=== PATIENT | female | born 1960 | race Caucasian/White ===

== ENCOUNTER 2019-07-08 16:02 | Emergency (ER) | payer MEDICARE, OTHER, SELFPAY ==
[2019-07-08 16:24] VITALS: BP 107/87; PULSE 101; RESP 18; TEMP 37.1; O2SAT 98; BMI 34.7
--- NOTE | 2019-07-08 18:40 | XR_ITS ---
WS: [id number] CHEST 2 VIEWS HISTORY: Cough COMPARISON: 12/09/2018 Lungs: Hyperexpanded lungs with changes of emphysema. No pneumonia and normal vasculature. Cardiac size: Normal. Mediastinum/Aorta: Mild atherosclerosis aorta. No mediastinal widening. Bones: Normal. XR/XR chest 2V* [id number] IMPRESSION: 1. Mild chronic emphysema. 2. No pneumonia.
--- NOTE | 2019-07-08 20:07 | W.ED.GENADLT ---
HPI - General Adult General: Chief complaint: General Medical Stated complaint: coughing/cold symptoms Time Seen by Provider: 07/08/19 20:03 History of Present Illness: HPI narrative: Patient is a 59-year-old female comes in a 59 y/o female with productive cough for the last 5 days.Patient states she coughs up yellow and white phlegm. Patient says she's had a fever. She denies any ear pain or sore throat but does have some nasal drainage. Denies abdominal pain, Nausea, vomiting, chest pain, hematuria, dysuria, constipation, diarrhea, blood in the stool. Review of Systems General: Reports: 10 or more systems reviewed and unremarkable except in HPI and below PFSH ED PFSH: Statuses (acute, chronic, etc) shown below reflect problem list status as previously entered and may not be historically accurate Social History Smoking and tobacco status: current every day smoker Physical Exam Const: COMMON NORMALS: oriented x3 HENMT: COMMON NORMALS: normocephalic, TM's normal bilaterally and external nose normal HEAD & SCALP: normocephalic NOSE: external nose normal TYMPANIC MEMBRANE: TM's normal bilaterally MOUTH: oral and palatal mucosa normal THROAT: posterior oropharynx normal and uvula midline Eye: COMMON NORMALS: PERRL and conjunctivae normal GENERAL EYE: normal appearance of both eyes CONJUNCTIVA: Yes conjunctivae normal PUPIL: Yes PERRL Neck/C-Spine: COMMON NORMALS: supple GENERAL: Yes normal visual inspection Resp: COMMON NORMALS: normal respiratory effort, no retractions, no use of accessory muscles and clear to auscultation bilaterally AUSCULTATION: clear to auscultation bilaterally, wheezes (mild) expiratory wheezes and upper bilaterally and diminished lung sounds (bases bilaterally) Cardio: COMMON NORMALS: regular rate, regular rhythm, S1 normal heart sound, S2 normal heart sound, no gallops, no clicks, no murmurs and peripheral pulses 2+ throughout RATE: regular rate RHYTHM: regular rhythm HEART SOUNDS: S1 normal and S2 normal PERIPHERAL PULSES: pulses 2+ throughout GI: COMMON NORMALS: normal to inspection, nondistended, normoactive bowel sounds, soft to palpation, non-tender and no masses PALPATION: Yes soft : COMMON NORMALS: Yes no CVA tenderness BLADDER/KIDNEY EXAM: Yes no CVA tenderness Back/Pelvis: COMMON NORMALS: no CVA tenderness Extremity: COMMON NORMALS: normal to inspection Neuro: COMMON NORMALS: oriented x3 Course ED course: Chest x-ray was performed and pending final radiology report. I reviewed the image looks like patient might have some bronchitis and possible pneumonia starting. I will put patient on an antibiotic and steroid. Vital Signs: Vital signs: Vital Signs Temperature 98.8 F 07/08/19 16:24 Pulse Rate 76 07/08/19 21:43 Respiratory Rate 18 07/08/19 21:43 Blood Pressure 120/73 07/08/19 21:43 Pulse Oximetry 97 07/08/19 21:43 [facility] - General Adult Lab Data: Labs: Lab Results 07/08/19 07/08/19 07/08/19 Range/Units 20:00 20:00 20:20 WBC 14.7 H (4.0-10.0) 10^3/ uL RBC 5.00 (4.1-5.3) 10^6/u L Hgb 13.7 (11.5-15.3) g/dL Hct 42.9 (37.0-47.0) % MCV 85.8 (81-99) fL MCH 27.4 L (28.0-34.0) pg MCHC 31.9 (30.0-36.0) g/dL RDW 12.2 (12.1-15.1) % Plt Count 468 H (130-400) 10^3/c mm MPV 9.5 (7.4-10.4) fL Neut % (Auto) 54.1 % Lymph % (Auto) 37.5 % [place] % (Auto) 5.6 % Eos % (Auto) 1.8 % Baso % (Auto) 0.5 % Neut # (Auto) 8.0 H (1.8-7.7) 10^3/u L Lymph # (Auto) 5.5 H (0.8-4.8) 10^3/u L [place] # (Auto) 0.8 (0.2-0.9) 10^3/u L Eos # (Auto) 0.3 (0.0-0.8) 10^3/u L Baso # (Auto) 0.1 (0.0-0.1) 10^3/u L Nucleated RBC % (a uto) 0 % Nucleated RBCs # 0.0 /100WBC Sodium 142 (136-145) mmol/L Potassium 4.2 (3.5-5.1) mmol/L Chloride 103 (98-107) mmol/L Carbon Dioxide 23 (22-29) mmol/L Anion Gap 20.2 H (5-19) BUN 6 (6-20) mg/dL Creatinine 0.7 (0.5-0.9) mg/dL GFR Calculation 86.2 L (90-130) mL/min Glucose 82 (74-109) mg/dL Calcium 10.7 H (8.6-10.0) mg/Dl Total Bilirubin 0.2 (0.15-1.2) mg/dL AST 16 (0-32) U/L ALT 10 (0-33) U/L Alkaline Phosphata se 156 H (35-105) IU/L Total Protein 7.5 (6.6-8.7) g/dL Albumin 4.6 (3.5-5.2) g/dL Globulin 2.9 (1.3-4.6) g/dL Influenza Type A A g Negative (Negative) POC Influenza B Ag Negative (Negative) Discharge Plan Discharge Patient Disposition: Home, Self-Care Clinical Impression: Bronchitis, chronic obstructive w acute bronchitis Condition: Stable Prescriptions: New prednisone 20 mg tablet 20 mg PO TID Qty: 15 RF: 0 azithromycin 250 mg tablet See Rx Instructions .ROUTE .COMPLEX Qty: 6 RF: 0 No Action Lantus Solostar U-100 Insulin 100 unit/mL (3 mL) Insulin Pen 30 unit SUBCUT QAM RF: 0 Seroquel 25 mg Tablet 25 mg PO DAILY RF: 0 Prozac 40 mg Capsule 80 mg PO DAILY RF: 0 cyclobenzaprine 10 mg Tablet 10 mg PO TID PRN (Reason: Muscle Spasm) RF: 0 Advair Diskus 250-50 mcg/dose Blister With Device 1 inh INHALATION BID RF: 0 albuterol sulfate 2.5 mg /3 mL (0.083 %) Solution For Nebulization 2.5 mg INHALATION Q4H RF: 0 atorvastatin 10 mg Tablet 10 mg PO DAILY RF: 0 prazosin 1 mg Capsule 1 mg PO QPM RF: 0 isosorbide mononitrate 30 mg Tablet Extended Release 24 Hr 30 mg PO BID RF: 0 Stool Softener-Laxative 8.6-50 mg Tablet 1 tab-cap PO DAILY PRN (Reason: Constipation) RF: 0 aspirin 81 mg Tablet,Delayed Release (Dr/Ec) 81 mg PO DAILY RF: 0 gemfibrozil 600 mg Tablet 600 mg PO BID RF: 0 hydrocodone-acetaminophen 7.5-325 mg Tablet 1 tab PO Q6H PRN (Reason: Pain) RF: 0 Protonix 40 mg Tablet,Delayed Release (Dr/Ec) 40 mg PO BID RF: 0 Nitrostat 0.4 mg Tablet, Sublingual 0.4 mg SUBLINGUAL Q5M PRN (Reason: chest pain) RF: 0 Singulair 10 mg Tablet 10 mg PO DAILY RF: 0 Lasix 20 mg Tablet 20 mg PO DAILY PRN (Reason: Edema) RF: 0 ProAir HFA 90 mcg/actuation Hfa Aerosol Inhaler 2 puff INHALATION 6XD RF: 0 Claritin 10 mg Tablet 10 mg PO DAILY RF: 0 Humalog KwikPen Insulin 100 unit/mL Insulin Pen See Protocol unit SUBCUT RF: 0 Lantus Solostar U-100 Insulin 100 unit/mL (3 mL) Insulin Pen 20 unit SUBCUT QPM RF: 0 potassium gluconate 595 mg (99 mg) Tablet 595 mg PO DAILY RF: 0 magnesium oxide 400 mg magnesium Tablet 400 mg PO DAILY RF: 0 Women's 50 Plus Multivitamin 1 tab 1 tab PO DAILY RF: 0 Discharge Orders: Discharge Order (Routine); Ordered 07/08/19 Ordered By: Reji Ryan Referrals: Nikole Miller DO [Primary Care Provider] - Discharge Diet: Regular Discharge Activity: Resume usual activity Activity Restrictions/Additional Instructions: Follow-up with her primary care doctor in 5-7 days for reevaluation. Take full course of antibiotics and steroids as prescribed. Continue taking at home medications and using inhalers/ breathing treatments as previously prescribed. Discharge Date/Time: 07/08/19 21:46 Coding Level of Care Code ED Assistant Teacher Primary for Nancy Hayward
[2019-07-08 20:10] LABS: Basophils # 0.1 10^3/uL (0.0-0.1); Basophils % 0.5 %; Eosinophils # 0.3 10^3/uL (0.0-0.8); Eosinophils % 1.8 %; Hematocrit 42.9 % (37.0-47.0); Hemoglobin 13.7 g/dL (11.5-15.3); Lymphocytes # 5.5 10^3/uL (0.8-4.8); Lymphocytes % 37.5 %; Mean Corpuscular HGB Conc 31.9 g/dL (30.0-36.0); Mean Corpuscular Hemoglobin 27.4 pg (28.0-34.0); Mean Corpuscular Volume 85.8 fL (81-99); Mean Platelet Volume 9.5 fL (7.4-10.4); Monocytes # 0.8 10^3/uL (0.2-0.9); Monocytes % 5.6 %; Neutrophils % 54.1 %; Nucleated Red Blood Cells % 0 %; Platelet Count 468 10^3/cmm (130-400); Red Cell Distribution Width 12.2 % (12.1-15.1); White Blood Count 14.7 10^3/uL (4.0-10.0)
[2019-07-08] MEDS: ipratropium-albuterol 3 mL Neb INHALATION (20:38)
[2019-07-08 20:39] VITALS: PULSE 75; RESP 18; O2SAT 99
[2019-07-08 20:40] VITALS: PULSE 74; RESP 16; O2SAT 98
[2019-07-08] MEDS: predniSONE 20 mg Tablet 60 MG PO (21:37)
[2019-07-08 21:43] VITALS: BP 120/73; PULSE 76; RESP 18; O2SAT 97
[2019-07-08 21:56] LABS: Influenza A by IFA Negative (Negative)
[2019-07-08 21:57] LABS: Influenza B by IFA Negative (Negative)
[2019-07-09 03:44] LABS: Alanine Aminotransferase 10 U/L (0-33); Albumin Level 4.6 g/dL (3.5-5.2); Alkaline Phosphatase 156 IU/L (35-105); Anion Gap 20.2 (5-19); Aspartate Amino Transferase 16 U/L (0-32); Blood Urea Nitrogen 6 mg/dL (6-20); Calcium 10.7 mg/Dl (8.6-10.0); Carbon Dioxide 23 mmol/L (22-29); Chloride 103 mmol/L (98-107); Globulin 2.9 g/dL (1.3-4.6); Glomerular Filtration Rate 86.2 mL/min (90-130); Glucose 82 mg/dL (74-109); Potassium 4.2 mmol/L (3.5-5.1); Sodium 142 mmol/L (136-145); Total Bilirubin 0.2 mg/dL (0.15-1.2); Total Protein 7.5 g/dL (6.6-8.7)
== END 2019-07-08 21:46 | disposition home or self-care (01) ==
PROVIDERS: Emergency Provider Physician Assistant; Family Provider Family Medicine; PCP Family Medicine
DX: J44.0 Chronic obstructive pulmonary disease with (acute) lower respiratory infection (principal); J20.9 Acute bronchitis, unspecified; Z79.82 Long term (current) use of aspirin; F17.210 Nicotine dependence, cigarettes, uncomplicated; Z79.4 Long term (current) use of insulin
CPT/HCPCS: 36415; 71046; 80053; 85025; 87804; 99281; 99283; J7512

== ENCOUNTER → 2020-01-13 08:53 | Outpatient (BNVA) | payer MEDICARE, OTHER, SELFPAY | PROVIDERS: Family Provider Family Medicine; PCP Family Medicine; Visit Provider Family Medicine | DX: E78.2 Mixed hyperlipidemia (principal) | CPT/HCPCS: 80061 ==

== ENCOUNTER 2020-02-25 13:10 | Emergency (ER) | payer MEDICARE, OTHER, SELFPAY ==
[2020-02-25 13:13] VITALS: BP 144/88; PULSE 96; RESP 18; TEMP 36.8; O2SAT 97; BMI 35.6
--- NOTE | 2020-02-25 13:32 | CT_ITS ---
WS: [id number] CT FACIAL BONES TECHNIQUE: Contrast-enhanced facial bones with coronal and sagittal reformatted images. CLINICAL INFORMATION: L sided facial swelling COMPARISON: None. DLP: 774.[address] scans at [facility] use at least one of these dose optimization techniques: automat ed exposure control; mA and/or kV adjustment per patient size (includes targeted exams where dose is matched to clinical indication); or iterative reconstruction. FINDINGS: Enlargement of the left parotid gland with surrounding mild inflammatory stranding and edema consiste nt with parotiditis. Thickening of the adjacent left platysma. Heterogeneously enhancing intraparotid lesion measuring 2.1 x 1.6 x 1.9 CM. Additional smaller heterogeneously enhancing lesion in the righ t parotid gland measuring 0.7 x 1.0 x 1.1 CM. Slight asymmetry involving the right palatine tonsil and tongue base with mild mass effect on the tomi pharynx. Recommend direct visualization. Normal posterior nasopharynx. Prior postoperative changes left mastoidectomy right mastoid air cells are well aerated. Mild mucosal thickening paranasal sinuses. Small amount of fluid in the right maxillary sinus and sphenoid sinuse s. CT/CT facial bones w con [id number] IMPRESSION: 1. Inflammatory stranding and edema with enlargement of the left parotid gland consistent with parotiditis 2. Heterogeneous enhancing intraparotid lesion measuring up to 2.1 cm suspicio us for parotid neoplasm. Recommend ENT consultation. 3. Smaller heterogeneously enhancing right parotid lesion measuring 1.1 cm in maximum dimension. This lesion also suspicious for small parotid neoplasm. 4. Slight asymmetry of the right tongue base and palatine tonsil. Recommend di rect visualization. 5. Submandibular glands are normal. 6. Mild sinusitis with fluid in the right maxillary sinus and sphenoid sinuses . 7. Prior left mastoidectomy. Attempted notification RADHA Ferris at 02/25/2020 2:41 PM.
--- NOTE | 2020-02-25 13:34 | W.ED.GENADLT ---
Documented by User: RADHA Ferris 02/26/20 06:57 HPI - General Adult General: Chief complaint: General Medical Stated complaint: facial swelling Time Seen by Provider: 02/25/20 13:19 Source: patient Mode of arrival: ambulatory Limitations: no limitations History of Present Illness: HPI narrative: Patient is a 59-year-old female presents to ED today with complaints of left-sided facial swelling that began a few hours ago after eating. Patient states the left side of her face is extremely painful. She states pain seems to be worse when she is tried to eat or drink or movement of her jaw. Patient has never had any previous similar episodes. She does have a history of a cholesteatoma and subsequently mastoidectomy to the left ear but that does not seem to be bothering her today. Onset (ago): hour(s) Location: face Pain Consistency: constant Exacerbating factors: eating Associated symptoms: Deny chest pain, dyspnea, headache(s), malaise, nausea, rash or vomiting Treatments prior to arrival: other (hydrocodone) Review of Systems Const: Denies: fever(s), chills, body aches, fatigue or malaise Eyes: Denies: change in vision, blurry vision, blind spots, photophobia, eye discharge, floaters or seeing flashes ENMT: Reports: sinus pain (L sided facial pain/swelling); Denies: throat pain, enlarged tonsils, odynophagia, mouth pain, swelling of lips/tongue, oral sores, dental pain, ear or mastoid pain, ear discharge, change in hearing, tinnitus, nasal discharge or nasal congestion Card: Denies: chest pain Resp: Denies: dyspnea GI: Denies: nausea or vomiting Musc: Denies: neck pain Skin/Breast: Denies: rash Neuro: Denies: headache(s) PFS ED PFSH: Medical History (Updated 02/25/20 @ 16:26 by RADHA Ferris) Chest pain COPD (chronic obstructive pulmonary disease) GERD (gastroesophageal reflux disease) Hyperlipidemia PTSD (post-traumatic stress disorder) Type 2 diabetes mellitus, with long-term current use of insulin Surgical History (Updated 01/13/20 @ 08:33 by Gerri Billy DO) H/O section History of mastoidectomy S/P appendectomy S/P cholecystectomy S/P hysterectomy S/P rotator cuff repair Family History Other Diabetes Heart disease Hypercholesterolemia Hypertension Osteoporosis Social History Smoking and tobacco status: current every day smoker cigarettes Packs smoked per day: 1 Alcohol intake: never Physical Exam Const: COMMON NORMALS: no acute distress, patient oriented x3, no limitations and alert HENMT: COMMON NORMALS: normocephalic, atraumatic, hearing grossly normal bilaterally, external ears normal, EAC's normal, Normal external nose present, Normal nasal mucous membranes and turbinates present, moist oral mucous membranes, oropharynx normal and gingiva normal HEAD & SCALP: normal to inspection, normocephalic and atraumatic FACE & SINUS: sinuses nontender and other (L facial swelling over parotid gland) NOSE: Normal external nose present, Normal nares present and Normal nasal mucous membranes and turbinates present EXTERNAL EAR: Yes external ears normal EXTERNAL AUDITORY CANAL: EAC's normal TYMPANIC MEMBRANE: TM abnormal (hx of cholesteatoma) TM laterality: left MOUTH: Normal oral and palatal mucosa present, lip normal, tongue normal and Abnormal salivary glands and ducts (ducts appear normal; swelling to L parotid gland ) TEETH & GINGIVA: Yes edentulous THROAT: posterior oropharynx normal, tonsils normal and uvula midline Eye: COMMON NORMALS: Equal, round and reactive pupils present, EOMs intact bilaterally, conjunctivae normal and no scleral icterus GENERAL EYE: appearance normal, both eyes and all related structures CONJUNCTIVA: Yes conjunctivae normal PUPIL: Yes Equal, round and reactive pupils present Neck/C-Spine: COMMON NORMALS: full ROM and no lymphadenopathy Resp: COMMON NORMALS: normal respiratory effort and clear to auscultation bilaterally AUSCULTATION: clear to auscultation bilaterally Cardio: COMMON NORMALS: regular rate and regular rhythm RATE: regular rate RHYTHM: regular rhythm Neuro: COMMON NORMALS: patient oriented x3 and CN's II-XII intact bilaterally SENSORIUM/ORIENTATION: Yes alert Skin: COMMON NORMALS: no rashes or lesions noted GENERAL SKIN EXAM: no rashes or lesions noted Course Consultations: Consultation #1: Melani Valencia ENT (spoke to nurse at his office who went over CT findings with physician); does not recommend abx/steroids; will see patient on ; confirmed he was not concerned with mild mass effect at this time Vital Signs: Vital signs: Vital Signs Temperature 98.3 F 02/25/20 13:13 Pulse Rate 91 02/25/20 16:43 Respiratory Rate 18 02/25/20 16:43 Blood Pressure 121/60 02/25/20 16:43 Pulse Oximetry 95 02/25/20 16:43 MDM - General Adult MDM Narrative: Medical decision making narrative: Patient appears in no acute distress. She is speaking normally. She is controlling her own secretions. She is been able to drink since swelling started. At this point ENT did not recommend steroids or antibiotics. They will see patient on . Strict return to ED precautions given. Lab Data: Labs: Lab Results 02/25/20 02/25/20 Range/Units 13:45 13:45 WBC 9.2 (4.0-10.0) 10^3/ uL RBC 4.80 (4.1-5.3) 10^6/u L Hgb 13.3 (11.5-15.3) g/dL Hct 41.3 (37.0-47.0) % MCV 86.0 (81-99) fL MCH 27.7 L (28.0-34.0) pg MCHC 32.2 (30.0-36.0) g/dL RDW 12.3 (12.1-15.1) % Plt Count 446 H (130-400) 10^3/c mm MPV 9.4 (7.4-10.4) fL Neut % (Auto) 53.4 % Lymph % (Auto) 35.1 % [place] % (Auto) 7.2 % Eos % (Auto) 3.0 % Baso % (Auto) 0.9 % Neut # (Auto) 4.92 (1.8-7.7) 10^3/u L Lymph # (Auto) 3.2 (0.8-4.8) 10^3/u L [place] # (Auto) 0.7 (0.2-0.9) 10^3/u L Eos # (Auto) 0.3 (0.0-0.8) 10^3/u L Baso # (Auto) 0.1 (0.0-0.1) 10^3/u L Nucleated RBC % (a uto) 0 % Nucleated RBCs # 0.0 /100WBC Sodium 139 (136-145) mmol/L Potassium 4.1 (3.5-5.1) mmol/L Chloride 102 (98-107) mmol/L Carbon Dioxide 25 (22-29) mmol/L Anion Gap 16.1 (5-19) BUN 11 (6-20) mg/dL Creatinine 0.8 (0.5-0.9) mg/dL GFR Calculation 73.9 L (90-130) mL/min Glucose 293 H (65-115) mg/dL Calculated Osmolal ity 295 (285-295) mOsm/k g Calcium 9.6 (8.5-10.5) mg/dL Total Bilirubin 0.2 (0.15-1.2) mg/dL AST 11 (0-32) U/L ALT 8 (0-33) U/L Alkaline Phosphata se 159 H (35-105) IU/L Total Protein 7.3 (6.6-8.7) g/dL Albumin 4.4 (3.5-5.2) g/dL Globulin 2.9 (1.3-4.6) g/dL Imaging Data^: CT facial: Radiologist's impression: [place] [address] CT Scan Report Signed Patient: Marcy Marina Unit #: [id number] : 1960 Age/Sex: 59 / F ADM Date: 02/25/20 Loc: ER Room/Bed: Attending Dr: Ordering Provider/Ordering MD: Pauly Butler Date of Service: 02/25/20 Procedure(s): CT facial bones w [facility] [address] Accession Number(s): [id number] Report Number: [id number] WS: [id number] CT FACIAL BONES TECHNIQUE: Contrast-enhanced facial bones with coronal and sagittal reformatted images. CLINICAL INFORMATION: L sided facial swelling COMPARISON: None. DLP: 774.[address] scans at [facility] use at least one of these dose optimization techniques: automated exposure control; mA and/or kV adjustment per patient size (includes targeted exams where dose is matched to clinical indication); or iterative reconstruction. FINDINGS: Enlargement of the left parotid gland with surrounding mild inflammatory stranding and edema consistent with parotiditis. Thickening of the adjacent left platysma. Heterogeneously enhancing intraparotid lesion measuring 2.1 x 1.6 x 1.9 CM. Additional smaller heterogeneously enhancing lesion in the right parotid gland measuring 0.7 x 1.0 x 1.1 CM. Slight asymmetry involving the right palatine tonsil and tongue base with mild mass effect on the oropharynx. Recommend direct visualization. Normal posterior nasopharynx. Prior postoperative changes left mastoidectomy right mastoid air cells are well aerated. Mild mucosal thickening paranasal sinuses. Small amount of fluid in the right maxillary sinus and sphenoid sinuses. CT/[place] bones w con [id number] IMPRESSION: 1. Inflammatory stranding and edema with enlargement of the left parotid gland consistent with parotiditis 2. Heterogeneous enhancing intraparotid lesion measuring up to 2.1 cm suspicious for parotid neoplasm. Recommend ENT consultation. 3. Smaller heterogeneously enhancing right parotid lesion measuring 1.1 cm in maximum dimension. This lesion also suspicious for small parotid neoplasm. 4. Slight asymmetry of the right tongue base and palatine tonsil. Recommend direct visualization. 5. Submandibular glands are normal. 6. Mild sinusitis with fluid in the right maxillary sinus and sphenoid sinuses. 7. Prior left mastoidectomy. Attempted notification RADHA Ferris at 02/25/2020 2:41 PM. Dictated By: David Day MD Signed By: David Day MD Signed Date/Time: 02/25/20 1441 DD/ 1422 Discharge Plan Discharge Patient Disposition: Home Clinical Impression: Acute parotitis, Lesion of parotid gland Condition: Stable Prescriptions: No Action cinnamon bark [Cinnamon] 500 mg capsule 2,000 mg PO BEDTIME RF: 0 Nitrostat 0.4 mg tablet, sublingual 0.4 mg SUBLINGUAL Q5M PRN (Reason: chest pain) Qty: 25 RF: 4 Protonix 40 mg tablet,delayed release (DR/EC) 40 mg PO BID Qty: 60 RF: 2 fluoxetine [Prozac] 40 mg capsule 80 mg PO DAILY Qty: 60 RF: 2 gemfibrozil 600 mg tablet 600 mg PO BID 90 Days Qty: 180 RF: 0 isosorbide mononitrate 30 mg tablet extended release 24 hr 45 mg PO BID Qty: 270 RF: 3 Benadryl Allergy 25 mg Tablet 25 mg PO BEDTIME PRN (Reason: Allergy Symptoms) RF: 0 Humalog KwikPen Insulin 100 unit/mL insulin pen See Rx Instructions .ROUTE .COMPLEX RF: 0 Seroquel 25 mg tablet 25 mg PO BEDTIME RF: 0 prazosin 1 mg capsule 1 mg PO QPM RF: 0 cyclobenzaprine 10 mg Tablet 10 mg PO TID PRN (Reason: Muscle Spasm) RF: 0 atorvastatin 10 mg Tablet 10 mg PO BEDTIME RF: 0 sennosides-docusate sodium [Stool Softener-Laxative] 8.6-50 mg Tablet 1 tab-cap PO BEDTIME PRN (Reason: Constipation) RF: 0 aspirin 81 mg Tablet,Delayed Release (Dr/Ec) 81 mg PO BEDTIME RF: 0 hydrocodone-acetaminophen 7.5-325 mg Tablet 1 tab PO QID PRN (Reason: Pain) RF: 0 furosemide [Lasix] 20 mg Tablet 20 mg PO DAILY PRN (Reason: Edema) RF: 0 albuterol sulfate [ProAir HFA] 90 mcg/actuation Hfa Aerosol Inhaler 2 puff INHALATION 6XD PRN (Reason: Shortness Of Breath) RF: 0 loratadine [Claritin] 10 mg Tablet 10 mg PO DAILY RF: 0 magnesium oxide 400 mg magnesium Tablet 400 mg PO BEDTIME RF: 0 Women's 50 Plus Multivitamin 1 tab 1 tab PO BEDTIME RF: 0 albuterol sulfate 2.5 mg /3 mL (0.083 %) solution for nebulization 2.5 mg INHALATION Q4H PRN (Reason: Shortness Of Breath) RF: 0 Lantus Solostar U-100 Insulin 100 unit/mL (3 mL) insulin pen See Rx Instructions .ROUTE .COMPLEX RF: 0 potassium gluconate 595 mg (99 mg) tablet 595 mg PO DAILY PRN (Reason: unknown) RF: 0 Discharge Orders: Discharge Order (Routine); Ordered 02/25/20 Ordered By: Pauly Butler Referrals: Gerri Billy DO [Primary Care Provider] - Patient Instructions: Parotid Duct Obstruction (ED), Sialoadenitis (ED) Activity Restrictions/Additional Instructions: As discussed you have a follow-up appointment with Melani Valencia ENT on February 26 at 3:30 PM at the [facility]. Address is [address] [place] [address]. Phone number is [phone]. You need to return to the emergency department immediately for any difficulty swallowing, difficulty breathing, or any other concerns you may have. Discharge Date/Time: 02/25/20 16:45 Coding Level of Care Code ED Pediatric Neuropsychologist for Chg Fwd Exam Comprehensive Documented by User: Linh Urbina MD 02/26/20 20:29 HPI - General Adult General: Chief complaint: General Medical Stated complaint: facial swelling Time Seen by Provider: 02/25/20 13:19 PFSH ED PFSH: Medical History (Updated 02/25/20 @ 16:26 by RADHA Ferris) Chest pain COPD (chronic obstructive pulmonary disease) GERD (gastroesophageal reflux disease) Hyperlipidemia PTSD (post-traumatic stress disorder) Type 2 diabetes mellitus, with long-term current use of insulin Surgical History (Updated 01/13/20 @ 08:33 by Gerri Billy DO) H/O section History of mastoidectomy S/P appendectomy S/P cholecystectomy S/P hysterectomy S/P rotator cuff repair Family History Other Diabetes Heart disease Hypercholesterolemia Hypertension Osteoporosis Social History Smoking and tobacco status: current every day smoker cigarettes Packs smoked per day: 1 Alcohol intake: never Course Vital Signs: Vital signs: Vital Signs Temperature 98.3 F 02/25/20 13:13 Pulse Rate 91 02/25/20 16:43 Respiratory Rate 18 02/25/20 16:43 Blood Pressure 121/60 02/25/20 16:43 Pulse Oximetry 95 02/25/20 16:43 MDM - General Adult Lab Data: Labs: Lab Results 08/25/20 08/25/20 Range/Units 13:45 13:45 WBC 9.2 (4.0-10.0) 10^3/ uL RBC 4.80 (4.1-5.3) 10^6/u L Hgb 13.3 (11.5-15.3) g/dL Hct 41.3 (37.0-47.0) % MCV 86.0 (81-99) fL MCH 27.7 L (28.0-34.0) pg MCHC 32.2 (30.0-36.0) g/dL RDW 12.3 (12.1-15.1) % Plt Count 446 H (130-400) 10^3/c mm MPV 9.4 (7.4-10.4) fL Neut % (Auto) 53.4 % Lymph % (Auto) 35.1 % [place] % (Auto) 7.2 % Eos % (Auto) 3.0 % Baso % (Auto) 0.9 % Neut # (Auto) 4.92 (1.8-7.7) 10^3/u L Lymph # (Auto) 3.2 (0.8-4.8) 10^3/u L [place] # (Auto) 0.7 (0.2-0.9) 10^3/u L Eos # (Auto) 0.3 (0.0-0.8) 10^3/u L Baso # (Auto) 0.1 (0.0-0.1) 10^3/u L Nucleated RBC % (a uto) 0 % Nucleated RBCs # 0.0 /100WBC Sodium 139 (136-145) mmol/L Potassium 4.1 (3.5-5.1) mmol/L Chloride 102 (98-107) mmol/L Carbon Dioxide 25 (22-29) mmol/L Anion Gap 16.1 (5-19) BUN 11 (6-20) mg/dL Creatinine 0.8 (0.5-0.9) mg/dL GFR Calculation 73.9 L (90-130) mL/min Glucose 293 H (65-115) mg/dL Calculated Osmolal ity 295 (285-295) mOsm/k g Calcium 9.6 (8.5-10.5) mg/dL Total Bilirubin 0.2 (0.15-1.2) mg/dL AST 11 (0-32) U/L ALT 8 (0-33) U/L Alkaline Phosphata se 159 H (35-105) IU/L Total Protein 7.3 (6.6-8.7) g/dL Albumin 4.4 (3.5-5.2) g/dL Globulin 2.9 (1.3-4.6) g/dL Discharge Plan Discharge Patient Disposition: Home Clinical Impression: Acute parotitis, Lesion of parotid gland Condition: Stable Prescriptions: No Action cinnamon bark [Cinnamon] 500 mg capsule 2,000 mg PO BEDTIME RF: 0 Nitrostat 0.4 mg tablet, sublingual 0.4 mg SUBLINGUAL Q5M PRN (Reason: chest pain) Qty: 25 RF: 4 Protonix 40 mg tablet,delayed release (DR/EC) 40 mg PO BID Qty: 60 RF: 2 fluoxetine [Prozac] 40 mg capsule 80 mg PO DAILY Qty: 60 RF: 2 gemfibrozil 600 mg tablet 600 mg PO BID 90 Days Qty: 180 RF: 0 isosorbide mononitrate 30 mg tablet extended release 24 hr 45 mg PO BID Qty: 270 RF: 3 Benadryl Allergy 25 mg Tablet 25 mg PO BEDTIME PRN (Reason: Allergy Symptoms) RF: 0 Humalog KwikPen Insulin 100 unit/mL insulin pen See Rx Instructions .ROUTE .COMPLEX RF: 0 Seroquel 25 mg tablet 25 mg PO BEDTIME RF: 0 prazosin 1 mg capsule 1 mg PO QPM RF: 0 cyclobenzaprine 10 mg Tablet 10 mg PO TID PRN (Reason: Muscle Spasm) RF: 0 atorvastatin 10 mg Tablet 10 mg PO BEDTIME RF: 0 sennosides-docusate sodium [Stool Softener-Laxative] 8.6-50 mg Tablet 1 tab-cap PO BEDTIME PRN (Reason: Constipation) RF: 0 aspirin 81 mg Tablet,Delayed Release (Dr/Ec) 81 mg PO BEDTIME RF: 0 hydrocodone-acetaminophen 7.5-325 mg Tablet 1 tab PO QID PRN (Reason: Pain) RF: 0 furosemide [Lasix] 20 mg Tablet 20 mg PO DAILY PRN (Reason: Edema) RF: 0 albuterol sulfate [ProAir HFA] 90 mcg/actuation Hfa Aerosol Inhaler 2 puff INHALATION 6XD PRN (Reason: Shortness Of Breath) RF: 0 loratadine [Claritin] 10 mg Tablet 10 mg PO DAILY RF: 0 magnesium oxide 400 mg magnesium Tablet 400 mg PO BEDTIME RF: 0 Women's 50 Plus Multivitamin 1 tab 1 tab PO BEDTIME RF: 0 albuterol sulfate 2.5 mg /3 mL (0.083 %) solution for nebulization 2.5 mg INHALATION Q4H PRN (Reason: Shortness Of Breath) RF: 0 Lantus Solostar U-100 Insulin 100 unit/mL (3 mL) insulin pen See Rx Instructions .ROUTE .COMPLEX RF: 0 potassium gluconate 595 mg (99 mg) tablet 595 mg PO DAILY PRN (Reason: unknown) RF: 0 Discharge Orders: Discharge Order (Routine); Ordered 02/25/20 Ordered By: Pauly Butler Referrals: Gerri Billy DO [Primary Care Provider] - Patient Instructions: Parotid Duct Obstruction (ED), Sialoadenitis (ED) Activity Restrictions/Additional Instructions: As discussed you have a follow-up appointment with Melani Valencia ENT on February 26 at 3:30 PM at the [facility]. Address is [address] [place] [address]. Phone number is [phone]. You need to return to the emergency department immediately for any difficulty swallowing, difficulty breathing, or any other concerns you may have. Discharge Date/Time: 02/25/20 16:45 Coding Level of Care Code ED Pediatric Neuropsychologist for Chg Fwd Exam Comprehensive
[2020-02-25 13:52] LABS: Basophils # 0.1 10^3/uL (0.0-0.1); Basophils % 0.9 %; Eosinophils # 0.3 10^3/uL (0.0-0.8); Hematocrit 41.3 % (37.0-47.0); Hemoglobin 13.3 g/dL (11.5-15.3); Lymphocytes # 3.2 10^3/uL (0.8-4.8); Lymphocytes % 35.1 %; Mean Corpuscular HGB Conc 32.2 g/dL (30.0-36.0); Mean Corpuscular Hemoglobin 27.7 pg (28.0-34.0); Mean Platelet Volume 9.4 fL (7.4-10.4); Monocytes # 0.7 10^3/uL (0.2-0.9); Monocytes % 7.2 %; Neutrophils # 4.92 10^3/uL (1.8-7.7); Neutrophils % 53.4 %; Nucleated Red Blood Cells % 0 %; Platelet Count 446 10^3/cmm (130-400); Red Cell Distribution Width 12.3 % (12.1-15.1); White Blood Count 9.2 10^3/uL (4.0-10.0)
[2020-02-25 14:09] LABS: Alanine Aminotransferase 8 U/L (0-33); Albumin Level 4.4 g/dL (3.5-5.2); Alkaline Phosphatase 159 IU/L (35-105); Anion Gap 16.1 (5-19); Aspartate Amino Transferase 11 U/L (0-32); Blood Urea Nitrogen 11 mg/dL (6-20); Calcium 9.6 mg/dL (8.5-10.5); Carbon Dioxide 25 mmol/L (22-29); Chloride 102 mmol/L (98-107); Globulin 2.9 g/dL (1.3-4.6); Glomerular Filtration Rate 73.9 mL/min (90-130); Glucose 293 mg/dL (65-115); Osmolality Calculated 295 mOsm/kg (285-295); Potassium 4.1 mmol/L (3.5-5.1); Sodium 139 mmol/L (136-145); Total Bilirubin 0.2 mg/dL (0.15-1.2); Total Protein 7.3 g/dL (6.6-8.7)
[2020-02-25 14:12] VITALS: RESP 18
[2020-02-25] MEDS: fentaNYL 50 mcg/mL INJ 2mL IVP ×2 (14:12→15:00)
[2020-02-25] MEDS: metoclopramide 5 mg/mL SDV 2 mL 10 MG IVP (14:13)
[2020-02-25] MEDS: iohexol 300 mg/mL 100 mL Btl IV (14:17)
[2020-02-25 14:28] VITALS: BP 109/67; PULSE 75; RESP 17; O2SAT 93
[2020-02-25 15:00] VITALS: RESP 18
[2020-02-25 16:43] VITALS: BP 121/60; PULSE 91; RESP 18; O2SAT 95
== END 2020-02-25 16:45 | disposition home or self-care (01) ==
PROVIDERS: Emergency Provider Physician Assistant; PCP Family Medicine
DX: K11.21 Acute sialoadenitis (principal); Z79.82 Long term (current) use of aspirin; Z79.4 Long term (current) use of insulin; J44.9 Chronic obstructive pulmonary disease, unspecified; E78.5 Hyperlipidemia, unspecified; E11.9 Type 2 diabetes mellitus without complications; F17.210 Nicotine dependence, cigarettes, uncomplicated
CPT/HCPCS: 12345; 36415; 70487; 80053; 85025; 96374; 96375; 96376; 99283; J2765; J3010; Q9967

== ENCOUNTER → 2020-05-20 11:14 | Outpatient (BNVA) | payer MEDICARE, OTHER, SELFPAY | PROVIDERS: PCP Family Medicine; Visit Provider Nurse Practitioner Family | DX: S60.212A Contusion of left wrist, initial encounter (principal); X58.XXXA Exposure to other specified factors, initial encounter | CPT/HCPCS: 73110 ==

== ENCOUNTER 2020-09-04 11:08 | Outpatient (CLI) | payer MEDICARE, OTHER, SELFPAY ==
--- NOTE | 2020-09-04 11:30 | CT_ITS ---
WS: [id number] CT CHEST WITHOUT INTRAVENOUS CONTRAST HISTORY: COPD TECHNIQUE: Contiguous 5 mm axial imaging performed on the thorax. Coronal and sagittal reformats are submitted. All CT scans at [facility] use at least one of these dose optimization techniq ues: automated exposure control; mA and/or kV adjustment per patient size (includes targeted exams wh ere dose is matched to clinical indication); or iterative reconstruction. CONTRAST: None DLP: 959.49 mGy.cm COMPARISON: 09/19/2017 Lungs and central airway: Mildly hyperexpanded lungs. 5 mm linear asymmetry in the anterior LEFT uppe r lobe corresponds to a prominent vessel on the lateral projection. Long-term stability of a 5 mm nod ule at the RIGHT lung base near the diaphragmatic surface. No pneumonia. Pleura: Normal. No pleural effusion. Heart and pericardium: Normal size heart with no pericardial effusion. Mediastinum and annie: No mediastinum or hilar adenopathy. Vessels: Mild atherosclerosis aorta. LEFT vertebral artery arises directly from the aortic arch. Pulm onary artery size is equal to the aorta. Chest wall and lower neck: Mildly enlarged thyroid extends up sternal. No definite nodules are identi fied. Upper abdomen: Prior cholecystectomy. Mild hepatic steatosis. No adrenal mass. Osseous structures: No destructive process. CT/CT chest wo con [id number] IMPRESSION: 1. No suspicious mass or pulmonary nodules. No pneumonia. 2. Mild emphysema. 3. Mild atherosclerosis aorta.
== END 2020-09-04 11:09 | disposition home or self-care (01) ==
LOC: RAD 11:11
PROVIDERS: PCP Nurse Practitioner Family; Visit Provider Internal Medicine Pulmonary Disease
DX: J44.9 Chronic obstructive pulmonary disease, unspecified (principal); I70.0 Atherosclerosis of aorta
CPT/HCPCS: 71250

== ENCOUNTER → 2020-09-18 10:07 | Outpatient (BNVA) | payer MEDICARE, OTHER, SELFPAY | PROVIDERS: PCP Nurse Practitioner Family; Visit Provider Internal Medicine Pulmonary Disease | DX: J44.9 Chronic obstructive pulmonary disease, unspecified (principal); Z11.52 Encounter for screening for COVID-19 | CPT/HCPCS: 87635 ==

== ENCOUNTER 2020-09-23 09:16 | Outpatient (CLI) | payer MEDICARE, OTHER, SELFPAY ==
--- NOTE | 2020-09-23 14:04 | PFTS_ITS ---
Date of Study:09/23/20 Date of Dictation: MECHANICS: Forced vital capacity (FVC) is normal. Forced expiratory volume in one second (FEV1) is normal. FEV1/FVC is normal. FLOW VOLUME LOOP: Normal. LUNG VOLUMES: Total lung capacity (TLC) is normal. Residual volume (RV) is normal. DIFFUSING CAPACITY FOR CARBON MONOXIDE: Normal. INTERPRETATION: The pulmonary function tests are normal. MTDD
== END 2020-09-23 09:17 | disposition home or self-care (01) ==
LOC: RT 09:19
PROVIDERS: PCP Nurse Practitioner Family; Visit Provider Internal Medicine Pulmonary Disease
DX: J44.9 Chronic obstructive pulmonary disease, unspecified (principal)
CPT/HCPCS: 94010; 94726; 94729

== ENCOUNTER 2020-10-15 12:30 | Outpatient (CLI) | payer MEDICARE, OTHER, SELFPAY ==
[2020-10-15 12:59] LABS: Basophils # 0.1 10^3/uL (0.0-0.1); Basophils % 0.7 %; Eosinophils # 0.5 10^3/uL (0.0-0.8); Eosinophils % 4.8 %; Hematocrit 39.2 % (37.0-47.0); Hemoglobin 12.8 g/dL (11.5-15.3); Lymphocytes % 27.9 %; Mean Corpuscular HGB Conc 32.7 g/dL (30.0-36.0); Mean Corpuscular Hemoglobin 28.1 pg (28.0-34.0); Mean Platelet Volume 9.8 fL (7.4-10.4); Monocytes # 0.7 10^3/uL (0.2-0.9); Neutrophils % 60.1 %; Nucleated Red Blood Cells % 0 %; Platelet Count 444 10^3/cmm (130-400); Red Blood Count 4.56 10^6/uL (4.1-5.3); White Blood Count 10.8 10^3/uL (4.0-10.0)
[2020-10-16 17:17] LABS: Alternaria Alternata (M6) Ige <0.10 kU/L; Alternaria Class 0; Bermuda Class 0; Bermuda Grass (G2) Ige <0.10 kU/L; Cat Dander (E1) Ige <0.10 kU/L; Cat Dander Class 0; Common Ragweed (Short) (W1) Ig <0.10 kU/L; D. Farinae Class 0; Dermatophagoides Class 0; Dermatophagoides Farinae (D2) <0.10 kU/L; Dermatophagoides Pteronyssinus <0.10 kU/L; Dog Dander (E5) Ige <0.10 kU/L; Dog Dander Class 0; Elm (T8) Ige <0.10 kU/L; Elm Class 0; English Plantain (W9) Ige <0.10 kU/L; English Plantain Class 0; House Dust (Greer) (H1) Ige <0.10 kU/L; House Dust (Hollister- Stier) <0.10 kU/L; House Dust Class 0; Immunoglobulin E 19 kU/L (<OR=114); Immunoglobulin E 20 kU/L (<OR=114); Johnson Grass (G10) Ige <0.10 kU/L; Johnson Grass Cl 0; June Grass Class 0; June Grass(Kentucky Blue) (G8) <0.10 kU/L; Lamb'S Quarters (Goose Foot) <0.10 kU/L; Lamb'S Quarters Class 0; Maple (Box Elder) (T1) Ige <0.10 kU/L; Maple Class 0; Meadow Fescue (G4) Ige <0.10 kU/L; Meadow Fescue Class 0; Mucor Racemosus Class 0; Oak (T7) Ige <0.10 kU/L; Oak Class 0; Orchard Grass (Cocksfoot) (G3) <0.10 kU/L; Penicillium Class 0; Penicillium Notatum (M1) Ige <0.10 kU/L; Perennial Rye Grass (G5) Ige <0.10 kU/L; Perennial Rye Grass Class 0; Ragweeed Class 0; Rough Marsh Elder (W16) Ige <0.10 kU/L; Rough Marsh Elder Class 0; Sweet Vernal Class 0; Sweet Vernal Grass (G1) Ige <0.10 kU/L; Timothy Grass (G6) Ige <0.10 kU/L; Timothy Grass Class 0
[2020-10-19 18:54] LABS: Aspergillus Fumigatus, Igg Ab, 4.2 mg/L (<=102)
== END 2020-10-15 12:31 | disposition home or self-care (01) ==
LOC: LAB 12:37
PROVIDERS: PCP Nurse Practitioner Family; Visit Provider Internal Medicine Pulmonary Disease
DX: R06.02 Shortness of breath (principal); J44.9 Chronic obstructive pulmonary disease, unspecified; J45.909 Unspecified asthma, uncomplicated
CPT/HCPCS: 36415; 82785; 85025; 86003

== ENCOUNTER 2020-12-28 07:52 | Outpatient (CLI) | payer MEDICARE, OTHER, SELFPAY ==
--- NOTE | 2020-12-28 08:10 | MR_ITS ---
WS: [id number] MRI RIGHT SHOULDER HISTORY: INTERNAL DERANGEMENT OF RIGHT SHOULDER RIGHT SHOULDER INJURY COMPARISON: 02/13/2013 TECHNIQUE: Multiplanar sequences of the shoulder joint are submitted. Resection of the distal clavicle. Very slight acromial encroachment towards the rotator cuff. No high -grade encroachment. Single anchor is noted in the humeral head. Very tiny area of increased T2 signa l measuring 2 to 3 mm involving the insertion site of the supraspinatus tendon suspicious for tear. T here is no edema within the muscles of the rotator cuff. There is very slight chronic atrophy of the supraspinatus tendon. Mild narrowing of the glenohumeral joint. There is very mild loss of cartilage and degenerative changes over the glenoid and the humeral head. No significant amount of fluid in the subacromial or subdeltoid bursa or in the axillary pouch. Bicep s tendon remains in good position. No labral tear identified. MR/MR shoulder RT wo con* [id number] IMPRESSION: 1. Prior resection of the distal clavicle. 2. Very tiny insertion site tear of 2 to 3 mm suspected involving the supraspi natus. 3. Minimal chronic atrophy supraspinatus muscle. 4. Single tendon anchor noted within the humeral head from prior rotator cuff repair.
== END 2020-12-28 07:53 | disposition home or self-care (01) ==
PROVIDERS: PCP Nurse Practitioner Family; Visit Provider Nurse Practitioner Family
DX: M24.811 Other specific joint derangements of right shoulder, not elsewhere classified (principal); S49.91XA Unspecified injury of right shoulder and upper arm, initial encounter; X58.XXXA Exposure to other specified factors, initial encounter
CPT/HCPCS: 73221

== ENCOUNTER 2021-01-18 13:05 | Outpatient (CLI) | payer MEDICARE, OTHER, SELFPAY ==
--- NOTE | 2021-01-18 13:16 | XR_ITS ---
WS: [id number] Right hand, 3 views, 01/18/2021. Clinical Data: BILATERAL HAND SWELLING ; INFLAMMATORY ARTHRITIS Comparison: Right hand, 03/28/2017. Findings: No fractures or dislocations are seen. The soft tissues are unremarkable. There is osteoa rthritic change at the base of the right first metacarpal. 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
--- NOTE | 2021-01-18 13:16 | XR_ITS ---
WS: [id number] Left hand, 3 views, 01/18/2021 Clinical Data: BILATERAL HAND SWELLING ; INFLAMMATORY ARTHRITIS Comparison: Left wrist, 05/20/2023 Findings: No fractures or dislocations are seen. The soft tissues are unremarkable. The joint spaces are normal No periarticular demineralization or calcifications are seen. XR/XR hand LT min 3V* [id number] Impression: Negative left hand.
[2021-01-18 14:45] LABS: C Reactive Protein 10.7 mg/L (0.0-4.9)
[2021-01-18 15:06] LABS: Erythrocyte Sedimentation Rate 40 mm/hr (0-15)
[2021-01-19 10:47] LABS: Centromere B Antibody <1.0 NEG AI (<1.0 NEG); SS A Ro Sjogrens Antibody <1.0 NEG AI (<1.0 NEG); SS-B/LA IGG <1.0 NEG AI (<1.0 NEG); Sm/RNP Antibody <1.0 NEG AI (<1.0 NEG); Smith Antibody <1.0 NEG AI (<1.0 NEG)
[2021-01-19 13:37] LABS: Cyclic Citrullinated Peptide <16 UNITS
[2021-01-19 14:47] LABS: Anti-Nuclear Antibody Screen NEGATIVE (NEGATIVE)
[2021-01-19 15:53] LABS: Anti-Double Strand DNA AB <1 IU/mL
== END 2021-01-18 13:06 | disposition home or self-care (01) ==
PROVIDERS: PCP Nurse Practitioner Family; Visit Provider Internal Medicine Pulmonary Disease
DX: M79.89 Other specified soft tissue disorders (principal); M19.041 Primary osteoarthritis, right hand
CPT/HCPCS: 36415; 73130; 85651; 86038; 86140; 86225; 86235; 86431

== ENCOUNTER 2021-01-25 09:11 | Outpatient (CLI) | payer MEDICARE, OTHER, SELFPAY ==
--- NOTE | 2021-01-25 09:17 | MM_ITS ---
WS: [id number] Exam: [place] [id number] Date/Time of Exam: 01/25/2021 9:23 AM Reason For Exam: SCREENING VIEWS: MLO and CC views both breasts. Comparison made with prior exam of 02/27/2014. Findings: There was no sign of mass, architectural distortion or suspicious calcification in either breast. Fa tty MM/[place] [id number] Impression: BI-RADS: 2-Benign FOLLOW-UP: 1 Year Follow-up This mammogram was also analyzed by the Computer Aided Detection System R2 Imag e [employer] Expert.
== END 2021-01-25 09:12 | disposition home or self-care (01) ==
PROVIDERS: PCP Nurse Practitioner Family; Visit Provider Nurse Practitioner Family
DX: Z12.31 Encounter for screening mammogram for malignant neoplasm of breast (principal)
CPT/HCPCS: 77067

== ENCOUNTER 2021-01-30 12:08 | Emergency (ER) | payer MEDICARE, OTHER, SELFPAY ==
[2021-01-30] VITALS (38 sets, daily range): BP systolic 122–151; BP diastolic 58–102; PULSE 62–81; RESP 10–23; TEMP 36.8; O2SAT 91–98; BMI 34.3
--- NOTE | 2021-01-30 12:11 | ECG_ITS ---
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
--- NOTE | 2021-01-30 12:11 | XRR_ITS ---
PROCEDURE INFORMATION: Exam: XR Chest Exam date and time: 01/30/2021 12:11 PM Age: 60 years old Clinical indication: Chest wall pain. Chest pain. TECHNIQUE: Imaging protocol: XR of the chest. Views: 1 view. COMPARISON: CT chest con [id number] 09/04/2020 11:35 AM FINDINGS: Lungs: No pulmonary consolidation. Pleural spaces: No pleural effusion.; No pneumothorax. Heart/Mediastinum: Cardiac silhouette is unchanged. No gross evidence of pneumomediastinum. Bones/joints: No gross fracture. XR/XR chest 1V portable [id number] IMPRESSION: No acute cardiopulmonary abnormality identified.
--- NOTE | 2021-01-30 14:11 | ECG_ITS ---
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
--- NOTE | 2021-01-30 14:14 | ED_ITS ---
HPI - Chest Pain General: Chief Complaint: Chest Pain Stated Complaint: Chest Pain Time Seen by Provider: 01/30/21 13:35 History of Present Illness: HPI narrative: 60-year-old female comes in complaining of chest pain. She states she had chest pain that began while she was at rest morning she took nitro had some relief from it. 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 She tells me she has diastolic dysfunction but there is no confirmation of that either an echo or Lexiscan sestamibi test test that she had done in the last few years both site normal diastolic function. Discomforts not been particularly related to exertional activities. She denies any fever sweats chills or diarrhea she has not been vaccinated for Covid nor does she intend to be. MD complaint: chest pain Onset (ago): hour(s) Timing of current episode: episodic Prior episodes: Yes Onset: during rest Pain location: left chest Severity: moderate Quality: sharp Relieving factors: nitroglycerin Exacerbating factors: nothing Associated symptoms: Deny abdominal pain, diaphoresis, dyspnea, fever(s), leg edema, palpitations, sense of impending doom, syncope, vomiting or other Treatment prior to arrival: nitroglycerin Review of Systems Const: Denies: fever(s) or diaphoresis ENMT: Denies: throat pain, ear or mastoid pain, nasal discharge or nasal congestion Card: Denies: palpitations or syncope Resp: Denies: dyspnea GI: Denies: abdominal pain or vomiting : Denies: flank pain, difficulty voiding, dysuria, urinary frequency or urinary urgency Skin/Breast: Denies: rash or pruritus PFSH ED PFSH: Medical History Chest pain COPD (chronic obstructive pulmonary disease) GERD (gastroesophageal reflux disease) Hyperlipidemia PTSD (post-traumatic stress disorder) Type 2 diabetes mellitus, with long-term current use of insulin Surgical History H/O section History of mastoidectomy S/P appendectomy S/P cholecystectomy S/P hysterectomy S/P rotator cuff repair Family History Other Diabetes Heart disease Hypercholesterolemia Hypertension Osteoporosis Social History Smoking and tobacco status: current every day smoker cigarettes Packs smoked per day: 0.25 Years cigarettes smoked: 45 Quit status (tobacco): considering quitting Second hand smoke exposure: Yes Smoking risk assessment/counseling performed?: Yes Alcohol intake: never Lives independently: Yes Household members: spouse Housing: House Marital status: service: No Current occupational status: disabled Pets and animals: No History of recent travel: No Current gender identity: Female Physical Exam Const: COMMON NORMALS: no acute distress GENERAL APPEARANCE: cooperative and comfortable ORIENTATION/CONSCIOUSNESS: Yes awake, Yes oriented to person, Yes oriented to place and Yes oriented to time Neck/C-Spine: COMMON NORMALS: no JVD Lymph: LYMPHATIC: no lymphadenopathy noted and no lymphedema noted Resp: COMMON NORMALS: normal respiratory effort, No retractions, No use of accessory muscles and clear to auscultation bilaterally AUSCULTATION: clear to auscultation bilaterally Cardio: COMMON NORMALS: no JVD, regular rate, regular rhythm and No murmurs present (Cardio) RATE: regular rate RHYTHM: regular rhythm GI: COMMON NORMALS: Soft to palpation and No hepatosplenomegaly present AUSCULTATION: Yes normoactive bowel sounds PALPATION: Yes Soft to palpation, No Tenderness to palpation present (GI), No Guarding due to palpation present (GI) and Yes No hepatosplenomegaly present Extremity: COMMON NORMALS: normal to inspection, capillary refill normal, no clubbing, cyanosis or edema, no calf tenderness and no pedal edema Neuro: SENSORIUM/ORIENTATION: Yes oriented to person, Yes oriented to place and Yes oriented to time Skin: COMMON NORMALS: no rashes or lesions noted GENERAL SKIN EXAM: no rashes or lesions noted Course Vital Signs: Vital signs: Vital Signs Temperature 98.2 F 01/30/21 12:55 Pulse Rate 68 01/30/21 17:08 Respiratory Rate 18 01/30/21 17:08 Blood Pressure 133/78 01/30/21 17:08 Pulse Oximetry 95 01/30/21 17:08 MDM - Chest Pain MDM Narrative: Medical decision making narrative: Discharge home with increased pantoprazole add Carafate. Follow-up with EGD as an outpatient. Lab Data: Labs: Lab Results 01/30/21 01/30/21 01/30/21 Range/Units 13:50 13:50 13:50 WBC 11.6 H (4.0-10.0) 10^3/ uL RBC 5.18 (4.1-5.3) 10^6/u L Hgb 14.3 (11.5-15.3) g/dL Hct 44.5 (37.0-47.0) % MCV 85.9 (81-99) fL MCH 27.6 L (28.0-34.0) pg MCHC 32.1 (30.0-36.0) g/dL RDW 12.4 (12.1-15.1) % Plt Count 422 H (130-400) 10^3/c mm MPV 10.6 H (7.4-10.4) fL Neut % (Auto) 60.6 % Lymph % (Auto) 28.8 % Garland % (Auto) 6.5 % Eos % (Auto) 2.8 % Baso % (Auto) 0.9 % Neut # (Auto) 7.03 (1.8-7.7) 10^3/u L Lymph # (Auto) 3.4 (0.8-4.8) 10^3/u L Garland # (Auto) 0.8 (0.2-0.9) 10^3/u L Eos # (Auto) 0.3 (0.0-0.8) 10^3/u L Baso # (Auto) 0.1 (0.0-0.1) 10^3/u L Nucleated RBC % (a uto) 0 % Nucleated RBCs # 0.0 /100WBC D-Dimer (0-0.59) ug/mIFE U Sodium 135 L (136-145) mmol/L Potassium 4.8 (3.5-5.1) mmol/L Chloride 98 (98-107) mmol/L Carbon Dioxide 25 (22-29) mmol/L Anion Gap 16.8 (5-19) BUN 11 (6-20) mg/dL Creatinine 0.6 (0.5-0.9) mg/dL GFR Calculation 102.7 (90-130) mL/min Glucose 315 H (65-115) mg/dL Calculated Osmolal ity 291 (285-295) mOsm/k g Calcium 9.2 (8.5-10.5) mg/dL Total Bilirubin 0.2 (0.15-1.2) mg/dL AST 10 (0-32) U/L ALT 9 (0-33) U/L Alkaline Phosphata se 163 H (35-105) IU/L Troponin T Baselin e 6 (0-10) ng/L Troponin T 120 Min [place] (0-10) ng/L Delta Troponin T (0-10) ABS# NT-Pro-B Natriuret Pep 153 H (0-125) pg/mL Total Protein 6.9 (6.6-8.7) g/dL Albumin 4.4 (3.5-5.2) g/dL Globulin 2.5 (1.3-4.6) g/dL 01/30/21 01/30/21 Range/Units 16:02 16:02 WBC (4.0-10.0) 10^3/ uL RBC (4.1-5.3) 10^6/u L Hgb (11.5-15.3) g/dL Hct (37.0-47.0) % MCV (81-99) fL MCH (28.0-34.0) pg MCHC (30.0-36.0) g/dL RDW (12.1-15.1) % Plt Count (130-400) 10^3/c mm MPV (7.4-10.4) fL Neut % (Auto) % Lymph % (Auto) % Garland % (Auto) % Eos % (Auto) % Baso % (Auto) % Neut # (Auto) (1.8-7.7) 10^3/u L Lymph # (Auto) (0.8-4.8) 10^3/u L Garland # (Auto) (0.2-0.9) 10^3/u L Eos # (Auto) (0.0-0.8) 10^3/u L Baso # (Auto) (0.0-0.1) 10^3/u L Nucleated RBC % (a uto) % Nucleated RBCs # /100WBC D-Dimer <= 0.27 (0-0.59) ug/mIFE U Sodium (136-145) mmol/L Potassium (3.5-5.1) mmol/L Chloride (98-107) mmol/L Carbon Dioxide (22-29) mmol/L Anion Gap (5-19) BUN (6-20) mg/dL Creatinine (0.5-0.9) mg/dL GFR Calculation (90-130) mL/min Glucose (65-115) mg/dL Calculated Osmolal ity (285-295) mOsm/k g Calcium (8.5-10.5) mg/dL Total Bilirubin (0.15-1.2) mg/dL AST (0-32) U/L ALT (0-33) U/L Alkaline Phosphata se (35-105) IU/L Troponin T Baselin e (0-10) ng/L Troponin T 120 Min [place] 6.00 (0-10) ng/L Delta Troponin T 0 (0-10) ABS# NT-Pro-B Natriuret Pep (0-125) pg/mL Total Protein (6.6-8.7) g/dL Albumin (3.5-5.2) g/dL Globulin (1.3-4.6) g/dL Discharge Plan Discharge Patient Disposition: Home Clinical Impression: GERD (gastroesophageal reflux disease), Chest pain due to gastrointestinal reflux disease Condition: Stable Prescriptions: New pantoprazole 40 mg tablet,delayed release (DR/EC) 40 mg PO BID 30 Days Qty: 60 RF: 0 Carafate 1 gram tablet 1 g PO Q6H PRN (Reason: heartburn) 14 Days Qty: 56 RF: 0 No Action Lantus Solostar U-100 Insulin 100 unit/mL (3 mL) insulin pen 25 unit SUBCUT BID RF: 0 coenzyme Q10 [Co Q-10] 400 mg capsule 400 mg PO BEDTIME RF: 0 cholecalciferol (vitamin D3) 25 mcg (1,000 unit) capsule 25 mcg PO BEDTIME RF: 0 montelukast [Singulair] 10 mg tablet 10 mg PO DAILY Qty: 30 RF: 3 Nitrostat 0.4 mg tablet, sublingual 0.4 mg SUBLINGUAL Q5M PRN (Reason: chest pain) Qty: 25 RF: 4 Spiriva Respimat 2.5 mcg/actuation mist 2 puff inhalation DAILY Qty: 4 RF: 3 isosorbide mononitrate 30 mg tablet extended release 24 hr 45 mg PO BID Qty: 270 RF: 3 albuterol sulfate [Proventil HFA] 90 mcg/actuation HFA aerosol inhaler 2 puff inhalation Q6H PRN (Reason: shortness of breath or wheezing) Qty: 8.5 RF: 3 Protonix 40 mg tablet,delayed release (DR/EC) 40 mg PO BID Qty: 180 RF: 1 gemfibrozil 600 mg tablet 600 mg PO BID 90 Days Qty: 60 RF: 0 prazosin 1 mg capsule 1 mg PO QPM Qty: 30 RF: 0 Seroquel 25 mg tablet 25 mg PO BEDTIME Qty: 30 RF: 0 diphenhydramine HCl [Benadryl Allergy] 25 mg Tablet 25 mg PO BEDTIME RF: 0 sennosides-docusate sodium [Stool Softener-Laxative] 8.6-50 mg Tablet 1 tab-cap PO BEDTIME PRN (Reason: Constipation) RF: 0 aspirin 81 mg Tablet,Delayed Release (Dr/Ec) 81 mg PO BEDTIME RF: 0 hydrocodone-acetaminophen 7.5-325 mg Tablet 1 tab PO QID PRN (Reason: Pain) RF: 0 furosemide [Lasix] 20 mg Tablet 20 mg PO DAILY PRN (Reason: Edema) RF: 0 loratadine [Claritin] 10 mg Tablet 10 mg PO DAILY RF: 0 magnesium oxide 400 mg magnesium Tablet 400 mg PO BEDTIME RF: 0 Women's 50 Plus Multivitamin 1 tab 1 tab PO BEDTIME RF: 0 potassium gluconate 595 mg (99 mg) tablet 595 mg PO DAILY PRN (Reason: unknown) RF: 0 atorvastatin 40 mg Tablet 40 mg PO BEDTIME RF: 0 methocarbamol 500 mg tablet 500 mg PO BID PRN (Reason: Muscle Spasm) RF: 0 citalopram 20 mg tablet See Rx Instructions .ROUTE .COMPLEX RF: 0 Novolin R Flexpen 100 unit/mL (3 mL) insulin pen See Rx Instructions .ROUTE .COMPLEX RF: 0 Discharge Orders: Discharge ED (Routine); Ordered 01/30/21 Ordered By: Delmar Caro Referrals: Mendoza,Bethany, CUSTOMER RELATIONS ASSISTANT [Primary Care Provider] - Patient Instructions: Opioid Safety Coding Level of Care Code ED Yarn Washer for Chg Fwd Exam Comprehensive
[2021-01-30 14:16] LABS: Basophils # 0.1 10^3/uL (0.0-0.1); Basophils % 0.9 %; Eosinophils # 0.3 10^3/uL (0.0-0.8); Eosinophils % 2.8 %; Hematocrit 44.5 % (37.0-47.0); Hemoglobin 14.3 g/dL (11.5-15.3); Lymphocytes # 3.4 10^3/uL (0.8-4.8); Lymphocytes % 28.8 %; Mean Corpuscular HGB Conc 32.1 g/dL (30.0-36.0); Mean Corpuscular Hemoglobin 27.6 pg (28.0-34.0); Mean Corpuscular Volume 85.9 fL (81-99); Mean Platelet Volume 10.6 fL (7.4-10.4); Monocytes # 0.8 10^3/uL (0.2-0.9); Monocytes % 6.5 %; Neutrophils # 7.03 10^3/uL (1.8-7.7); Neutrophils % 60.6 %; Nucleated Red Blood Cells % 0 %; Platelet Count 422 10^3/cmm (130-400); Red Blood Count 5.18 10^6/uL (4.1-5.3); Red Cell Distribution Width 12.4 % (12.1-15.1); White Blood Count 11.6 10^3/uL (4.0-10.0)
[2021-01-30] MEDS: lidocaine 2% viscous 15 ML, aluminum-mag hydrox-simethicon 30 ML, sucralfate oral liq 1 GM PO (14:24)
[2021-01-30 14:40] LABS: Troponin(5th) Baseline 6 ng/L (0-10)
[2021-01-30 14:48] LABS: Alanine Aminotransferase 9 U/L (0-33); Albumin Level 4.4 g/dL (3.5-5.2); Alkaline Phosphatase 163 IU/L (35-105); Anion Gap 16.8 (5-19); Aspartate Amino Transferase 10 U/L (0-32); Blood Urea Nitrogen 11 mg/dL (6-20); Calcium 9.2 mg/dL (8.5-10.5); Carbon Dioxide 25 mmol/L (22-29); Chloride 98 mmol/L (98-107); Creatinine Clr Calc Pharmacy 111.4993; Globulin 2.5 g/dL (1.3-4.6); Glomerular Filtration Rate 102.7 mL/min (90-130); Glucose 315 mg/dL (65-115); NT Pro B Type Natriuretic Pept 153 pg/mL (0-125); Osmolality Calculated 291 mOsm/kg (285-295); Potassium 4.8 mmol/L (3.5-5.1); Sodium 135 mmol/L (136-145); Total Bilirubin 0.2 mg/dL (0.15-1.2); Total Protein 6.9 g/dL (6.6-8.7)
[2021-01-30 16:33] LABS: D Dimer <= 0.27 ug/mIFEU (0-0.59)
[2021-01-30 16:36] LABS: Troponin 5 2HR Delta 0 ABS# (0-10)
--- NOTE | 2021-02-01 15:51 | DCPLANNER ---
Addendum entered by Denice Gonzalez 02/03/21 14:26: regional training manager was contacted by general surgery and told that when clinic called patient, that patient wants to follow up with primary care before being seen at general surgery. Patient declined appointment at this time. Original Note: regional training manager had message to schedule a follow up appointment for patient with general surgery for severe reflux needs an EGD. regional training manager emailed patients information to both Myranda and Kandy at [facility] General Surgery. Patients information will be printed and reviewed. Clinic will call patient with appointment information.
== END 2021-01-30 17:11 | disposition home or self-care (01) ==
PROVIDERS: Physician Assistant; Emergency Provider Family Medicine; PCP Nurse Practitioner Family
DX: K21.9 Gastro-esophageal reflux disease without esophagitis (principal); J44.9 Chronic obstructive pulmonary disease, unspecified; E78.5 Hyperlipidemia, unspecified; E11.9 Type 2 diabetes mellitus without complications; F17.210 Nicotine dependence, cigarettes, uncomplicated; Z79.4 Long term (current) use of insulin
CPT/HCPCS: 71045; 80053; 83880; 84484; 85025; 85378; 93005; 99284

== ENCOUNTER 2021-02-10 07:41 | Outpatient (RCR) | payer MEDICARE, OTHER, SELFPAY | END 2021-03-02 23:59 | disposition home or self-care (01) | LOC: SPT 07:41 | PROVIDERS: PCP Nurse Practitioner Family; Referring Provider Physician Assistant Surgical; Visit Provider Physician Assistant Surgical | DX: M25.511 Pain in right shoulder (principal) | CPT/HCPCS: 97110; 97162 ==

== ENCOUNTER 2021-03-03 06:00 | Outpatient (RCR) | payer MEDICARE, OTHER, SELFPAY | END 2021-04-01 23:59 | disposition home or self-care (01) | LOC: SPT 06:00 | PROVIDERS: PCP Nurse Practitioner Family; Referring Provider Physician Assistant Surgical; Visit Provider Physician Assistant Surgical | DX: M25.511 Pain in right shoulder (principal) | CPT/HCPCS: 97110 ==

== ENCOUNTER 2021-05-05 15:19 | Inpatient (IN) | payer MEDICARE, OTHER, SELFPAY ==
[2021-05-05] VITALS (9 sets, daily range): BP systolic 136–151; BP diastolic 82–88; PULSE 66–75; RESP 15–20; TEMP 36.2–36.8; O2SAT 92–96; BMI 35.2
--- NOTE | 2021-05-05 15:53 | PC.NURSE ---
With pt to bathroom and collected a urine.
[2021-05-05 16:30] LABS: Glucose Point of Care 193 mg/dL (70-110)
--- NOTE | 2021-05-05 16:31 | W.ED.GENADLT ---
HPI - General Adult General: Chief complaint: Psychiatric Symptoms Stated complaint: SI/OD on insulin Time Seen by Provider: 05/05/21 16:02 History of Present Illness: HPI narrative: HPI: [61]yo patient w/ hx of DM on SSI/lantus depression BIBA foracute suicide attempt after ingesting an unknown quality of regular insulin. EMS was alerted and patient had a glucose of 55 that improved after 1am of D50. On arrival, the patient is AAOx3 and cooperative with my evaluation. No focal complaints of chest pain, shortness of breath, palpitations, N/V, focal GI/ complaints. Continues to endorse SI. No HX or active hallucinations. No complaints of fatigue. Onset: 1 day Duration: ongoing Location: home Severity: severe Review of Systems Narrative: Constitutional: No fever, no chills. HEENT: No vision changes CV: No chest pain, no palpitations PULM: No productive cough, no dyspnea. GI: No abdominal pain, no N/V/D. : No dysuria MSKEL: No muscle pain SKIN: No new rashes, no lesions. NEURO: No headache, no focal weakness. HEME: No visible bruises PSYCH: +depressed mood, SI PFSH ED PFSH: Medical History Chest pain COPD (chronic obstructive pulmonary disease) GERD (gastroesophageal reflux disease) Hyperlipidemia PTSD (post-traumatic stress disorder) Type 2 diabetes mellitus, with long-term current use of insulin Surgical History H/O section History of mastoidectomy S/P appendectomy S/P cholecystectomy S/P hysterectomy S/P rotator cuff repair Family History Other Diabetes Heart disease Hypercholesterolemia Hypertension Osteoporosis Social History Quit status (tobacco): considering quitting Second hand smoke exposure: Yes Smoking risk assessment/counseling performed?: Yes Alcohol intake: never Lives independently: Yes Household members: spouse Housing: House Marital status: service: No Current occupational status: disabled Pets and animals: No History of recent travel: No Current gender identity: Female Physical Exam Narrative: EXAM NARRATIVE: Head: Atraumatic Eyes: PERRL, conjunctiva without injection, eyes tracking ENT: Mucous membrane moist NECK: Supple without lymphadenopathy LUNGS: LCTAB CV: RRR ABDOMEN: Soft, nontender EXTREMITY: Normal ROM SKIN: No rash or erythema NEURO: Awake and alert. No focal weakness PSYCH: Cooperative mood and affect. Course Vital Signs: Vital signs: Vital Signs Temperature 98.3 F 05/05/21 15:24 Pulse Rate 69 05/05/21 15:24 Respiratory Rate 15 05/05/21 15:24 Blood Pressure 136/82 05/05/21 15:24 Pulse Oximetry 95 05/05/21 15:24 MDM - General Adult MDM Narrative: Medical decision making narrative: [61]yo patient w/ hx of DM on insulin and depression presenting for acute SI after ingesting unknown quantities of regular insulin at noon. HDS, exam within normal limit Thoughts are linear and organized, and the patient has no AH/VH, or HI. Clinically the patient displays no overt toxidrome; they are well appearing, with low suspicion for toxic ingestion given history and exam. Symptoms unlikely 2/2 anemia, hypothyroidism, infection, or ICH. Workup: CBC, CMP, Lipase, salicylate/tylenol, UDS Lab findings: wnl [5:30pm] On reassessment, labs and workup wnl. Patient is hemodynamically stable with no acute medical complaints. No signs of hypoglycemia. Patient observed for 6 hrs. Case discussed with psychiatric provider Dr. Coffman at [facility] psych inpatient with recommendation for admission Disposition: Psych Lab Data: Labs: Lab Results 05/05/21 16:28 POC Glucose 193 mg/dL H mg/dL (70-110) Discharge Plan Discharge Patient Disposition: Admitted As Inpatient Clinical Impression: Suicide attempt, Suicide ideation Condition: Stable Coding Level of Care Code ED Superintendent Service for Nancy Hayward
[2021-05-05 16:42] LABS: Basophils # 0.1 10^3/uL (0.0-0.1); Basophils % 0.6 %; Eosinophils # 0.2 10^3/uL (0.0-0.8); Eosinophils % 1.5 %; Hematocrit 43.3 % (37.0-47.0); Hemoglobin 13.9 g/dL (11.5-15.3); Lymphocytes # 2.2 10^3/uL (0.8-4.8); Lymphocytes % 20.8 %; Mean Corpuscular HGB Conc 32.1 g/dL (30.0-36.0); Mean Corpuscular Hemoglobin 28.4 pg (28.0-34.0); Mean Corpuscular Volume 88.4 fl (81-99); Mean Platelet Volume 10.7 fL (7.4-10.4); Monocytes # 0.7 10^3/uL (0.2-0.9); Monocytes % 6.5 %; Neutrophils # 7.41 10^3/uL (1.8-7.7); Neutrophils % 70.2 %; Nucleated Red Blood Cells % 0 %; Platelet Count 397 10^3/cmm (130-400); Red Cell Distribution Width 12.7 % (12.1-15.1); White Blood Count 10.6 10^3/uL (4.0-10.0)
[2021-05-05 17:04] LABS: Amphetamines Screen Urine Negative (Negative); Barbiturates Screen Urine Negative (Negative); Benzodiazepines Screen Urine Negative (Negative); Cocaine Screen Urine Negative (Negative); Opiate Screen Urine Positive (Negative); PCP Screen Urine Negative (Negative); THC Screen Urine Negative (Negative)
[2021-05-05 17:05] LABS: Anion Gap 14.4 (5-19); Blood Urea Nitrogen 6 mg/dL (6-20); Calcium 8.9 mg/dL (8.5-10.5); Carbon Dioxide 27 mmol/L (22-29); Chloride 102 mmol/L (98-107); Glomerular Filtration Rate 126.3 mL/min (90-130); Glucose 194 mg/dL (65-115); Osmolality Calculated 293 mOsm/kg (285-295); Potassium 3.4 mmol/L (3.5-5.1); Sodium 140 mmol/L (136-145)
[2021-05-05 17:07] LABS: Acetaminophen < 5.0 ug/mL (10-30); Salicylate < 0.3 mg/dL (3-10)
--- NOTE | 2021-05-05 17:27 | PM.CONSULT ---
Providers/Reason For Consult Consulting Physician/Specialty*: Hospitalist service Reason for Consult*: Suicidal attempt, regular insulin injected Primary Care Provider: STEPAN Smith History of Present Illness History of Present Illness Marcy Marina is a 61 year old female presented to the hospital with suicidal attempt. She will be admitted to neuropsychiatric unit. Hospital service is consulted for management of her blood sugar. Patient is stating that she took insulin to end her life. She took regular insulin. She is not sure about the units she injected, she just opened the insulin pen and injected herself. She did not lose consciousness. After taking the insulin she was experiencing lightheadedness, numbness and tingling all over her body. She is also experiencing headache which she describing as throbbing 6?10. She gets migraine headaches. She is denying fever, nausea, vomiting, chest pain, shortness of breath. She has history of back pain secondary to spinal stenosis. She is attributing today's event to her social dynamics/stressors. She is taking care of her , daughter and 2 grandchildren. When I saw her she was in neuropsychiatric unit, in the ER her blood sugar was around 90 mg, she was able to remember mention details, no diaphoresis, nausea, vomiting or confusion noted. Review of Systems Const: Reports: chills and change in weight; Denies: fever(s) Eyes: Denies: change in vision ENMT: Denies: throat pain Card: Denies: chest pain Resp: Denies: dyspnea GI: Denies: abdominal pain : Denies: flank pain Musc: Reports: back pain; Denies: neck pain Skin/Breast: Denies: rash Neuro: Reports: headache(s) Psych: Reports: depression, mood swings and suicidal ideation Endo: Denies: polyuria Shaan/Lymph: Denies: easy bruising All/Imm: Denies: urticaria Meds/Allergies Home Medications and Allergies Home Medications Medication Instructions Recorded Confirmed Last Taken Type Women's 50 Plus Multivitamin 1 tab PO BEDTIME 07/08/19 04/16/21 02/24/20 History aspirin 81 mg PO BEDTIME 07/08/19 04/16/21 01/29/21 History furosemide [Lasix] 20 mg PO DAILY PRN 07/08/19 04/16/21 Unknown History hydrocodone-acetaminophen 1 tab PO QID PRN 07/08/19 04/16/21 01/29/21 History loratadine [Claritin] 10 mg PO DAILY 07/08/19 04/16/21 02/25/20 History magnesium oxide 400 mg PO BEDTIME 07/08/19 04/16/21 01/29/21 History sennosides-docusate sodium [Stool 1 tab-cap PO BEDTIME PRN 07/08/19 04/16/21 Unknown History Softener-Laxative] potassium gluconate 595 mg (99 mg) 595 mg PO DAILY PRN 01/08/20 04/16/21 Unknown History tablet nitroglycerin 0.4 mg sublingual 0.4 mg SUBLINGUAL Q5M PRN #25 tab 01/13/20 04/16/21 01/30/21 12:19 Rx tablet 4 TABS diphenhydramine HCl [Benadryl 25 mg PO BEDTIME 02/25/20 04/16/21 01/29/21 History Allergy] coenzyme Q10 400 mg capsule 400 mg PO BEDTIME 07/17/20 04/16/21 01/29/21 History insulin glargine 100 unit/mL (3 25 unit SUBCUT BID ml 07/17/20 04/16/21 01/29/21 History mL) subcutaneous pen cholecalciferol (vitamin D3) 25 25 mcg PO BEDTIME 09/03/20 04/16/21 01/29/21 History mcg (1,000 unit) capsule albuterol sulfate 90 mcg/actuation 2 puff INHALATION Q6H PRN #8.5 g 11/02/20 04/16/21 Unknown Rx aerosol inhaler gemfibrozil 600 mg tablet 600 mg PO BID 90 Days #60 tab 11/02/20 04/16/21 01/29/21 Rx pantoprazole 40 mg tablet,delayed 40 mg PO BID #180 tab 11/02/20 04/16/21 01/29/21 Rx release prazosin 1 mg capsule 1 mg PO QPM #30 cap 11/02/20 01/30/21 Unknown Rx quetiapine 25 mg tablet 25 mg PO BEDTIME #30 tab 11/02/20 04/16/21 Unknown Rx tiotropium bromide 2.5 2 puff INHALATION DAILY #4 g 01/14/21 01/30/21 Unknown Rx mcg/actuation mist for inhalation atorvastatin 40 mg PO BEDTIME 01/30/21 04/16/21 01/29/21 History citalopram See Rx Instructions .ROUTE .COMPLEX 01/30/21 04/16/21 01/29/21 History 10 MG insulin regular human [Novolin R See Rx Instructions .ROUTE .COMPLEX 01/30/21 04/16/21 Unknown History Flexpen] methocarbamol 500 mg PO BID PRN 01/30/21 04/16/21 Unknown History isosorbide mononitrate 30 mg 45 mg PO BID #270 tab 03/24/21 04/16/21 Unknown Rx tablet,extended release 24 hr montelukast 10 mg tablet 10 mg PO DAILY #30 tab 04/16/21 Unknown Rx Allergies Allergy/AdvReac Type Severity Reaction Status Date / Time chlorpheniramine Allergy ALGY-Anaphy Verified 04/16/21 08:56 [From Tussionex] laxis clavulanic acid Allergy ADR-Vomitin Verified 04/16/21 08:56 g erythromycin base Allergy ALGY-Hives Verified 04/16/21 08:56 lisinopril Allergy ADR-Cough Verified 04/16/21 08:56 metformin Allergy ADR-Diarrhe Verified 04/16/21 08:56 a morphine Allergy ALGY-Swell Verified 04/16/21 08:56 Lip/Tongue/Throat omeprazole [From Prilosec] Allergy ADR-Itching Verified 04/16/21 08:56 ondansetron [From Zofran] Allergy ALGY-Anaphy Verified 04/16/21 08:56 laxis Sulfa (Sulfonamide Allergy ALGY-Hives Verified 04/16/21 08:56 Antibiotics) tramadol Allergy ADR-Halluci Verified 04/16/21 08:56 nating PFSH Acute PFSH: Medical History (Updated 05/05/21 @ 19:08 by Radha Corley MD) Asthma Bilateral hand swelling Chest pain COPD (chronic obstructive pulmonary disease) Diastolic dysfunction Encounter for smoking cessation counseling GERD (gastroesophageal reflux disease) Hyperlipidemia Nicotine dependence, cigarettes, with unspecified nicotine-induced disorders PTSD (post-traumatic stress disorder) Torn rotator cuff Type 2 diabetes mellitus, with long-term current use of insulin Surgical History (Updated 05/05/21 @ 19:06 by Radha Corley MD) H/O section History of mastoidectomy History of parotid gland removal S/P appendectomy S/P cholecystectomy S/P hysterectomy S/P rotator cuff repair Family History Other Diabetes Heart disease Hypercholesterolemia Hypertension Osteoporosis Social History Quit status (tobacco): considering quitting Second hand smoke exposure: Yes Smoking risk assessment/counseling performed?: Yes Alcohol intake: never Lives independently: Yes Household members: spouse Housing: House Marital status: service: No Current occupational status: disabled Pets and animals: No History of recent travel: No Current gender identity: Female Vitals/I&O/Wt Last Vital Signs Temp 98.3 F 05/05/21 15:24 Pulse 68 05/05/21 17:25 Resp 16 05/05/21 17:25 BP 151/88 05/05/21 17:01 Pulse Ox 92 05/05/21 17:25 Weight last 48 hrs Weight 92.986 kg Physical Exam Narrative: EXAM NARRATIVE: elderly female Emotionally labile Not making eye contact No signs of confusion EOMI, PERRLA Nonfocal neuro exam Sitting on the bench S1, S2 No audible stridor or wheezing Nonpitting edema of legs Obesity Visceral obesity A&P Assessment and plan (1) Suicide attempt: Status: Acute (2) Hypokalemia: Status: Acute Additional A&P Information Suicide attempt Patient took regular insulin at home Regular insulin half-life is above 6 to 8 hours At baseline she takes Lantus 25 units twice daily and moderate dose sliding scale We will check hemoglobin A1c level Current blood sugar 190 mg in the ER Accu-Cheks every 1 hour for next 4 hours, if stays above 180 can do Accu-Cheks every 4 hours No active signs or symptoms of hypoglycemia 96-hour hold in n.p.o. We will follow along with Dr. Coffman Hypokalemia: Potassium repleted Full code Consistent carb diet DVT prophylaxis Lovenox Consult Attestations Medical Necessity Statement: As per Neuropsych Unit Time Spent in Patient Care: Greater than 35 minutes Coding Level of Care Code Acute Automobile Service Station Attendant for Chg Fwd Diagnoses Suicide attempt T14.91XA Hypokalemia E87.6
[2021-05-05 17:46] LABS: Glucose Point of Care 191 mg/dL (70-110)
--- NOTE | 2021-05-05 17:52 | PC.NURSE ---
Son took pt's monitor for Diabetes, shirt, pants, slippers, wedding rink. Pt keep glasses
[2021-05-05 19:06] LABS: Glucose Point of Care 198 mg/dL (70-110)
[2021-05-05] MEDS: acetaminophen 325 mg Tablet 650 MG PO (20:26)
[2021-05-05] MEDS: SUMAtriptan 25 mg Tablet PO (20:26)
[2021-05-05] MEDS: potassium chloride ER 20 mEq Tablet 40 MEQ PO (20:27)
[2021-05-05] MEDS: insulin lispro 100 unit/1 mL SUBCUT (20:35)
[2021-05-06 02:30] LABS: Glucose Point of Care 65 mg/dL (70-110)
[2021-05-06 03:16] LABS: Estmated Average Glucose 194; Hemoglobin A1C 8.4 % (4.0-6.0)
--- NOTE | 2021-05-06 04:53 | PC.NURSE ---
Upon assessment patient at Nurse's desk. Patient alert/tearful, oriented x4. Patient has fair eye contact. Patient rates her depression 10, anxiety 10. Denies any SI at this time. She does c/o headache and back ache and is wanting her pain meds . Patient is still needing H & P. Will continue to monitor and follow plan of care. Q 15 min safety checks per protocol.
[2021-05-06 06:00] VITALS: BP 143/75; BP 145/83; PULSE 75; RESP 16; RESP 20; TEMP 36.2; O2SAT 94
[2021-05-06] MEDS: FUROsemide 20 mg Tablet PO (08:56)
[2021-05-06] MEDS: acetaminophen 325 mg Tablet 650 MG PO ×2 (08:56→18:41)
[2021-05-06] MEDS: potassium chloride ER 20 mEq Tablet PO (08:57)
[2021-05-06 09:02] LABS: Glucose Point of Care 357 mg/dL (70-110)
[2021-05-06] MEDS: insulin glargine 100 units/1 mL 10 UNIT SUBCUT (10:30)
[2021-05-06] MEDS: insulin lispro 100 unit/1 mL SUBCUT ×3 (10:31→23:19)
[2021-05-06 11:29] LABS: Glucose Point of Care 359 mg/dL (70-110)
--- NOTE | 2021-05-06 12:13 | NPU.GN ---
[facility] NeuroPsych Unit Group Topic:Meditation/ Depression Bingo General Mood of Group: Marcy did attend and participate in group today. Marcy did great socializing with others in group and enjoyed the meditation and depression bingo. CSS aided client in discussing [facility] services and client is wanted services. This ad copy writer aided patient in completing the intake packet for services. [facility] intake packet complete.
[2021-05-06 13:12] LABS: Glucose Point of Care 297 mg/dL (70-110)
[2021-05-06] MEDS: methocarbamol 500 mg Tablet PO (14:15)
[2021-05-06] MEDS: HYDROcodone-acetaminophen 7.5-325 mg Tablet 1 TAB PO ×2 (14:15→20:07)
[2021-05-06 14:24] LABS: Glucose Point of Care 189 mg/dL (70-110)
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
[2021-05-06 16:52] LABS: Glucose Point of Care 102 mg/dL (70-110)
[2021-05-06 17:00] VITALS: BP 134/74; PULSE 76; RESP 20; TEMP 36.4; O2SAT 94
[2021-05-06] MEDS: insulin glargine 100 units/1 mL 25 UNIT SUBCUT (18:42)
[2021-05-06] MEDS: trazodone 50 mg Tablet PO (20:09)
[2021-05-06 21:45] VITALS: RESP 17
[2021-05-06 23:08] LABS: Glucose Point of Care 403 mg/dL (70-110)
[2021-05-07 00:42] LABS: Glucose Point of Care 405 mg/dL (70-110)
[2021-05-07 00:46] LABS: Glucose Point of Care 356 mg/dL (70-110)
[2021-05-07 01:32] LABS: Glucose Point of Care 274 mg/dL (70-110)
[2021-05-07] MEDS: HYDROcodone-acetaminophen 7.5-325 mg Tablet 1 TAB PO ×4 (02:09→19:24)
[2021-05-07 05:19] LABS: Glucose Point of Care 138 mg/dL (70-110)
[2021-05-07 07:16] LABS: Glucose Point of Care 164 mg/dL (70-110)
[2021-05-07] MEDS: fixodent 39 gm Tube 1 APPLIC DENTAL ×2 (07:52→18:18)
[2021-05-07] MEDS: insulin glargine 100 units/1 mL 25 UNIT SUBCUT (09:08)
[2021-05-07] MEDS: insulin lispro 100 unit/1 mL SUBCUT ×3 (09:08→18:18)
[2021-05-07 10:05] LABS: Glucose Point of Care 286 mg/dL (70-110)
[2021-05-07] MEDS: pantoprazole DR 40 mg Tablet PO ×2 (10:17→18:18)
[2021-05-07] MEDS: promethazine 25 mg Tablet 12.5 MG PO (10:17)
[2021-05-07 14:00] VITALS: BP 105/58; PULSE 72; RESP 18; TEMP 36.7; O2SAT 93
--- NOTE | 2021-05-07 14:04 | NPU.GN ---
[facility] Group Topic:Ramon Breaker Psych Education General Mood of Group: Marcy did attend group and participated. Marcy was social and seemed to be in good mindset . Patient misses being home.
[2021-05-07 14:29] LABS: Glucose Point of Care 316 mg/dL (70-110)
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
[2021-05-07 17:07] LABS: Glucose Point of Care 202 mg/dL (70-110)
[2021-05-07] MEDS: OLANZapine 5 mg ODT PO (19:24)
--- NOTE | 2021-05-07 19:26 | PC.NURSE ---
Med refusal Pt refused to take 30units of Lantus, pt stated that the Doctor is stupid and doesn't listen to her and what med routine she is on at home. Nurse explained that this dose would help keep it under control throughout the night. Pt refused to take the dose.
[2021-05-07] MEDS: methocarbamol 500 mg Tablet PO (19:58)
[2021-05-07 20:47] LABS: Glucose Point of Care 126 mg/dL (70-110)
[2021-05-07 22:00] VITALS: BP 131/65; PULSE 67; RESP 18; TEMP 36.6; O2SAT 96
[2021-05-07 22:34] LABS: Glucose Point of Care 124 mg/dL (70-110)
[2021-05-08] MEDS: HYDROcodone-acetaminophen 7.5-325 mg Tablet 1 TAB PO ×4 (01:38→18:45)
[2021-05-08 01:43] LABS: Glucose Point of Care 169 mg/dL (70-110)
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
[2021-05-08 06:00] VITALS: BP 126/81; PULSE 78; RESP 18; TEMP 36.7; O2SAT 98
[2021-05-08] MEDS: methocarbamol 500 mg Tablet PO ×2 (07:56→18:46)
[2021-05-08] MEDS: pantoprazole DR 40 mg Tablet PO ×2 (07:56→18:45)
--- NOTE | 2021-05-08 09:47 | P.NPUPN_ITS ---
Subjective NPU Subjective: Interval history: Patient presents today reporting that she did have conversation with her son and did take her off of the do not contact list. She reports that she said he could visit as long as he did not bring her daughter. She reports that there has been a conversation about him doing couples or marital therapy. She reports he is gotten some movement in conversations with the hospitalist to help manage her blood sugar better while she is here. We discussed a possible discharge date on Monday. Mental Status Exam MSE Comments: This is an obese, white female, in hospital scrubs, with limited grooming, and eye contact. No abnormal movements. Cooperative with exam in no acute distress. Speech was more normal rate and volume. Mood described as a little better; affect subdued and less tearful. Thought process, organized. Thought content: patient denied any suicidal or homicidal ideation, there were no delusions reported or noted, patient denied any auditory or visual hallucinations. Attention, concentration, and memory appear intact but were not formally tested. He is alert and oriented times three. Insight and judgment are limited, and impulse control is limited. Vitals/I&O/Wt Last Vital Signs Temp 98.0 F 05/08/21 06:00 Pulse 78 05/08/21 06:00 Resp 18 05/08/21 06:00 BP 126/81 05/08/21 06:00 Pulse Ox 98 05/08/21 06:00 Data NPU : 05/05/21 15:31 05/05/21 15:31 A&P Additional A&P Information (1) Hypokalemia: (2) Suicide attempt: (3) Suicide ideation: (4) COPD (chronic obstructive pulmonary disease): (5) PTSD (post-traumatic stress disorder): (6) Type 2 diabetes mellitus, with long-term current use of insulin: (7) GERD (gastroesophageal reflux disease): (8) Hyperlipidemia: (9) Chest pain: (10) Major depressive disorder, recurrent: Additional A&P Information This is a 61-year-old, white female, with a long history of depression and multiple medical comorbidities, a reported history of post-traumatic stress disorder, which she did not go into, the details or causes, who presents open to some medication changes after a suicide attempt by insulin overdose. RECOMMENDATION AND PLAN: 1. Continue current medications. 2. Encourage individual, group, and milieu therapy. 3. Continue q-15 minute checks for safety. Involuntary Hold Information 96 Hour Hold: 96 Hour Involuntary Admission: No Attestations NPU Medical Necessity Statement*: Inpatient hospitalization is medically necessary and the clinically appropriate intervention, at this time. We will monitor medications and make changes as indicated. Likely length of stay is 2-4 days. Coding Level of Care Code Acute Mud Cleaner Operator for Nancy Hayward
[2021-05-08] MEDS: citalopram 20 mg Tablet 40 MG PO (10:19)
[2021-05-08] MEDS: insulin glargine 100 units/1 mL 30 UNIT SUBCUT (10:20)
[2021-05-08 10:56] LABS: Glucose Point of Care 350 mg/dL (70-110)
[2021-05-08] MEDS: insulin lispro 100 unit/1 mL SUBCUT ×3 (11:01→17:18)
[2021-05-08] MEDS: acetaminophen 325 mg Tablet 650 MG PO (12:16)
[2021-05-08 12:57] LABS: Glucose Point of Care 349 mg/dL (70-110)
[2021-05-08 14:00] VITALS: BP 126/81; PULSE 78; RESP 18; TEMP 36.7; O2SAT 98
[2021-05-08 16:25] LABS: Glucose Point of Care 118 mg/dL (70-110)
[2021-05-08 20:18] LABS: Glucose Point of Care 119 mg/dL (70-110)
[2021-05-08] MEDS: OLANZapine 5 mg ODT PO (20:49)
[2021-05-08] MEDS: trazodone 50 mg Tablet PO (20:49)
[2021-05-08] MEDS: insulin glargine 100 units/1 mL 25 UNIT SUBCUT (21:48)
[2021-05-08 22:00] VITALS: BP 98/55; PULSE 68; RESP 18; TEMP 36.8; O2SAT 96
--- NOTE | 2021-05-08 23:06 | PC.NURSE ---
Patient requested PRN medication Zyprexa 5 mg PO for anxiety and Trazadone 50 mg PO for sleep at 2048. Medication is effective.
[2021-05-09] MEDS: HYDROcodone-acetaminophen 7.5-325 mg Tablet 1 TAB PO ×4 (04:40→22:06)
[2021-05-09 06:00] VITALS: BP 101/63; PULSE 66; RESP 18; TEMP 36.6; O2SAT 96
[2021-05-09 06:26] LABS: Glucose Point of Care 135 mg/dL (70-110)
[2021-05-09 07:30] LABS: Glucose Point of Care 182 mg/dL (70-110)
[2021-05-09] MEDS: methocarbamol 500 mg Tablet PO ×2 (07:55→21:15)
[2021-05-09] MEDS: citalopram 20 mg Tablet 40 MG PO (07:55)
[2021-05-09] MEDS: pantoprazole DR 40 mg Tablet PO ×2 (07:55→18:22)
[2021-05-09] MEDS: insulin lispro 100 unit/1 mL SUBCUT ×5 (07:56→17:56)
--- NOTE | 2021-05-09 09:22 | P.NPUPN_ITS ---
Subjective NPU Subjective: Interval history: Patient presents today continuing to show improvement in her mood. She is starting to endorse some optimism that things could get better and she is from hospice to keep her blood sugar under control. She reports that her family is being more responsive than she expected and she is cautiously optimistic about the possibility for improvement at her home after discharge. Mental Status Exam MSE Comments: This is an obese, white female, in hospital scrubs, with adequate grooming, and eye contact. No abnormal movements. Cooperative with exam in no acute distress. Speech was more normal rate and volume. Mood described as better; affect brighter. Thought process, organized. Thought content: patient denied any suicidal or homicidal ideation, there were no delusions reported or noted, patient denied any auditory or visual hallucinations. Attention, conc entration, and memory appear intact but were not formally tested. She is alert and oriented times three. Insight and judgment are limited, and impulse control is limited. Vitals/I&O/Wt Last Vital Signs Temp 97.9 F 05/09/21 06:00 Pulse 66 05/09/21 06:00 Resp 18 05/09/21 06:00 BP 101/63 05/09/21 06:00 Pulse Ox 96 05/09/21 06:00 Weight last 48 hrs Weight 92.986 kg Data NPU : 05/05/21 15:31 05/05/21 15:31 A&P Additional A&P Information (1) Hypokalemia: (2) Suicide attempt: (3) Suicide ideation: (4) COPD (chronic obstructive pulmonary disease): (5) PTSD (post-traumatic stress disorder): (6) Type 2 diabetes mellitus, with long-term current use of insulin: (7) GERD (gastroesophageal reflux disease): (8) Hyperlipidemia: (9) Chest pain: (10) Major depressive disorder, recurrent: Additional A&P Information This is a 61-year-old, white female, with a long history of depression and multiple medical comorbidities, a reported history of post-traumatic stress disorder, which she did not go into, the details or causes, who presents open to some medication changes after a suicide attempt by insulin overdose. RECOMMENDATION AND PLAN: 1. Continue current medications. 2. Encourage individual, group, and milieu therapy. 3. Continue q-15 minute checks for safety. Involuntary Hold Information 96 Hour Hold: 96 Hour Involuntary Admission: No Attestations NPU Medical Necessity Statement*: Inpatient hospitalization is medically necessary and the clinically appropriate intervention, at this time. We will monitor medications and make changes as indicated. Likely length of stay is 1-3 days. Coding Level of Care Code Acute Dietary Cook for Nancy Hayward
[2021-05-09] MEDS: insulin glargine 100 units/1 mL 35 UNIT SUBCUT ×2 (11:05→18:08)
--- NOTE | 2021-05-09 11:07 | PC.NURSE ---
Insulin Administered 25 units of Lantus. Pt refused the full 35 units that was ordered. Nurse wasted 10units of insulin. Will continue to monitor pt.
[2021-05-09 11:28] LABS: Glucose Point of Care 251 mg/dL (70-110)
[2021-05-09 14:00] VITALS: BP 126/60; PULSE 70; RESP 18; TEMP 36.1; O2SAT 90
[2021-05-09] MEDS: acetaminophen 325 mg Tablet 650 MG PO (14:37)
[2021-05-09] MEDS: polyethylene glycol 3350 Pkt 17 gm PO (16:11)
[2021-05-09 16:35] LABS: Glucose Point of Care 323 mg/dL (70-110)
--- NOTE | 2021-05-09 17:12 | P.PN_ITS ---
Subjective Subjective: Interval history: Is refusing to take the insulin regimen that I have prescribed, patient is stating that she wants to take the same dose that she was taking at home, she has refused her insulin multiple times and she still hyperglycemic Vitals/I&O/Wt Last Vital Signs Temp 97.9 F 05/09/21 06:00 Pulse 66 05/09/21 06:00 Resp 18 05/09/21 06:00 BP 101/63 05/09/21 06:00 Pulse Ox 96 05/09/21 06:00 Weight last 48 hrs Weight 92.986 kg Physical Exam Narrative: EXAM NARRATIVE: Obese female S1, S2 with signs of nonpitting edema Abdomen distended with obesity Lower extremity venous stasis dermatitis no active cellulitis SIMBA cooperative Nonfocal neuro exam Data : 05/05/21 15:31 05/05/21 15:31 A&P Assessment and plan (1) Major depressive disorder, recurrent: Status: Acute (2) Suicide attempt: Status: Acute (3) Type 2 diabetes mellitus, with long-term current use of insulin: Status: Acute Qualifiers: Diabetes mellitus complication status: without complication Qualified Code(s): E11.9 - Type 2 diabetes mellitus without complications; Z79.4 - 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) use of insulin Additional A&P Information Type 2 diabetes with hyperglycemia: Patient is refusing to take insulin regimen that I have prescribed, she is still hyperglycemic no signs of DKA, I have increased sliding scale to high dose, added premeal insulin 5 mg before every meal which she has refused, Lantus dose has been increased as well, hemoglobin A1c around 8 It is very important to stick with the current insulin regimen not to control blood sugar to avoid DKA Patient needs verbal encouragement and reinforcement Consistent carbohydrate diet Calorie restriction 1800 emerson Attestations Medical Necessity Statement*: as per NPU Time Spent in Patient Care: less than 15 minutes Coding Level of Care Code Acute Cell Support Operator for vadim Fwd Diagnoses Major depressive disorder, recurrent F33.9 Suicide attempt T14.91XA Type 2 diabetes mellitus, with long-term current use of insulin E11.9; Z79.4 Diabetes mellitus complication status: without complication
--- NOTE | 2021-05-09 19:31 | PC.NURSE ---
insulin 1808 Administered 25units of Lantus, pt refused the 35unit order. Nurse wasted 10 units of Lantus. Will continue to monitor pt.
[2021-05-09 20:31] LABS: Glucose Point of Care 211 mg/dL (70-110)
[2021-05-09 21:00] VITALS: BP 96/62; PULSE 68; RESP 15; TEMP 36.6; O2SAT 95
--- NOTE | 2021-05-09 21:15 | PC.NURSE ---
pt requested sleep and spasm meds.trazodone 50mg po for sleep and robaxin 500mg po for spasms given.
[2021-05-09] MEDS: trazodone 50 mg Tablet PO (21:16)
--- NOTE | 2021-05-09 22:10 | PC.NURSE ---
pt requested pain med for back pain rated 8/10. norco 7.5/325 po given
--- NOTE | 2021-05-09 22:46 | PC.NURSE ---
pt resting quietly at this time.
[2021-05-10 06:00] VITALS: BP 125/65; PULSE 80; RESP 15; TEMP 36.8; O2SAT 97
[2021-05-10] MEDS: HYDROcodone-acetaminophen 7.5-325 mg Tablet 1 TAB PO ×3 (06:27→20:19)
[2021-05-10 06:30] LABS: Glucose Point of Care 88 mg/dL (70-110)
[2021-05-10] MEDS: insulin lispro 100 unit/1 mL SUBCUT ×4 (07:15→16:36)
[2021-05-10] MEDS: potassium chloride ER 20 mEq Tablet PO (08:09)
[2021-05-10] MEDS: pantoprazole DR 40 mg Tablet PO ×2 (08:09→20:18)
[2021-05-10] MEDS: citalopram 20 mg Tablet 40 MG PO (08:09)
--- NOTE | 2021-05-10 08:13 | PC.NURSE ---
refused scheduled Lasix
[2021-05-10] MEDS: methocarbamol 500 mg Tablet PO ×2 (09:28→20:18)
--- NOTE | 2021-05-10 09:28 | PC.NURSE ---
PRN ROBAXIN 500 MG GIVEN PO PER PT C/O STATED MUSCLE SPASMS
[2021-05-10] MEDS: insulin glargine 100 units/1 mL 25 UNIT SUBCUT ×2 (10:56→20:43)
[2021-05-10 11:02] LABS: Glucose Point of Care 280 mg/dL (70-110)
--- NOTE | 2021-05-10 11:10 | PC.SOCIAL ---
IMM update Discussed medicare rights with patient. Verbalized understanding. Provided patient with a copy and placed initialed, timed, dated copy in chart.
--- NOTE | 2021-05-10 11:56 | NPU.GN ---
[facility] Group Topic:Stressors Psych Education Worksheet General Mood of Group: Marcy did attend group therapy this morning. She participated with others in the group and shared experiences with others in the group and this writer producer.Marcy is excited and ready to go home. Marcy seems stable.
[2021-05-10 14:00] VITALS: BP 112/70; PULSE 74; RESP 20; TEMP 36.7; O2SAT 95
--- NOTE | 2021-05-10 14:44 | W.PM.NPUPNS ---
Subjective NPU Subjective: Interval history: Patient presents today reporting that she is starting to feel more like herself and feeling more emotions of missing her grandchildren and family than the resentment and issues that were present at the time of her suicide attempt. She reports that she is planning on following the recommendations of the treatment team and getting connected with significant outpatient services. We discussed the likelihood of discharge in the morning. Mental Status Exam MSE Comments: This is an obese, white female, in hospital scrubs, with adequate grooming, and eye contact. No abnormal movements. Cooperative with exam in no acute distress. Speech was more normal rate and volume. Mood described as I feel like I am ready to go home.; affect brighter. Thought process, organized. Thought content: patient denied any suicidal or homicidal ideation, there were no delusions reported or noted, patient denied any auditory or visual hallucinations. Attention, concentration, and memory appear intact but were not formally tested. She is alert and oriented times three. Insight and judgment are limited, and impulse control is limited, but improving. Vitals/I&O/Wt Last Vital Signs Temp 98.3 F 05/10/21 06:00 Pulse 80 05/10/21 06:00 Resp 15 05/10/21 06:00 BP 125/65 05/10/21 06:00 Pulse Ox 97 05/10/21 06:00 Weight last 48 hrs Weight 92.986 kg Data NPU : 05/05/21 15:31 05/05/21 15:31 A&P Additional A&P Information (1) Hypokalemia: (2) Suicide attempt: (3) Suicide ideation: (4) COPD (chronic obstructive pulmonary disease): (5) PTSD (post-traumatic stress disorder): (6) Type 2 diabetes mellitus, with long-term current use of insulin: (7) GERD (gastroesophageal reflux disease): (8) Hyperlipidemia: (9) Chest pain: (10) Major depressive disorder, recurrent: Additional A&P Information This is a 61-year-old, white female, with a long history of depression and multiple medical comorbidities, a reported history of post-traumatic stress disorder, which she did not go into, the details or causes, who presents open to some medication changes after a suicide attempt by insulin overdose. RECOMMENDATION AND PLAN: 1. Continue current medications. 2. Encourage individual, group, and milieu therapy. 3. Continue q-15 minute checks for safety. Involuntary Hold Information 96 Hour Hold: 96 Hour Involuntary Admission: No Attestations NPU Medical Necessity Statement*: Inpatient hospitalization is medically necessary and the clinically appropriate intervention, at this time. We will monitor medications and make changes as indicated. Likely length of stay is 1-2 days. Likely discharge in the morning. Coding Level of Care Code Acute Lumpia Wrapper Maker for Nancy Hayward
[2021-05-10 16:31] LABS: Glucose Point of Care 126 mg/dL (70-110)
[2021-05-10 20:11] LABS: Glucose Point of Care 140 mg/dL (70-110)
[2021-05-10 20:50] VITALS: BP 113/61; PULSE 60; RESP 17; TEMP 36.9; O2SAT 97
[2021-05-11] MEDS: HYDROcodone-acetaminophen 7.5-325 mg Tablet 1 TAB PO (02:52)
[2021-05-11 03:13] LABS: Glucose Point of Care 119 mg/dL (70-110)
[2021-05-11 05:52] LABS: Glucose Point of Care 191 mg/dL (70-110)
[2021-05-11 05:57] VITALS: BP 107/64; PULSE 67; RESP 17; TEMP 37.1; O2SAT 95
--- NOTE | 2021-05-11 05:57 | PC.NURSE ---
charge nurse and SCHOOL CURRICULUM DEVELOPER notified of pts blood glucose of 191
[2021-05-11] MEDS: insulin lispro 100 unit/1 mL SUBCUT ×2 (06:49→07:57)
[2021-05-11] MEDS: potassium chloride ER 20 mEq Tablet PO (07:53)
[2021-05-11] MEDS: methocarbamol 500 mg Tablet PO (07:53)
[2021-05-11] MEDS: pantoprazole DR 40 mg Tablet PO (07:53)
[2021-05-11] MEDS: citalopram 20 mg Tablet 40 MG PO (07:53)
[2021-05-11] MEDS: insulin glargine 100 units/1 mL 25 UNIT SUBCUT (07:58)
--- NOTE | 2021-05-11 08:53 | W.PM.NPUDCS ---
Diagnoses at Discharge Discharge Diagnosis (1) Major depressive disorder, recurrent: Status: Acute (2) Suicide attempt: Status: Acute (3) Type 2 diabetes mellitus, with long-term current use of insulin: Status: Acute Qualifiers: Diabetes mellitus complication status: without complication Qualified Code(s): E11.9 - Type 2 diabetes mellitus without complications; Z79.4 - skilled nursing (current) use of insulin Reason for Visit Reason for Visit: SI/OD on insulin Brief History: History of Present Illness Marcy Marina is a 61 year old female who presented to the emergency department with the following report: Chief complaint: Psychiatric Symptoms Stated complaint: SI/OD on insulin Time Seen by Provider: 05/05/21 16:02 History of Present Illness: HPI narrative: HPI: [61]yo patient w/ hx of DM on SSI/lantus depression BIBA foracute suicide attempt after ingesting an unknown quality of regular insulin. EMS was alerted and patient had a glucose of 55 that improved after 1am of D50. On arrival, the patient is AAOx3 and cooperative with my evaluation. No focal complaints of chest pain, shortness of breath, palpitations, N/V, focal GI/ complaints. Continues to endorse SI. No HX or active hallucinations. No complaints of fatigue. Onset: 1 day Duration: ongoing Location: home Severity: severe She was admitted to the neuropsychiatric unit for definitive treatment of those issues. 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 She reports that she has been in outpatient treatment but reports that with disability, her Medicaid was gone, and she does not have the money to continue treatment out of pocket. She reports that she was on Seroquel and Prazosin. She reports that those things were helpful. She reports that she is on Celexa 20 mg po qam that she continues to take. She reports she smokes upwards of a pack and a half of cigarettes a day, does not drink alcohol regularly, does not smoke marijuana, and denies any other illicit drugs, though she is on pain medications. She denies ever being to a rehab or having a DUI. She reports that she took the overdose of her insulin because she just could not take it anymore. She reports that this is her only suicide attempt. She reports that she has a 30-year-old daughter who has her own issues that lives in the house and her two granddaughters live there as well. Everybody takes and nobody gives, nobody is supportive, nobody helps, and she is stuck doing everything. Her daughter talks to her any kind of way, her does not support her in these challenges, and she just had enough. We discussed the fact that she was not on a 96-hour hold, but that this designer writer would need to feel comfortable with her current situation before we would allow her to be discharged, and she appeared to understand that. We discussed the risks, benefits, and alternatives of increasing her Celexa to 40 mg po qam and she understood and agreed to proceed as is documented in this note. She really had a lot of focus on how her daughter ?chews me up and down, and spits me out, and never says a kind thing.? She reports that her daughter has lived with her except for nine months at one point, two months at another point, and six weeks at another point, so has never really had her independence even though she is . That got into a long story about daughter?s and some allegations that were supposedly later determined to be unfounded. PSYCHIATRIC HISTORY: As above. SUBSTANCE ABUSE HISTORY: As above. FAMILY HISTORY: She does report mental health issues on her mother?s side of the family, but otherwise denies any family history of addiction, suicide attempts, or completions. DEVELOPMENTAL HISTORY: She reports that she was late being born. She denies any issues with her mother?s or delivery of her. She met all developmental milestones on time. She denies any speech therapy, learning support, emotional support, or special education classes. PSYCHOSOCIAL HISTORY: She reports that her parents were together when she was born, and only had her younger sister as a product of that same union. Neither parent had any other children. She reports that her childhood was pretty good. There was no emotional, physical, or sexual abuse. She reports that she did graduate from high school and also had a college degree. She endorses being heterosexual with her longest relationship being 35 years, however that relationship is complicated because she reports she has been four times and three times, but multiple marriages are to the same person. 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 She currently lives in a doublewide with her , daughter, and daughter?s two children. LEGAL HISTORY: Denied. MEDICAL HISTORY: Obesity, diabetes, chronic obstructive pulmonary disease, back problems, spinal stenosis, pain syndrome. Hospital Course Hospital Course To the individual, group and milieu therapies provided. We increased her Celexa to 40 mg p.o. every morning and she had marked improvement. There were significant psychosocial challenges in the home and we worked to support her to confront those while she was hospitalized. She was ultimately able to contract for safety prior to discharge. During the hospitalization, patient had routine laboratory studies which were within normal limits except for few outliers. Additionally there was a general medical evaluation which was also within normal limits and revealed no new acute processes. Discharge Summary: At the time of discharge, she denied psychosis or lethality. Mood and anxiety were well managed. Patient endorsed a plan to avoid all drugs of abuse and follow-up with the aftercare recommendations of the treatment team. Patient was evaluated and deemed to be absent credible lethality, and had achieved the maximum benefit from an inpatient hospitalization, so was discharged. Involuntary Hold Information 96 Hour Hold: 96 Hour Involuntary Admission: No Mental Status Exam MSE Comments: This is an obese, white female, in hospital scrubs, with adequate grooming, and eye contact. No abnormal movements. Cooperative with exam in no acute distress. Speech was more normal rate and volume. Mood described as a feel good; affect congruent. Thought process, organized. Thought content: patient denied any suicidal or homicidal ideation, there were no delusions reported or noted, patient denied any auditory or visual hallucinations. Attention, concentration, and memory appear intact but were not formally tested. She is alert and oriented times three. Insight and judgment are improving, and impulse control is improving. Discharge Data Data Completed and Pending: Labs from last 24 hours 05/11/21 05/11/21 05/10/21 05:44 03:07 20:09 POC Glucose 191 H 119 H 140 H 05/10/21 05/10/21 16:28 10:59 POC Glucose 126 H 280 H Vitals: Last Vital Signs Temp 98.8 F 05/11/21 05:57 Pulse 67 05/11/21 05:57 Resp 17 05/11/21 05:57 BP 107/64 05/11/21 05:57 Pulse Ox 95 05/11/21 05:57 Discharge Plan Discharge Patient Disposition: Home Condition: Stable Prescriptions: New citalopram 20 mg Tablet 40 mg PO DAILY 30 Days Qty: 30 RF: 1 furosemide 20 mg Tablet 20 mg PO DAILY@0800 30 Days Qty: 30 RF: 0 Continued coenzyme Q10 [Co Q-10] 400 mg capsule 400 mg PO BEDTIME RF: 0 cholecalciferol (vitamin D3) 25 mcg (1,000 unit) capsule 25 mcg PO BEDTIME RF: 0 albuterol sulfate [Proventil HFA] 90 mcg/actuation HFA aerosol inhaler 2 puff inhalation Q6H PRN (Reason: shortness of breath or wheezing) Qty: 8.5 RF: 3 Protonix 40 mg tablet,delayed release (DR/EC) 40 mg PO BID Qty: 180 RF: 1 gemfibrozil 600 mg tablet 600 mg PO BID 90 Days Qty: 60 RF: 0 prazosin 1 mg capsule 1 mg PO QPM Qty: 30 RF: 0 Hold Instructions: Patient No Longer Taking isosorbide mononitrate 30 mg tablet extended release 24 hr 45 mg PO BID Qty: 270 RF: 3 montelukast [Singulair] 10 mg tablet 10 mg PO DAILY Qty: 30 RF: 3 diphenhydramine HCl [Benadryl Allergy] 25 mg Tablet 25 mg PO BEDTIME RF: 0 sennosides-docusate sodium [Stool Softener-Laxative] 8.6-50 mg Tablet 1 tab-cap PO BEDTIME PRN (Reason: Constipation) RF: 0 aspirin 81 mg Tablet,Delayed Release (Dr/Ec) 81 mg PO BEDTIME RF: 0 hydrocodone-acetaminophen 7.5-325 mg Tablet 1 tab PO QID PRN (Reason: Pain) RF: 0 loratadine [Claritin] 10 mg Tablet 10 mg PO DAILY RF: 0 magnesium oxide 400 mg magnesium Tablet 400 mg PO BEDTIME RF: 0 Women's 50 Plus Multivitamin 1 tab 1 tab PO BEDTIME RF: 0 potassium gluconate 595 mg (99 mg) tablet 595 mg PO DAILY PRN (Reason: unknown) RF: 0 atorvastatin 40 mg Tablet 40 mg PO BEDTIME RF: 0 methocarbamol 500 mg tablet 500 mg PO BID PRN (Reason: Muscle Spasm) RF: 0 Novolin R Flexpen 100 unit/mL (3 mL) insulin pen See Rx Instructions .ROUTE .COMPLEX RF: 0 Lantus Solostar U-100 Insulin 100 unit/mL (3 mL) insulin pen 25 unit SUBCUT BID Qty: 5 RF: 3 Discontinued Seroquel 25 mg tablet 25 mg PO BEDTIME Qty: 30 RF: 0 citalopram 20 mg tablet See Rx Instructions .ROUTE .COMPLEX RF: 0 Discharge Orders: Discharge Order (Routine); Ordered 05/11/21 Ordered By: Jeffrey Coffman Referrals: [facility] [Other] - 05/17/21 8:20 am (Labs and Shelly Crystal) [facility]-Dr Osman [Other] - 07/20/21 2:00 pm [facility] [Outside] - 4-7 days (Walk in on Tuesdays or from 7:30am to 3:00pm to complete an initial assessment. ) Ermelinda Cason MD [Physician] - 2 weeks Mendoza,STEPAN Sims [Primary Care Provider] - Discharge Diet: Diabetic Discharge Activity: Resume usual activity Patient Instructions: Depression, Citalopram (By mouth), Opioid Safety Discharge Attestations NPU Time Spent in Discharge Care*: less than 30 min Specific Discharge Activities: Specific discharge activities: educating patient, discussing with major case detective/social workers/dc planners, documenting/other paperwork and evaluating patient/reviewing data Coding Level of Care Code Acute [facility] FW DC note Diagnoses Major depressive disorder, recurrent F33.9 Suicide attempt T14.91XA Type 2 diabetes mellitus, with long-term current use of insulin E11.9; Z79.4 Diabetes mellitus complication status: without complication
[2021-05-11 09:00] VITALS: BP 107/64; PULSE 67; RESP 17; TEMP 37.1; O2SAT 95
== END 2021-05-11 09:26 | disposition home or self-care (01) | DRG 885 ==
LOC: ER 17:11 → NP 17:41
PROVIDERS: Internal Medicine; Admitting Provider Psychiatry & Neurology Psychiatry; Emergency Provider Emergency Medicine; PCP Nurse Practitioner Family; Visit Provider Psychiatry & Neurology Psychiatry
DX: F33.9 Major depressive disorder, recurrent, unspecified (principal); F43.10 Post-traumatic stress disorder, unspecified; T38.3X2A Poisoning by insulin and oral hypoglycemic [antidiabetic] drugs, intentional self-harm, initial encounter; Z79.4 Long term (current) use of insulin; E78.5 Hyperlipidemia, unspecified; K21.9 Gastro-esophageal reflux disease without esophagitis; G89.4 Chronic pain syndrome; M48.00 Spinal stenosis, site unspecified; E11.65 Type 2 diabetes mellitus with hyperglycemia; E87.6 Hypokalemia; R51.9 Headache, unspecified; J44.9 Chronic obstructive pulmonary disease, unspecified; F17.210 Nicotine dependence, cigarettes, uncomplicated; Z79.891 Long term (current) use of opiate analgesic; Z79.82 Long term (current) use of aspirin; E66.9 Obesity, unspecified; Z68.35 Body mass index [BMI] 35.0-35.9, adult; Z63.79 Other stressful life events affecting family and household; Z81.8 Family history of other mental and behavioral disorders
CPT/HCPCS: 36415; 36416; 80048; 80306; 80307; 82962; 83036; 85025; 96372; 97150; 97165; 99285; J1815 ×2; Q0169

== ENCOUNTER → 2021-06-04 09:25 | Outpatient (BNVA) | payer MEDICARE, OTHER, SELFPAY | PROVIDERS: PCP Nurse Practitioner Family; Visit Provider Social Worker | DX: F33.9 Major depressive disorder, recurrent, unspecified (principal); F43.10 Post-traumatic stress disorder, unspecified | CPT/HCPCS: 90837; 90834 ==

== ENCOUNTER → 2021-06-18 09:29 | Outpatient (BNVA) | payer MEDICARE, OTHER, SELFPAY | PROVIDERS: PCP Nurse Practitioner Family; Visit Provider Social Worker | DX: F33.9 Major depressive disorder, recurrent, unspecified (principal); F43.10 Post-traumatic stress disorder, unspecified | CPT/HCPCS: 90837; 90834 ==

== ENCOUNTER → 2021-06-28 08:21 | Outpatient (BNVA) | payer MEDICARE, OTHER, SELFPAY | PROVIDERS: PCP Nurse Practitioner Family; Visit Provider Social Worker | DX: F33.9 Major depressive disorder, recurrent, unspecified (principal); F43.10 Post-traumatic stress disorder, unspecified | CPT/HCPCS: 90837; 90834 ==

== ENCOUNTER → 2021-07-05 08:17 | Outpatient (BNVA) | payer MEDICARE, OTHER, SELFPAY | PROVIDERS: PCP Nurse Practitioner Family; Visit Provider Social Worker | DX: F33.9 Major depressive disorder, recurrent, unspecified (principal); F43.10 Post-traumatic stress disorder, unspecified | CPT/HCPCS: 90837; 90834 ==

== ENCOUNTER → 2021-07-12 08:28 | Outpatient (BNVA) | payer MEDICARE, OTHER, SELFPAY | PROVIDERS: PCP Nurse Practitioner Family; Visit Provider Social Worker | DX: F33.9 Major depressive disorder, recurrent, unspecified (principal); F43.10 Post-traumatic stress disorder, unspecified | CPT/HCPCS: 90837; 90834 ==

== ENCOUNTER → 2021-07-14 13:38 | Outpatient (BNVA) | payer MEDICARE, OTHER, SELFPAY | PROVIDERS: PCP Nurse Practitioner Family; Visit Provider Nurse Practitioner Psychiatric/Mental Health | DX: F33.2 Major depressive disorder, recurrent severe without psychotic features (principal); F41.1 Generalized anxiety disorder; F43.12 Post-traumatic stress disorder, chronic; F17.210 Nicotine dependence, cigarettes, uncomplicated | CPT/HCPCS: 90792 ==

== ENCOUNTER → 2021-08-02 12:16 | Outpatient (BNVA) | payer MEDICARE, OTHER, SELFPAY | PROVIDERS: PCP Nurse Practitioner Family; Visit Provider Social Worker | DX: F33.2 Major depressive disorder, recurrent severe without psychotic features (principal); F41.1 Generalized anxiety disorder; F43.12 Post-traumatic stress disorder, chronic | CPT/HCPCS: 90837; 90834 ==

== ENCOUNTER → 2021-08-11 07:12 | Outpatient (BNVA) | payer MEDICARE, OTHER, SELFPAY | PROVIDERS: PCP Nurse Practitioner Family; Visit Provider Nurse Practitioner Psychiatric/Mental Health | DX: F33.2 Major depressive disorder, recurrent severe without psychotic features (principal); F41.1 Generalized anxiety disorder; F43.12 Post-traumatic stress disorder, chronic; F17.210 Nicotine dependence, cigarettes, uncomplicated | CPT/HCPCS: 99214 ==

== ENCOUNTER → 2021-08-16 09:27 | Outpatient (BNVA) | payer MEDICARE, OTHER, SELFPAY | PROVIDERS: PCP Nurse Practitioner Family; Visit Provider Social Worker | DX: F41.1 Generalized anxiety disorder (principal); F43.12 Post-traumatic stress disorder, chronic | CPT/HCPCS: 90837; 90839 ==

== ENCOUNTER → 2021-08-23 09:14 | Outpatient (BNVA) | payer MEDICARE, OTHER, SELFPAY | PROVIDERS: PCP Nurse Practitioner Family; Visit Provider Social Worker | DX: F41.1 Generalized anxiety disorder (principal); F33.2 Major depressive disorder, recurrent severe without psychotic features; F43.12 Post-traumatic stress disorder, chronic | CPT/HCPCS: 90837; 90834 ==

== ENCOUNTER → 2021-09-08 09:07 | Outpatient (BNVA) | payer MEDICARE, OTHER, SELFPAY | PROVIDERS: PCP Nurse Practitioner Family; Visit Provider Nurse Practitioner Psychiatric/Mental Health | DX: F33.2 Major depressive disorder, recurrent severe without psychotic features (principal); F41.1 Generalized anxiety disorder; F43.12 Post-traumatic stress disorder, chronic; F17.210 Nicotine dependence, cigarettes, uncomplicated | CPT/HCPCS: 99214 ==

== ENCOUNTER 2021-09-09 18:23 | Observation (INO) | payer MEDICARE, OTHER, SELFPAY ==
[2021-09-09] VITALS (12 sets, daily range): BP systolic 96–146; BP diastolic 49–84; PULSE 61–89; RESP 14–18; TEMP 36.7; O2SAT 91–99; BMI 34.3
--- NOTE | 2021-09-09 18:39 | ECG_ITS ---
[facility] Test Date: 2021-09-09 Pat Name: Marcy Marina Department: Room: Gender: Female Pouncing Lathe Operator: : 1960 Requested By: Leah Lemons Order Number: [id number] Evie MD: Hailey Blakely M.D. Measurements Intervals [place] Rate: 80 P: 59 RI: 156 QRS: 10 QRSD: 72 T: 56 QT: 356 QTc: 411 Interpretive Statements SINUS RHYTHM POSSIBLE RIGHT VENTRICULAR CONDUCTION DELAY [RSR (QR) IN V1/V2] SEPTAL MYOCARDIAL INFARCTION , OF INDETERMINATE AGE [40+ ms Q WAVE IN V1/V2] Compared to ECG 01/30/2021 14:50:27 Myocardial infarct finding now present Electronically Signed On 09-10-2021 5:53:39 THERMOMETER PRODUCTION WORKER by Hailey Blakely M.D. [id number]
--- NOTE | 2021-09-09 18:39 | XRR_ITS ---
PROCEDURE INFORMATION: Exam: XR Chest Exam date and time: 09/09/2021 6:39 PM Age: 61 years old Clinical indication: Sternal or substernal pain; Additional info: Cp TECHNIQUE: Imaging protocol: XR of the chest. Views: 1 view. COMPARISON: CR XR chest 1V portable [id number] 01/30/2021 1:44 PM FINDINGS: Lungs: Stable moderate COPD . Pleural spaces: Unremarkable. No pleural effusion. No pneumothorax. Heart/Mediastinum: Unremarkable. No cardiomegaly. Bones/joints: Unremarkable. XR/XR chest 1V portable [id number] IMPRESSION: Stable moderate COPD .
[2021-09-09 19:37] LABS: Basophils # 0.1 10^3/uL (0.0-0.1); Basophils % 0.8 %; Eosinophils # 0.3 10^3/uL (0.0-0.8); Eosinophils % 2.1 %; Hematocrit 42.4 % (37.0-47.0); Hemoglobin 13.9 g/dL (11.5-15.3); Lymphocytes # 3.2 10^3/uL (0.8-4.8); Lymphocytes % 25.7 %; Mean Corpuscular HGB Conc 32.8 g/dL (30.0-36.0); Mean Corpuscular Volume 88.3 fl (81-99); Mean Platelet Volume 9.9 fL (7.4-10.4); Monocytes # 0.9 10^3/uL (0.2-0.9); Monocytes % 6.8 %; Neutrophils % 64.1 %; Nucleated Red Blood Cells % 0 %; Platelet Count 435 10^3/cmm (130-400); Red Cell Distribution Width 12.8 % (12.1-15.1); White Blood Count 12.6 10^3/uL (4.0-10.0)
[2021-09-09 19:56] LABS: Troponin(5th) Baseline 11 ng/L (0-10)
[2021-09-09 19:59] LABS: Alanine Aminotransferase 11 U/L (0-33); Albumin Level 4.5 g/dL (3.5-5.2); Alkaline Phosphatase 167 IU/L (35-105); Anion Gap 17.2 (5-19); Aspartate Amino Transferase 16 U/L (0-32); Blood Urea Nitrogen 9 mg/dL (6-20); Calcium 9.9 mg/dL (8.5-10.5); Carbon Dioxide 21 mmol/L (22-29); Chloride 102 mmol/L (98-107); Globulin 2.5 g/dL (1.3-4.6); Glomerular Filtration Rate 102.3 mL/min (90-130); Glucose 149 mg/dL (65-115); Osmolality Calculated 283 mOsm/kg (285-295); Potassium 4.2 mmol/L (3.5-5.1); Sodium 136 mmol/L (136-145); Total Bilirubin 0.2 mg/dL (0.15-1.2)
--- NOTE | 2021-09-09 20:31 | CTR_ITS ---
PROCEDURE INFORMATION: Exam: CTA Chest With Contrast Exam date and time: 09/09/2021 8:31 PM Age: 61 years old Clinical indication: Other: R shoulder pain radiating to back and to R jaw; Patient HX: R side shoulder/back and jaw pain x4 hours; Additional info: Eval dissection TECHNIQUE: Imaging protocol: Computed tomographic angiography of the chest with contrast. 3D rendering (Not supervised by radiologist): MIP and/or 3D reconstructed images were created and reviewed. COMPARISON: 1. CT abdomen pelvis w con* [id number] 2017-12-19 15:[address] chest con [id number] 2020-09-04 11:35 FINDINGS: Pulmonary arteries: Normal. No pulmonary emboli. Aorta: Unremarkable. No aortic aneurysm. No aortic dissection. Other arteries: Left vertebral artery arises from the aortic arch. Lungs: Unremarkable. No consolidation. No masses. Pleural spaces: Unremarkable. No pneumothorax. No pleural effusion. Heart: Coronary mild atherosclerotic disease. Lymph nodes: Unremarkable. No enlarged lymph nodes. Bones/joints: Unremarkable. No acute fracture. Soft tissues: Unremarkable. PROCEDURE INFORMATION: Exam: CTA Abdomen and Pelvis With Contrast Exam date and time: 09/09/2021 8:31 PM Age: 61 years old Clinical indication: Other: R shoulder pain radiating to back and to R jaw; Patient HX: R side shoulder/back and jaw pain x4 hours; Additional info: Eval dissection TECHNIQUE: Imaging protocol: Computed tomographic angiography of the abdomen and pelvis with contrast material. 3D rendering (Not supervised by radiologist): MIP and/or 3D reconstructed images were created by the technologist. Radiation optimization: All CT scans at this facility use at least one of these dose optimization techniques: automated exposure control; mA and/or kV adjustment per patient size (includes targeted exams where dose is matched to clinical indication); or iterative reconstruction. Contrast material: OMNI 350; Contrast volume: 75 ml; Contrast route: INTRAVENOUS (IV); COMPARISON: 1. CT abdomen pelvis w con* [id number] 2017-12-19 15:[address] chest con [id number] 2020-09-04 11:35 RADIATION DOSE METRICS: Total DLP (mGy-cm): 2947.74 FINDINGS: Aorta: No aortic aneurysm. No aortic dissection. Celiac trunk and mesenteric arteries: No occlusion or significant stenosis. Renal arteries: No occlusion or significant stenosis. Right iliac arteries: No occlusion or significant stenosis. Left iliac arteries: No occlusion or significant stenosis. Liver: No mass. Gallbladder and bile ducts: Cholecystectomy clips in the right upper quadrant. Pancreas: Unremarkable. No mass. No ductal dilation. Spleen: Unremarkable. No splenomegaly. Adrenal glands: Unremarkable. No mass. Kidneys and ureters: Unremarkable. No solid mass. No hydronephrosis. Stomach and bowel: Proximal colectomy with ileocolic anastomosis in the right abdomen. Appendix: No evidence of appendicitis. Intraperitoneal space: Unremarkable. No free air. No significant fluid collection. Lymph nodes: Unremarkable. No enlarged lymph nodes. Urinary bladder: Unremarkable. No mass. Reproductive: Hysterectomy. Bones/joints: No acute fracture. No dislocation. Soft tissues: Unremarkable. CT/CT angio chest abdomen pelvis IMPRESSION: No acute abnormality. IMPRESSION: No acute abnormality.
--- NOTE | 2021-09-09 20:31 | CTR_ITS ---
PROCEDURE INFORMATION: Exam: CT Angiography Head With Contrast, Arteriography Exam date and time: 09/09/2021 8:31 PM Age: 61 years old Clinical indication: Other: R side neck and jaw pain; Patient HX: R side shoulder/back and jaw pain x4 hours; Additional info: Eval dissection TECHNIQUE: Imaging protocol: Computed tomography angiography of the head with contrast. Exam focused on the arteries. 3D rendering (Not supervised by radiologist): MIP and/or 3D reconstructed images were created by the technologist. Radiation optimization: All CT scans at this facility use at least one of these dose optimization techniques: automated exposure control; mA and/or kV adjustment per patient size (includes targeted exams where dose is matched to clinical indication); or iterative reconstruction. Contrast material: OMNI 350; Contrast volume: 75 ml; Contrast route: INTRAVENOUS (IV); COMPARISON: CT head wo con* [id number] 09/09/2021 8:45 PM RADIATION DOSE METRICS: Total DLP (mGy-cm): 2401.54 FINDINGS: ANTERIOR CIRCULATION: Right internal carotid artery: Unremarkable. Intracranial segment is patent with no significant stenosis. No aneurysm. Right middle cerebral artery: Unremarkable. No occlusion or significant stenosis. No aneurysm. Right anterior cerebral artery: Unremarkable. No occlusion or significant stenosis. No aneurysm. Left internal carotid artery: Dominant left internal carotid artery which supplies the left posterior cerebral artery in addition to the left anterior and middle cerebral arteries. Left middle cerebral artery: Unremarkable. No occlusion or significant stenosis. No aneurysm. Left anterior cerebral artery: Unremarkable. No occlusion or significant stenosis. No aneurysm. POSTERIOR CIRCULATION: Right vertebral artery: Unremarkable. No occlusion or significant stenosis. No aneurysm. Left vertebral artery: Unremarkable. No occlusion or significant stenosis. No aneurysm. Basilar artery: Unremarkable. No occlusion or significant stenosis. No aneurysm. Right posterior cerebral artery: Unremarkable. No occlusion or significant stenosis. No aneurysm. Left posterior cerebral artery: Direct origin of the left posterior cerebral artery from the anterior circulation. Other arteries: Codominant vertebral arteries. Brain: No definite mass, mass effect, or midline shift. Cerebral ventricles: No ventriculomegaly. Bones/joints: Unremarkable. No acute fracture. Soft tissues: Unremarkable. Paranasal sinuses: Mild right maxillary sinus disease. Mild left sphenoid sinus disease. PROCEDURE INFORMATION: Exam: CT Angiography Neck With Contrast Exam date and time: 09/09/2021 8:31 PM Age: 61 years old Clinical indication: Other: R side neck and jaw pain; Patient HX: R side shoulder/back and jaw pain x4 hours; Additional info: Eval dissection TECHNIQUE: Imaging protocol: Computed tomography angiography of the neck with contrast. 3D rendering (Not supervised by radiologist): MIP and/or 3D reconstructed images were created by the technologist. Radiation optimization: All CT scans at this facility use at least one of these dose optimization techniques: automated exposure control; mA and/or kV adjustment per patient size (includes targeted exams where dose is matched to clinical indication); or iterative reconstruction. Contrast material: OMNI 350; Contrast volume: 75 ml; Contrast route: INTRAVENOUS (IV); COMPARISON: CT head wo con* [id number] 09/09/2021 8:45 PM RADIATION DOSE METRICS: Total DLP (mGy-cm): 2401.54 FINDINGS: Right common carotid artery: No stenosis. No dissection or occlusion. Right internal carotid artery: No ICA stenosis by NASCET/SRU criteria. Right external carotid artery: No occlusion or stenosis of the origin. Left common carotid artery: No stenosis. No dissection or occlusion. Left internal carotid artery: Dominant left internal carotid artery with patent right internal carotid artery. Left external carotid artery: No occlusion or stenosis of the origin. Left callosomarginal artery: Moderate to severe multilevel spine degenerative changes including degenerative disc disease, spondylosis and facet degenerative changes. Right vertebral artery: Dominant left vertebral artery with patent right vertebral artery. Left vertebral artery: No stenosis. No dissection or occlusion. Aorta: Calcification of the thoracic aorta and/or great vessels consistent with atherosclerotic vessel disease. Direct origin of the left vertebral artery from the aortic arch which is a normal variant seen in 1% of the population. Soft tissues: Normal. No significant soft tissue swelling. Bones/joints: Mild dextroscoliosis. CT/CT angio headneck* [id number] IMPRESSION: 1. Mild right maxillary sinus disease. 2. Mild left sphenoid sinus disease. 3. Dominant left internal carotid artery which supplies the left posterior cerebral artery in addition to the left anterior and middle cerebral arteries. 4. No large vessel occlusion. IMPRESSION: 1. Dominant left vertebral artery with patent right vertebral artery. 2. Dominant left internal carotid artery with patent right internal carotid artery. 3. No ICA stenosis by NASCET/SRU criteria. REFERENCES: NASCET CRITERIA. The degree of internal carotid artery stenosis is based on NASCET criteria. Normal is no stenosis. Mild is less than 50% stenosis. Moderate is 50-69% stenosis. Severe is 70% to 99% stenosis. Total occlusion is no detectable patent lumen.
--- NOTE | 2021-09-09 20:36 | W.ED.GENADLT ---
HPI - General Adult General: Chief complaint: Chest Pain Stated complaint: SOB, right side jaw hurting Time Seen by Provider: 09/09/21 19:57 History of Present Illness: CC: Chest Pain HPI: This is a [61] yo patient hx of DM, HLD, COPD smoking presenting to the ED w/ acute sudden intermittent substernal squeezing and sharp chest pain x 1 day with radiation to the back shoulder blades. Has shortness of breath worse with exertion for the last few days. Pain is not tearing in nature and does not radiate to the back. Endorse nausea but has no associated with vomiting or decreased PO intake. Denies any recent sympathomimetic drug use. Patient denies any cough. Denies palpitations, syncope symptoms. Pain not positional. Norecent immobility, surgery, unilateral leg swelling, or prior PE. Patient denies any orthopnea, paroxysmal nocturnal dyspnea, weight gain, or increased leg swellings. Patient also reports onset of right-sided neck pain with the chest chest pain radiating towards the back. No family history of aortic aneurysm or connective tissue disorders. Onset: today Duration: ongoing Location: home Severity: moderate Associated symptoms: Reports chest pain and dyspnea; Deny nausea, rash, palpitations or vomiting Review of Systems Const: Denies: fever(s) or chills Eyes: Denies: change in vision ENMT: Reports: other (+R sided neck pain); Denies: mouth pain Card: Reports: chest pain; Denies: palpitations Resp: Reports: dyspnea; Denies: non-productive cough GI: Denies: abdominal pain, nausea, vomiting or diarrhea : Denies: dysuria Musc: Denies: extremity pain Skin/Breast: Denies: rash or new lesions Neuro: Denies: weakness in extremities Psych: Reports: other (Normal mood) Shaan/Lymph: Denies: easy bruising PFSH ED PFSH: Medical History Asthma Bilateral hand swelling Chest pain Chronic post-traumatic stress disorder COPD (chronic obstructive pulmonary disease) Diastolic dysfunction Encounter for smoking cessation counseling Generalized anxiety disorder GERD (gastroesophageal reflux disease) Hyperlipidemia Major depressive disorder, recurrent severe without psychotic features Nicotine dependence, cigarettes, uncomplicated Nicotine dependence, cigarettes, with unspecified nicotine-induced disorders PTSD (post-traumatic stress disorder) Torn rotator cuff Type 2 diabetes mellitus, with long-term current use of insulin Surgical History H/O section History of mastoidectomy History of parotid gland removal S/P appendectomy S/P cholecystectomy S/P hysterectomy S/P rotator cuff repair Family History Other Diabetes Heart disease Hypercholesterolemia Hypertension Osteoporosis Social History Quit status (tobacco): considering quitting Second hand smoke exposure: Yes Smoking risk assessment/counseling performed?: Yes Alcohol intake: never Lives independently: Yes Household members: spouse Housing: House Marital status: service: No Current occupational status: disabled Pets and animals: No History of recent travel: No Current gender identity: Female Physical Exam Const: COMMON NORMALS: alert HENMT: COMMON NORMALS: atraumatic HEAD & SCALP: atraumatic MOUTH: moist mucous membranes not abnormal Eye: COMMON NORMALS: EOMs intact bilaterally and conjunctivae normal CONJUNCTIVA: Yes conjunctivae normal Neck/C-Spine: COMMON NORMALS: full ROM and supple Resp: COMMON NORMALS: normal respiratory effort and clear to auscultation bilaterally AUSCULTATION: clear to auscultation bilaterally Cardio: COMMON NORMALS: regular rate RATE: regular rate OTHER: 2+ radial pulses GI: COMMON NORMALS: Soft to palpation and non-tender PALPATION: Yes Soft to palpation Extremity: COMMON NORMALS: full ROM Neuro: SENSORIUM/ORIENTATION: Yes alert MOTOR EXAM: No Abnormal motor strength present and Other motor observations present (no focal motor deficits) Psych: COMMON NORMALS: speech normal SPEECH: Yes normal speech MOOD & AFFECT: Yes euthymic mood Course Vital Signs: Vital signs: Vital Signs Temperature 98.1 F 09/09/21 18:31 Pulse Rate 85 09/09/21 18:31 Respiratory Rate 18 09/09/21 18:31 Blood Pressure 123/78 09/09/21 18:31 Pulse Oximetry 98 09/09/21 18:31 MDM - General Adult Medical Decision Making [61]yo patient w/ hx of DM, HLD, smoking presenting to the ED With acute substernal chest pain X 1 day with radiation to the back. Currently mild chest pain. Pain relieved with nitro, ASA, and morphine. [9:52] On reassessment, the patient is currently chest pain free. S/p aspirin 325mg. He has allergies to morphine however does not have allergies allergies to hydrocodone or Dilaudid. Patient received Dilaudid and nitro with improvement in pain. First troponin of 11. Given pain radiating towards back, CTA was ordered. CTA is negative for dissection. No signs of PE on CTA. EKG is nonischemic currently. I performed a shared decision-making with patient for admission vs close outpatient followup with cardiology. 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 Disposition: Inpatient admission Lab Data : 09/09/21 19:23 09/09/21 19:23 Radiology Impressions Chest X-Ray 09/09/21 18:39 IMPRESSION: Stable moderate COPD . Chest/Abdomen/Pelvis CTA 09/09/21 20:31 IMPRESSION: No acute abnormality. IMPRESSION: No acute abnormality. Head/Neck CTA 09/09/21 20:31 IMPRESSION: 1. Mild right maxillary sinus disease. 2. Mild left sphenoid sinus disease. 3. Dominant left internal carotid artery which supplies the left posterior cerebral artery in addition to the left anterior and middle cerebral arteries. 4. No large vessel occlusion. IMPRESSION: 1. Dominant left vertebral artery with patent right vertebral artery. 2. Dominant left internal carotid artery with patent right internal carotid artery. 3. No ICA stenosis by NASCET/SRU criteria. REFERENCES: NASCET CRITERIA. The degree of internal carotid artery stenosis is based on NASCET criteria. Normal is no stenosis. Mild is less than 50% stenosis. Moderate is 50-69% stenosis. Severe is 70% to 99% stenosis. Total occlusion is no detectable patent lumen. Head CT 09/09/21 20:38 IMPRESSION: 1. Mild right maxillary sinus disease. 2. Mild left sphenoid sinus disease. 3. No acute intracranial findings. Laboratory Results WBC 12.6 10^3/uL (4.0-10.0) H 09/09/21 19:23 RBC 4.80 10^6/uL (4.1-5.3) 09/09/21: Hgb 13.9 g/dL (11.5-15.3) 09/09/21: Hct 42.4 % (37.0-47.0) 09/09/21: MCV 88.3 fl (81-99) 09/09/21: MCH 29.0 pg (28.0-34.0) 09/09/21: MCHC 32.8 g/dL (30.0-36.0) 09/09/21: RDW 12.8 % (12.1-15.1) 09/09/21: Plt Count 435 10^3/cmm (130-400) H 09/09/21: MPV 9.9 fL (7.4-10.4) 09/09/21: Neut % (Auto) 64.1 % 09/09/21: Lymph % (Auto) 25.7 % 09/09/21: Cedar % (Auto) 6.8 % 09/09/21: Eos % (Auto) 2.1 % 09/09/21: Baso % (Auto) 0.8 % 09/09/21: Neut # (Auto) 8.10 10^3/uL (1.8-7.7) H 09/09/21: Lymph # (Auto) 3.2 10^3/uL (0.8-4.8) 09/09/21: Cedar # (Auto) 0.9 10^3/uL (0.2-0.9) 09/09/21: Eos # (Auto) 0.3 10^3/uL (0.0-0.8) 09/09/21: Baso # (Auto) 0.1 10^3/uL (0.0-0.1) 09/09/21 Nucleated RBC % (auto) 0 % 09/09/21 Nucleated RBCs # 0.0 /100WBC 09/09/21 D-Dimer <= 0.27 ug/mIFEU (0-0.59) 09/09/21 21:06 Sodium 136 mmol/L (136-145) 03/10/22 19:23 Potassium 4.2 mmol/L (3.5-5.1) 09/09/21 19:23 Chloride 102 mmol/L (98-107) 09/09/21 19: Carbon Dioxide 21 mmol/L (22-29) L 09/09/21 19: Anion Gap 17.2 (5-19) 09/09/21 19:23 BUN 9 mg/dL (6-20) 09/09/21 19: Creatinine 0.6 mg/dL (0.5-0.9) 09/09/21 19: GFR Calculation 102.3 mL/min (90-130) 09/09/21 19: Glucose 149 mg/dL (65-115) H 09/09/21 19: Calculated Osmolality 283 mOsm/kg (285-295) L 09/09/21 19: Calcium 9.9 mg/dL (8.5-10.5) 09/09/21: Total Bilirubin 0.2 mg/dL (0.15-1.2) 09/09/21 19: AST 16 U/L (0-32) 09/09/21 19: ALT 11 U/L (0-33) 09/09/21 19: Alkaline Phosphatase 167 IU/L (35-105) H 09/09/21 19:23 Troponin T Baseline 11 ng/L (0-10) H 09/09/21 19:23 Troponin T 120 Minute 6.00 ng/L (0-10) 09/09/21 21:06 Delta Troponin T -5.00 ABS# (0-10) L 09/09/21 21:06 Total Protein 7.0 g/dL (6.6-8.7) 09/09/21 19: Albumin 4.5 g/dL (3.5-5.2) 09/09/21 19: Globulin 2.5 g/dL (1.3-4.6) 09/09/21 19: Imaging Data Other Imaging: Radiologist's impression: [address] [address] [address] Scan Report Signed Patient: Marcy Marina Unit #: [id number] : 1960 Age/Sex: 61 / F ADM Date: 09/09/21 Loc: ER Room/Bed: Attending Dr: Ordering Provider/Ordering MD: Peggy Louis MD Date of Service: 09/09/21 Procedure(s): CT head wo con* [id number] Accession Number(s): [id number] Report Number: [id number] PROCEDURE INFORMATION: Exam: CT Head Without Contrast Exam date and time: 09/09/2021 8:38 PM Age: 61 years old Clinical indication: Other: R side neck and face pain; Patient HX: R side neck and facial pain x4 hours; Additional info: Eval R sided neck pain and face pain TECHNIQUE: Imaging protocol: Computed tomography of the head without contrast. Radiation optimization: All CT scans at this facility use at least one of these dose optimization techniques: automated exposure control; mA and/or kV adjustment per patient size (includes targeted exams where dose is matched to clinical indication); or iterative reconstruction. COMPARISON: CT facial bones w con [id number] 02/25/2020 1:52 PM RADIATION DOSE METRICS: Total DLP (mGy-cm): 858.34 FINDINGS: Brain: Normal. No hemorrhage. Unremarkable white matter. No mass effect. Cerebral ventricles: No ventriculomegaly. Paranasal sinuses: Mild right maxillary sinus disease. Mild left sphenoid sinus disease. Mastoid air cells: Visualized mastoid air cells are well aerated. Vasculature: Mild calcified intracranial atherosclerotic vessel disease. Bones/joints: Unremarkable. No acute fracture. Soft tissues: Unremarkable. CT/CT head wo con* [id number] IMPRESSION: 1. Mild right maxillary sinus disease. 2. Mild left sphenoid sinus disease. 3. No acute intracranial findings. ? Dictated By: Justus Mcbride MD Signed By: Justus Mcbride MD Signed Date/Time: 09/09/212145 DD/ [address] [address] [address] Scan Report Signed Patient: Marcy Marina Unit #: [id number] : 1960 Age/Sex: 61 / F ADM Date: 09/09/21 Loc: ER Room/Bed: Attending Dr: Ordering Provider/Ordering MD: Peggy Louis MD Date of Service: 09/09/21 Procedure(s): CT angio chest abdomen pelvis Accession Number(s): [id number] Report Number: [id number] PROCEDURE INFORMATION: Exam: CTA Chest With Contrast Exam date and time: 09/09/2021 8:31 PM Age: 61 years old Clinical indication: Other: R shoulder pain radiating to back and to R jaw; Patient HX: R side shoulder/back and jaw pain x4 hours; Additional info: Eval dissection TECHNIQUE: Imaging protocol: Computed tomographic angiography of the chest with contrast. 3D rendering (Not supervised by radiologist): MIP and/or 3D reconstructed images were created and reviewed. COMPARISON: 1. CT abdomen pelvis w con* [id number] 2017-12-19 15:[address] chest con [id number] 2020-09-04 11:35 FINDINGS: Pulmonary arteries: Normal. No pulmonary emboli. Aorta: Unremarkable. No aortic aneurysm. No aortic dissection. Other arteries: Left vertebral artery arises from the aortic arch. Lungs: Unremarkable. No consolidation. No masses. Pleural spaces: Unremarkable. No pneumothorax. No pleural effusion. Heart: Coronary mild atherosclerotic disease. Lymph nodes: Unremarkable. No enlarged lymph nodes. Bones/joints: Unremarkable. No acute fracture. Soft tissues: Unremarkable. PROCEDURE INFORMATION: Exam: CTA Abdomen and Pelvis With Contrast Exam date and time: 09/09/2021 8:31 PM Age: 61 years old Clinical indication: Other: R shoulder pain radiating to back and to R jaw; Patient HX: R side shoulder/back and jaw pain x4 hours; Additional info: Eval dissection TECHNIQUE: Imaging protocol: Computed tomographic angiography of the abdomen and pelvis with contrast material. 3D rendering (Not supervised by radiologist): MIP and/or 3D reconstructed images were created by the technologist. Radiation optimization: All CT scans at this facility use at least one of these dose optimization techniques: automated exposure control; mA and/or kV adjustment per patient size (includes targeted exams where dose is matched to clinical indication); or iterative reconstruction. Contrast material: OMNI 350; Contrast volume: 75 ml; Contrast route: INTRAVENOUS (IV);? COMPARISON: 1. CT abdomen pelvis w con* [id number] 2017-12-19 15:[address] chest con [id number] 2020-09-04 11:35 RADIATION DOSE METRICS: Total DLP (mGy-cm): 2947.74 FINDINGS: Aorta: No aortic aneurysm. No aortic dissection. Celiac trunk and mesenteric arteries: No occlusion or significant stenosis. Renal arteries: No occlusion or significant stenosis. Right iliac arteries: No occlusion or significant stenosis. Left iliac arteries: No occlusion or significant stenosis. Liver: No mass. Gallbladder and bile ducts: Cholecystectomy clips in the right upper quadrant. Pancreas: Unremarkable. No mass. No ductal dilation. Spleen: Unremarkable. No splenomegaly. Adrenal glands: Unremarkable. No mass. Kidneys and ureters: Unremarkable. No solid mass. No hydronephrosis. Stomach and bowel: Proximal colectomy with ileocolic anastomosis in the right abdomen. Appendix: No evidence of appendicitis. Intraperitoneal space: Unremarkable. No free air. No significant fluid collection. Lymph nodes: Unremarkable. No enlarged lymph nodes. Urinary bladder: Unremarkable. No mass. Reproductive: Hysterectomy. Bones/joints: No acute fracture. No dislocation. Soft tissues: Unremarkable. CT/CT angio chest abdomen pelvis IMPRESSION: No acute abnormality. ? ? IMPRESSION: No acute abnormality. ? Dictated By: Keith Woodson MD Signed By: Keith Woodson MD Signed Date/Time: 09/09/212141 DD/ [address] [address] [address] Scan Report Signed Patient: Marcy Marina Unit #: [id number] : 1960 Age/Sex: 61 / F ADM Date: 09/09/21 Loc: ER Room/Bed: Attending Dr: Ordering Provider/Ordering MD: Peggy Louis MD Date of Service: 09/09/21 Procedure(s): CT head wo con* [id number] Accession Number(s): [id number] Report Number: [id number] PROCEDURE INFORMATION: Exam: CT Head Without Contrast Exam date and time: 09/09/2021 8:38 PM Age: 61 years old Clinical indication: Other: R side neck and face pain; Patient HX: R side neck and facial pain x4 hours; Additional info: Eval R sided neck pain and face pain TECHNIQUE: Imaging protocol: Computed tomography of the head without contrast. Radiation optimization: All CT scans at this facility use at least one of these dose optimization techniques: automated exposure control; mA and/or kV adjustment per patient size (includes targeted exams where dose is matched to clinical indication); or iterative reconstruction. COMPARISON: CT facial bones w con [id number] 02/25/2020 1:52 PM RADIATION DOSE METRICS: Total DLP (mGy-cm): 858.34 FINDINGS: Brain: Normal. No hemorrhage. Unremarkable white matter. No mass effect. Cerebral ventricles: No ventriculomegaly. Paranasal sinuses: Mild right maxillary sinus disease. Mild left sphenoid sinus disease. Mastoid air cells: Visualized mastoid air cells are well aerated. Vasculature: Mild calcified intracranial atherosclerotic vessel disease. Bones/joints: Unremarkable. No acute fracture. Soft tissues: Unremarkable. CT/CT head wo con* [id number] IMPRESSION: 1. Mild right maxillary sinus disease. 2. Mild left sphenoid sinus disease. 3. No acute intracranial findings. ? Dictated By: Justus Mcbride MD Signed By: Justus Mcbride MD Signed Date/Time: 09/09/212145 DD/ 37 Discharge Plan Discharge Patient Disposition: Admitted As Inpatient Clinical Impression: Chest pain, Back pain Condition: Stable Coding Level of Care Code ED Bungy Jump Master for Chg Fwd Exam Comprehensive
--- NOTE | 2021-09-09 20:39 | ECG_ITS ---
[facility] Test Date: 2021-09-09 Pat Name: Marcy Marina Department: Room: Gender: Female [employer] And Sports Book Writer: : 1960 Requested By: Leah Lemons Order Number: [id number] Evie MD: Hailey Blakely M.D. Measurements Intervals [place] Rate: 70 P: 25 NH: 152 QRS: -26 QRSD: 78 T: 26 QT: 389 QTc: 422 Interpretive Statements SINUS RHYTHM BORDERLINE LEFT AXIS DEVIATION [QRS AXIS < -20] MINIMAL ST DEPRESSION [0.025+ mV ST DEPRESSION] Compared to ECG 09/09/2021 18:39:07 ST (T wave) deviation now present Myocardial infarct finding no longer present Electronically Signed On 09-10-2021 6:03:36 DAIRY FARMER by Hailey Blakely M.D. [id number]
[2021-09-09] MEDS: HYDROcodone-acetaminophen 5-325 mg Tablet 1 TAB PO (21:08)
[2021-09-09] MEDS: iohexol 350 mg/mL 100 mL Btl IV (21:12)
[2021-09-09 21:27] LABS: D Dimer <= 0.27 ug/mIFEU (0-0.59)
[2021-09-09] MEDS: HYDROmorphone 1 mg/mL INJ 1 mL 0.5 MG IVP (22:41)
--- NOTE | 2021-09-09 22:49 | ECG_ITS ---
[facility] Test Date: 2021-09-10 Pat Name: Marcy Marina Department: Room: 276 Gender: Female Copy Supervisor: Elena Tyson : 1960 Requested By: Dayami Gayle Order Number: [id number] Evie MD: Inder Borges M.D. Interpretive Statements NAME OF STUDY: LEXISCAN SESTAMIBI STRESS TEST INDICATION: [Chest Pain, ] Procedure: At the baseline, the blood pressure was 81/56 mmHg with a heart rate of 62 bpm. The electrocardiogram showed normal sinus rhythm, normal axis with normal ST and T's. The Lexiscan was infused over a period of 20 seconds. A total of 0.4 mg of Lexiscan was infused. The stress phase was continued for a total of 5 minutes. Heart rate was at the end of stress phase was 116 bpm and a blood pressure of 127/78 mmHg. The EKG at the peak infusion revealed since normal sinus rhythm with no significant ST-T wave changes. Sestamibi was injected 20 seconds after the Lexiscan infusion. Blood pressure at the end of recovery phase was 109/56 mmHg with a heart rate of 74 bpm. Conclusion: 1. Normal EKG response to Lexiscan infusion 2. No Lexiscan induced chest pain or cardiac arrhythmia. 3. Normal blood pressure and heart rate response. 4. Sestamibi/sestamibi perfusion scan pending; see separate report. Electronically Signed On 10-09-2021 12:48:44 CDT by Inder Borges M.D. [id number]
[2021-09-09] MEDS: aspirin 325 mg Tablet PO (23:54)
[2021-09-10] VITALS: BP 108/65; PULSE 63; RESP 18; O2SAT 94
[2021-09-10 00:10] VITALS: BMI 35.2
[2021-09-10] MEDS: famotidine 20 mg/2 mL INJ IVP (00:30)
--- NOTE | 2021-09-10 00:39 | ECG_ITS ---
[facility] Test Date: 2021-09-09 Pat Name: Marcy Marina Department: Room: 276 Gender: Female Safety Specialist: : 1960 Requested By: Leah Lemons Order Number: [id number] Evie MD: Hailey Blakely M.D. Measurements Intervals [place] Rate: 73 P: 48 MN: 144 QRS: -22 QRSD: 79 T: 29 QT: 401 QTc: 442 Interpretive Statements SINUS RHYTHM POSSIBLE RIGHT VENTRICULAR CONDUCTION DELAY [RSR (QR) IN V1/V2] SEPTAL MYOCARDIAL INFARCTION , OF INDETERMINATE AGE [40+ ms Q WAVE IN V1/V2] Compared to ECG 09/09/2021 18:39:07 No significant changes Electronically Signed On 09-10-2021 6:03:42 RATTLE LEAK [employer] SQUEAK REPAIRER by Hailey Blakely M.D. [id number]
--- NOTE | 2021-09-10 01:00 | PM.HP ---
Providers/Chief Complaint Admitting Physician: Dayami Gayle MD Primary Care Provider: STEPAN Smith Chief Complaint: SOB, right side jaw hurting History of Present Illness Marcy Marina is a 61 year old female with PMH DM, HLD, COPD smoking presenting to the ED w/ acute sudden? intermittent substernal squeezing and sharp chest pain x 1 day with radiation to the back. Associated symptoms include nausea. Denies any dyspnea, palpitations, syncope. Ekg today without acute ST-T wave changes. Baseline trop at 11, 2 hrs delta not currently significant. Patient received Dilaudid and nitro sublingually with improvement in pain. CTA chest, abdomen and pelvis was negative for dissection and PE. She follows with cardiology as outpatient for anginal chest pain, last stress test from 2019 had shown Small perfusion abnormality of mild severity of apical lateral, apical?inferior and apical monreal likely represents attenuation artifact.Normal LVEF 70%. Review of Systems General: Reports: 10 or more systems reviewed and unremarkable except in HPI and below Const: Denies: fever(s), chills or body aches Eyes: Denies: change in vision, blurry vision or photophobia ENMT: Reports: hoarseness; Denies: throat pain, enlarged tonsils, odynophagia or nasal congestion Card: Denies: chest pain, palpitations, irregular heart rhythm, edema, swelling of feet/ankles, lightheadedness, pre-syncope, dyspnea on exertion or orthopnea Resp: Denies: dyspnea, productive cough, non-productive cough, wheezing, stridor, pain on inspiration, change in phlegm color, hemoptysis or chest congestion GI: Denies: abdominal pain, nausea, vomiting, hematemesis, coffee ground emesis, dysphagia, heartburn, diarrhea, constipation, GI cramping, change in stool character, hematochezia or melena : Denies: flank pain, difficulty voiding, dysuria, urinary frequency, urinary urgency, urinary hesitancy or hematuria Musc: Denies: neck pain, back pain, extremity pain, joint swelling, joint warmth or deformity Neuro: Denies: headache(s), numbness in extremities, weakness in extremities, sensory changes, difficulty walking, frequent falls, dizziness, vertigo, behavioral changes, Slurred speech present or seizure-like activity Psych: Denies: anxiety, depression, suicidal ideation or homicidal ideation Endo: Denies: polyuria, polydipsia, tired all the time, cold intolerance or hot flashes [place]/Lymph: Denies: easy bruising or easy bleeding Medications/Allergies Home Medications Medication Instructions Recorded Confirmed Last Taken Type Women's 50 Plus Multivitamin 1 tab PO BEDTIME 07/08/19 09/08/21 02/24/20 History aspirin 81 mg tablet,delayed 81 mg PO BEDTIME 07/08/19 09/08/21 01/29/21 History release hydrocodone 7.5 mg-acetaminophen 1 tab PO QID PRN 07/08/19 09/08/21 01/29/21 History 325 mg tablet loratadine 10 mg tablet (Claritin) 10 mg PO DAILY 07/08/19 09/08/21 02/25/20 History magnesium oxide 400 mg PO BEDTIME 07/08/19 09/08/21 01/29/21 History sennosides 8.6 mg-docusate sodium 1 tab-cap PO BEDTIME PRN 07/08/19 09/08/21 Unknown History 50 mg tablet (Stool Softener-Laxative) diphenhydramine HCl 25 mg tablet 25 mg PO BEDTIME 02/25/20 09/08/21 01/29/21 History (Benadryl Allergy) coenzyme Q10 400 mg capsule (Co 400 mg PO BEDTIME 07/17/20 09/08/21 01/29/21 History Q-10) cholecalciferol (vitamin D3) 25 25 mcg PO BEDTIME 09/03/20 09/08/21 01/29/21 History mcg (1,000 unit) capsule albuterol sulfate 90 mcg/actuation 2 puff INHALATION Q6H PRN #8.5 g 11/02/20 09/08/21 Unknown Rx aerosol inhaler (Proventil HFA) gemfibrozil 600 mg tablet 600 mg PO BID 90 Days #60 tab 11/02/20 09/08/21 01/29/21 Rx pantoprazole 40 mg tablet,delayed 40 mg PO BID #180 tab 11/02/20 09/08/21 01/29/21 Rx release (Protonix) atorvastatin 40 mg tablet 40 mg PO BEDTIME 01/30/21 09/08/21 01/29/21 History methocarbamol 500 mg tablet 500 mg PO BID PRN 01/30/21 09/08/21 Unknown History isosorbide mononitrate 30 mg 45 mg PO BID #270 tab 03/24/21 09/08/21 Unknown Rx tablet,extended release 24 hr montelukast 10 mg tablet 10 mg PO DAILY #30 tab 04/16/21 09/08/21 Unknown Rx (Singulair) citalopram 40 mg tablet (Celexa) 40 mg PO .morning #90 tab 07/14/21 09/08/21 Unknown Rx insulin glargine 100 unit/mL (3 15 unit SUBCUT DIRECTED ml 09/08/21 09/08/21 Unknown History mL) subcutaneous pen (Lantus Solostar U-100 Insulin) insulin regular human 100 unit/mL See Rx Instructions .ROUTE .COMPLEX 09/08/21 09/08/21 Unknown History (3 mL) subcutaneous pen (Novolin R Flexpen) quetiapine 25 mg tablet (Seroquel) 25 mg PO BID PRN #60 tab 09/08/21 09/08/21 Unknown Rx Allergies Allergy/AdvReac Type Severity Reaction Status Date / Time chlorpheniramine Allergy ALGY-Anaphy Verified 04/16/21 08:56 [From Tussionex] laxis clavulanic acid Allergy ADR-Vomitin Verified 04/16/21 08:56 g erythromycin base Allergy ALGY-Hives Verified 04/16/21 08:56 lisinopril Allergy ADR-Cough Verified 04/16/21 08:56 metformin Allergy ADR-Diarrhe Verified 04/16/21 08:56 a morphine Allergy ALGY-Swell Verified 04/16/21 08:56 Lip/Tongue/Throat omeprazole [From Prilosec] Allergy ADR-Itching Verified 04/16/21 08:56 ondansetron [From Zofran] Allergy ALGY-Anaphy Verified 04/16/21 08:56 laxis Sulfa (Sulfonamide Allergy ALGY-Hives Verified 04/16/21 08:56 Antibiotics) tramadol Allergy ADR-Halluci Verified 04/16/21 08:56 nating PFSH Acute PFSH: Medical History Asthma Bilateral hand swelling Chest pain Chronic post-traumatic stress disorder COPD (chronic obstructive pulmonary disease) Diastolic dysfunction Encounter for smoking cessation counseling Generalized anxiety disorder GERD (gastroesophageal reflux disease) Hyperlipidemia Major depressive disorder, recurrent severe without psychotic features Nicotine dependence, cigarettes, uncomplicated Nicotine dependence, cigarettes, with unspecified nicotine-induced disorders PTSD (post-traumatic stress disorder) Torn rotator cuff Type 2 diabetes mellitus, with long-term current use of insulin Surgical History H/O section History of mastoidectomy History of parotid gland removal S/P appendectomy S/P cholecystectomy S/P hysterectomy S/P rotator cuff repair Family History Other Diabetes Heart disease Hypercholesterolemia Hypertension Osteoporosis Social History Quit status (tobacco): considering quitting Second hand smoke exposure: Yes Smoking risk assessment/counseling performed?: Yes Alcohol intake: never Lives independently: Yes Household members: spouse Housing: House Marital status: service: No Current occupational status: disabled Pets and animals: No History of recent travel: No Current gender identity: Female Vitals/I&O/Wt Last Vital Signs Temp 98.3 F 09/10/21 04:00 Pulse 61 09/10/21 04:00 Resp 18 09/10/21 04:00 BP 99/61 09/10/21 04:00 Pulse Ox 94 09/10/21 04:00 Weight last 48 hrs Weight 92.986 kg Weight 90.718 kg Physical Exam Narrative: GEN: Awake, alert and oriented, no acute distress CVS: S1S2 N RS: CTA B/L all areas Abd: Soft, nt/nd , bs+ REPAIRER HELPER: no focal neuro deficits Data : 09/09/21 19:23 09/09/21 19:23 Other Labs: Radiology Impressions Chest X-Ray 09/09/21 18:39 IMPRESSION: Stable moderate COPD . Chest/Abdomen/Pelvis CTA 09/09/21 20:31 IMPRESSION: No acute abnormality. IMPRESSION: No acute abnormality. Head/Neck CTA 09/09/21 20:31 IMPRESSION: 1. Mild right maxillary sinus disease. 2. Mild left sphenoid sinus disease. 3. Dominant left internal carotid artery which supplies the left posterior cerebral artery in addition to the left anterior and middle cerebral arteries. 4. No large vessel occlusion. IMPRESSION: 1. Dominant left vertebral artery with patent right vertebral artery. 2. Dominant left internal carotid artery with patent right internal carotid artery. 3. No ICA stenosis by NASCET/SRU criteria. REFERENCES: NASCET CRITERIA. The degree of internal carotid artery stenosis is based on NASCET criteria. Normal is no stenosis. Mild is less than 50% stenosis. Moderate is 50-69% stenosis. Severe is 70% to 99% stenosis. Total occlusion is no detectable patent lumen. Head CT 09/09/21 20:38 IMPRESSION: 1. Mild right maxillary sinus disease. 2. Mild left sphenoid sinus disease. 3. No acute intracranial findings. Laboratory Results WBC 12.6 10^3/uL (4.0-10.0) H 09/09/21 19: RBC 4.80 10^6/uL (4.1-5.3) 09/09/21 19: Hgb 13.9 g/dL (11.5-15.3) 09/09/21 19: Hct 42.4 % (37.0-47.0) 09/09/21 19: MCV 88.3 fl (81-99) 09/09/21 19: MCH 29.0 pg (28.0-34.0) 09/09/21 19: MCHC 32.8 g/dL (30.0-36.0) 09/09/21 19: RDW 12.8 % (12.1-15.1) 09/09/21 19: Plt Count 435 10^3/cmm (130-400) H 09/09/21 19: MPV 9.9 fL (7.4-10.4) 09/09/21 19: Neut % (Auto) 64.1 % 09/09/21 19: Lymph % (Auto) 25.7 % 09/09/21 19: [place] % (Auto) 6.8 % 09/09/21 19: Eos % (Auto) 2.1 % 09/09/21 19: Baso % (Auto) 0.8 % 09/09/21: Neut # (Auto) 8.10 10^3/uL (1.8-7.7) H 09/09/21: Lymph # (Auto) 3.2 10^3/uL (0.8-4.8) 09/09/21: [place] # (Auto) 0.9 10^3/uL (0.2-0.9) 09/09/21: Eos # (Auto) 0.3 10^3/uL (0.0-0.8) 09/09/21: Baso # (Auto) 0.1 10^3/uL (0.0-0.1) 09/09/21: Nucleated RBC % (auto) 0 % 09/09/21 Nucleated RBCs # 0.0 /100WBC 09/09/21 D-Dimer <= 0.27 ug/mIFEU (0-0.59) 09/09/21 21:06 Sodium 136 mmol/L (136-145) 09/09/21: Potassium 4.2 mmol/L (3.5-5.1) 09/09/21: Chloride 102 mmol/L (98-107) 09/09/21: Carbon Dioxide 21 mmol/L (22-29) L 09/09/21: Anion Gap 17.2 (5-19) 09/09/21: BUN 9 mg/dL (6-20) 09/09/21: Creatinine 0.6 mg/dL (0.5-0.9) 09/09/21: GFR Calculation 102.3 mL/min (90-130) 09/09/21 19: Glucose 149 mg/dL (65-115) H 09/09/21: Calculated Osmolality 283 mOsm/kg (285-295) L 09/09/21: Calcium 9.9 mg/dL (8.5-10.5) 09/09/21: Total Bilirubin 0.2 mg/dL (0.15-1.2) 09/09/21 19: AST 16 U/L (0-32) 09/09/21: ALT 11 U/L (0-33) 09/09/21 19:23 Alkaline Phosphatase 167 IU/L (35-105) H 09/09/21 19:23 Troponin T Baseline 11 ng/L (0-10) H 09/09/21 19:23 Troponin T 120 Minute 6.00 ng/L (0-10) 09/09/21 21:06 Delta Troponin T -5.00 ABS# (0-10) L 09/09/21 21:06 Troponin T Hi Sens 6Hr 7.11 ng/L (0-10) 09/10/21 01:15 Troponin T Hi Sens 6Hr Delta -3.89 ng/L (0-12) L 09/10/21 01:15 Total Protein 7.0 g/dL (6.6-8.7) 09/09/21 19:23 Albumin 4.5 g/dL (3.5-5.2) 09/09/21 19:23 Globulin 2.5 g/dL (1.3-4.6) 09/09/21 19:23 NM MIBI/MIBI Stress/Rest 10/30/18 ?IMPRESSIONS ?1. Small perfusion abnormality of mild severity of apical lateral, apical ?inferior and apical monreal likely represents attenuation artifact. ?2. Overall left ventricular systolic function is normal without regional wall ?motion abnormalities. ?3. The left ventricular ejection fraction is normal with a value of 70%. ?4.? No coronary ischemia based on this study. ?5.? No prior similar studies to compare. A&P Assessment and plan (1) Chest pain: Patient presenting with chest pain with concern for angina Last stress test from 2019 as noted above CTA negative for PE and dissection Will evaluate with cardiac stress test in am EKG negative for acute St-T wave changes, troponin series without significant delta In the interim continue ASA 81mg po daily, atorvastatin , home dose of isosorbide mononitrate Status: Acute Attestations Medical Necessity Statement*: observation admission for anginal type chest pain, evaluate further with stress test in am Coding Level of Care Code Acute Dry Plasterer for Nancy Hayward Diagnoses Chest pain R07.9
[2021-09-10] MEDS: HYDROcodone-acetaminophen 7.5-325 mg Tablet 1 TAB PO ×2 (01:23→09:33)
[2021-09-10 02:20] LABS: Troponin 5 6HR 7.11 ng/L (0-10)
[2021-09-10 02:51] LABS: Troponin 5 6HR Delta -3.89 ng/L (0-12)
[2021-09-10 04:00] VITALS: BP 99/61; PULSE 61; RESP 18; TEMP 36.8; O2SAT 94
[2021-09-10] MEDS: regadenoson 0.4 Mg/5 ml Syringe IVP (07:53)
[2021-09-10 07:57] VITALS: BP 146/73; PULSE 65; RESP 18; TEMP 36.8; O2SAT 95
[2021-09-10] MEDS: aminophylline 25 mg/mL SDV 10 mL IVP (08:13)
[2021-09-10 08:14] VITALS: BP 109/56; PULSE 75
[2021-09-10] MEDS: gemfibrozil 600 mg Tablet PO (09:32)
[2021-09-10] MEDS: pantoprazole DR 40 mg Tablet PO (09:32)
[2021-09-10] MEDS: citalopram 20 mg Tablet 40 MG PO (09:32)
[2021-09-10] MEDS: isosorbide mononitrate ER 30 mg Tablet PO (09:32)
[2021-09-10] MEDS: insulin lispro 100 unit/1 mL SUBCUT (09:33)
--- NOTE | 2021-09-10 09:56 | PC.CHAP ---
Pastoral Care Encounter/Spiritual Assessment Type of Contact [] Declined marketing ambassador visit [] Patient/Family/Request visit [] Outpatient visit [] Follow-up visit [] Physician referral [] Code/Alert [x] Routine visit [] Staff referral [] Actively dying [] Patient sleeping [] Family support [] [] Out of room [] Palliative care [] [x] Receiving care in room [] Pre-surgical visit [] Trauma [] Long length of stay [] ICU visit [] Other: Relational/Emotional Strength [] Patient feels connected with others/family/visitors/staff [] Distress [] Loneliness/isolation [] Abandonment Spirituality of Patient [] Person of Tori [] Attends Yazidism of their Tori [] Believes in Prayer [] Reads Bible or Lutheran materials [] There are Spiritual issues to be addressed Graduating Machine Operator Interventions [] Prayer [] Active listening [] Non-anxious presence [] Spiritual/emotional support [] Crisis/trauma care [] Spiritual counseling [] Bereavement support [] Provided bereavement packet [] Provided Bible/devotional materials [] Provided toy/stuffed animal, coloring book to patient or family member [] Provided Communion [] Anointing/[place] [] Salvation [] Completed spiritual assessment [] Other: Impact on Illness or Injury [] Angry [] Fearful [] Anxious [] Often cries [] Exhaustion [] Unable to work [] Unable to attend orthodoxy [] Unable to walk/stand [] Unable to read [] Unable to drive [] Unable to eat/drink [] Unable to sleep [] Unable to be with family [] Patient intubated [] Other: Summary Time spent with patient
[2021-09-10 10:16] LABS: Free T4 Free Thyroxine 1.06 ng/dL (0.82-1.77); T3 Free 2.5 PG/ML (2.0-4.4); Thyroid Stimulating Hormone 3.05 uIU/mL (0.27-4.20)
[2021-09-10 11:09] VITALS: BP 104/67; PULSE 65; RESP 20; TEMP 36.4; O2SAT 92
--- NOTE | 2021-09-10 11:22 | P.DS_ITS ---
Discharge Providers Date of Admission: 09/09/21 21:48 Date of Discharge: September 10, 2021 Attending Provider at Admission: Dayami Gayle MD Attending Provider at Discharge: Reji Dominguez MD Primary Care Provider: STEPAN Smith Diagnoses at Discharge Discharge Diagnosis (1) Chest pain: Status: Acute Reason for Visit Reason for Visit: SOB, right side jaw hurting Hospital Course Hospital Course Marcy Marina is a 61 year old female with PMH DM, HLD, COPD smoking presenting to the ED w/ acute sudden? intermittent substernal squeezing and sharp chest pain x 1 day with radiation to the back Patient was admitted for chest pain, CT was negative for PE or aortic dissection, no acute ST-T wave changes on EKG, no significant delta troponin, cardiac stress test low probability obstructive CAD, discharged with her home aspirin, statin, Imdur with close follow-up with primary care provider as outpatient. Patient's pain was likely musculoskeletal, continue home hydrocodone and Soma. Patient was advised should have recurrent chest pain to the emergency room. Physical Exam Const: COMMON NORMALS: no acute distress and patient oriented x3 Resp: COMMON NORMALS: normal respiratory effort, No retractions, No use of accessory muscles and clear to auscultation bilaterally AUSCULTATION: clear to auscultation bilaterally Cardio: COMMON NORMALS: regular rate, regular rhythm, S1 normal heart sound present and S2 normal heart sound present RATE: regular rate RHYTHM: regular rhythm HEART SOUNDS: S1 normal heart sound present and S2 normal heart sound present GI: COMMON NORMALS: Normal to inspection, nondistended, normoactive bowel sounds present, Soft to palpation, non-tender and No hepatosplenomegaly present PALPATION: Yes Soft to palpation and Yes No hepatosplenomegaly present Extremity: COMMON NORMALS: no pedal edema Neuro: COMMON NORMALS: patient oriented x3 Psych: COMMON NORMALS: mental status grossly normal Discharge Data Studies Completed and Pending Completed Studies During Hospitalization Category Date Time Status CT head wo con* [id number] Urgent Cat Scan 09/09/21 20:38 Completed CTA chest abdomen pelvis [CT angio chest abdomen pelvis Cat Scan 09/09/21 20:31 Completed ] Urgent CTA head neck [CT angio headneck* [id number]] Urgent Cat Scan 09/09/21 20:31 Completed Cardiac Stress Test MIBI [Sestamibi Stress Test Request Exams 09/09/21 22:49 Draft ] Routine XR chest 1V portable [id number] Stat Exams 09/09/21 18:39 Completed NM teri perf SPECT r/s* [id number] Routine Nuc Med 09/10/21 22:53 Completed Radiology Impressions Chest X-Ray 09/09/21 18:39 IMPRESSION: Stable moderate COPD . Chest/Abdomen/Pelvis CTA 09/09/21 20:31 IMPRESSION: No acute abnormality. IMPRESSION: No acute abnormality. Head/Neck CTA 09/09/21 20:31 IMPRESSION: 1. Mild right maxillary sinus disease. 2. Mild left sphenoid sinus disease. 3. Dominant left internal carotid artery which supplies the left posterior cerebral artery in addition to the left anterior and middle cerebral arteries. 4. No large vessel occlusion. IMPRESSION: 1. Dominant left vertebral artery with patent right vertebral artery. 2. Dominant left internal carotid artery with patent right internal carotid artery. 3. No ICA stenosis by NASCET/SRU criteria. REFERENCES: NASCET CRITERIA. The degree of internal carotid artery stenosis is based on NASCET criteria. Normal is no stenosis. Mild is less than 50% stenosis. Moderate is 50-69% stenosis. Severe is 70% to 99% stenosis. Total occlusion is no detectable patent lumen. Head CT 09/09/21 20:38 IMPRESSION: 1. Mild right maxillary sinus disease. 2. Mild left sphenoid sinus disease. 3. No acute intracranial findings. Laboratory Results WBC 12.6 10^3/uL (4.0-10.0) H 09/09/21 19: RBC 4.80 10^6/uL (4.1-5.3) 09/09/21 19: Hgb 13.9 g/dL (11.5-15.3) 09/09/21 19: Hct 42.4 % (37.0-47.0) 09/09/21 19: MCV 88.3 fl (81-99) 09/09/21 19: MCH 29.0 pg (28.0-34.0) 09/09/21 19: MCHC 32.8 g/dL (30.0-36.0) 09/09/21 19: RDW 12.8 % (12.1-15.1) 09/09/21: Plt Count 435 10^3/cmm (130-400) H 09/09/21 19: MPV 9.9 fL (7.4-10.4) 09/09/21 19: Neut % (Auto) 64.1 % 09/09/21: Lymph % (Auto) 25.7 % 09/09/21: [place] % (Auto) 6.8 % 09/09/21: Eos % (Auto) 2.1 % 09/09/21: Baso % (Auto) 0.8 % 09/09/21: Neut # (Auto) 8.10 10^3/uL (1.8-7.7) H 09/09/21: Lymph # (Auto) 3.2 10^3/uL (0.8-4.8) 09/09/21: [place] # (Auto) 0.9 10^3/uL (0.2-0.9) 09/09/21: Eos # (Auto) 0.3 10^3/uL (0.0-0.8) 09/09/21: Baso # (Auto) 0.1 10^3/uL (0.0-0.1) 09/09/21: Nucleated RBC % (auto) 0 % 09/09/21: Nucleated RBCs # 0.0 /100WBC 09/09/21: D-Dimer <= 0.27 ug/mIFEU (0-0.59) 09/09/21 21:06 Sodium 136 mmol/L (136-145) 09/09/21 19: Potassium 4.2 mmol/L (3.5-5.1) 09/09/21: Chloride 102 mmol/L (98-107) 09/09/21: Carbon Dioxide 21 mmol/L (22-29) L 09/09/21 19: Anion Gap 17.2 (5-19) 09/09/21 19: BUN 9 mg/dL (6-20) 09/09/21: Creatinine 0.6 mg/dL (0.5-0.9) 09/09/21 19: GFR Calculation 102.3 mL/min (90-130) 09/09/21 19: Glucose 149 mg/dL (65-115) H 09/09/21 19: Calculated Osmolality 283 mOsm/kg (285-295) L 09/09/21 19: Calcium 9.9 mg/dL (8.5-10.5) 09/09/21 19: Total Bilirubin 0.2 mg/dL (0.15-1.2) 09/09/21 19: AST 16 U/L (0-32) 09/09/21 19: ALT 11 U/L (0-33) 09/09/21: Alkaline Phosphatase 167 IU/L (35-105) H 09/09/21 19: Troponin T Baseline 11 ng/L (0-10) H 09/09/21 19: Troponin T 120 Minute 6.00 ng/L (0-10) 09/09/21 21:06 Delta Troponin T -5.00 ABS# (0-10) L 09/09/21 21:06 Troponin T Hi Sens 6Hr 7.11 ng/L (0-10) 09/10/21 01:15 Troponin T Hi Sens 6Hr Delta -3.89 ng/L (0-12) L 09/10/21 01:15 Total Protein 7.0 g/dL (6.6-8.7) 09/09/21 19: Albumin 4.5 g/dL (3.5-5.2) 09/09/21 19: Globulin 2.5 g/dL (1.3-4.6) 09/09/21 19: TSH 3.05 uIU/mL (0.27-4.20) 09/10/21 01:15 Free T4 1.06 ng/dL (0.82-1.77) 09/10/21 01:15 Free T3 2.5 PG/ML (2.0-4.4) 09/10/21 01:15 Vitals Last Vital Signs Temp 97.6 F 09/10/21 11:09 Pulse 65 09/10/21 11:09 Resp 20 H 09/10/21 11:09 BP 104/67 09/10/21 11:09 Pulse Ox 92 09/10/21 11:09 Discharge Plan Discharge Patient Disposition: Home Condition: Stable Prescriptions: New nitroglycerin 0.4 mg Tablet, Sublingual 0.4 mg sublingual Q5M PRN (Reason: Chest Pain) 30 Days Qty: 30 0RF Continued coenzyme Q10 [Co Q-10] 400 mg capsule 400 mg PO BEDTIME 0RF cholecalciferol (vitamin D3) 25 mcg (1,000 unit) capsule 25 mcg PO BEDTIME 0RF citalopram [Celexa] 40 mg tablet 40 mg PO .morning Qty: 90 2RF Rx Instructions: Take one tablet every morning Lantus Solostar U-100 Insulin 100 unit/mL (3 mL) insulin pen 15 unit SUBCUT DIRECTED 0RF Rx Instructions: 15 units at bedtime and 20 units in morning quetiapine [Seroquel] 25 mg tablet 25 mg PO BID PRN (Reason: anxiety/agitation) Qty: 60 3RF Rx Instructions: May take half to one tablet twice per day as needed for anxiety/agitation albuterol sulfate [Proventil HFA] 90 mcg/actuation HFA aerosol inhaler 2 puff inhalation Q6H PRN (Reason: shortness of breath or wheezing) Qty: 8.5 3RF Protonix 40 mg tablet,delayed release (DR/EC) 40 mg PO BID Qty: 180 1RF Rx Instructions: 340 B gemfibrozil 600 mg tablet 600 mg PO BID 90 Days Qty: 60 0RF isosorbide mononitrate 30 mg tablet extended release 24 hr 45 mg PO BID Qty: 270 3RF montelukast [Singulair] 10 mg tablet 10 mg PO DAILY Qty: 30 3RF diphenhydramine HCl [Benadryl Allergy] 25 mg Tablet 25 mg PO BEDTIME 0RF Women's 50 Plus Multivitamin 400 mcg-500 mg calcium-20 mcg Tablet 1 tab PO DAILY 0RF sennosides-docusate sodium [Stool Softener-Laxative] 8.6-50 mg Tablet 1 tab-cap PO BEDTIME PRN (Reason: Constipation) 0RF aspirin 81 mg Tablet,Delayed Release (Dr/Ec) 81 mg PO BEDTIME 0RF hydrocodone-acetaminophen 7.5-325 mg Tablet 1 tab PO QID PRN (Reason: Pain) 0RF loratadine [Claritin] 10 mg Tablet 10 mg PO DAILY 0RF magnesium oxide 400 mg magnesium Tablet 400 mg PO BEDTIME 0RF atorvastatin 40 mg Tablet 40 mg PO BEDTIME 0RF methocarbamol 500 mg tablet 500 mg PO BID PRN (Reason: Muscle Spasm) 0RF Novolin R Flexpen 100 unit/mL (3 mL) insulin pen See Rx Instructions .ROUTE .COMPLEX 0RF Rx Instructions: 8-16 unit subcutaneously WITH MEALS PLUS SLIDING SCALE (MAX 50 UNITS ) Discharge Orders: Discharge Order (Routine); Ordered 09/10/21 Ordered By: Reji Dominguez Referrals: Reji,Bethany, MULLING MACHINE OPERATOR [Primary Care Provider] - Discharge Diet: Cardiac Discharge Activity: Resume usual activity Patient Instructions: Opioid Safety Activity Restrictions/Additional Instructions: -If you have recurrent chest pain please go to the emergency room -Follow-up with primary care provider in 1 week Discharge Attestations Time Spent in Discharge Care*: less than 30 min Quality Metrics Clinical Quality Measures [ No reported AMI, CVA or VTE this stay] Coding Level of Care Code Acute Chg FW DC note Diagnoses Chest pain R07.9
[2021-09-10 12:04] LABS: Glucose Point of Care 218 mg/dL (70-110)
[2021-09-10 13:52] VITALS: BP 102/67; PULSE 65; RESP 20; TEMP 36.4; O2SAT 92
--- NOTE | 2021-09-10 13:53 | PC.NURSE ---
Nurse reviewed discharge information with the patient. Patient signature form signed. Patient taken out to private vehicle driven by family member.
--- NOTE | 2021-09-10 22:53 | NMCV_ITS ---
NM teri perf SPECT r/s* [id number] Marcy Marina Age: 61 Gender: F : 1960 Exam Date: 09/10/2021 06:55 Ordering Phys: Dayami Gayle MD Technologist: DAGMAR Jensen Exam Location: [facility] Indications: CHEST PAIN STRESS TEST Please see separate stress test report in [facility] for full findings IMAGE PROTOCOL Rest/Stress 1 Lexiscan Day Radiopharmaceutical Dose (mCi) Administration Site Administered by Rest: Tc-99m 10.8 IV DAGMAR Chavez Sestamibi Stress:Tc-99m 32.6 IV DAGMAR Chavez Sestamibi Rest: 10-Sep-2021 60 Discovery 630 Stress: 10-Sep-2021 30 Discovery 630 0.4mg Lexiscan. Supine position only as patient was unable to lay prone. SPECT RESULTS Technical Quality: Excellent Raw Data Analysis: Normal Image Corrections: No attenuation or motion correction applied Summed Stress Score: 1 Summed Rest Score: 0 Summed Difference Score: 1 PERFUSION FINDINGS There is homogenous radiotracer uptake throughout the myocardium FUNCTIONAL RESULTS (calculated via Gated SPECT) Stress Image LV EF (%): 68 Stress EDV (mL):98 TID: 1.02 Stress ESV (mL):31 FUNCTIONAL FINDINGS: There is normal left ventricular systolic function. IMPRESSIONS 1. Normal myocardial perfusion imaging with no evidence of ischemia 2. LV systolic function is normal Inder Borges MD (Electronically Signed) Final Date: 10 September 2021 09:38 S
[2021-09-11 07:50] LABS: Glucose Point of Care 143 mg/dL (70-110)
== END 2021-09-10 13:54 | disposition home or self-care (01) ==
LOC: ER 22:02 → MEDSURG 22:58
PROVIDERS: Emergency Medicine; Admitting Provider Student in an Organized Health Care Education/Training Program; Emergency Provider Emergency Medicine; PCP Nurse Practitioner Family; Visit Provider Family Medicine
DX: R07.9 Chest pain, unspecified (principal); R06.02 Shortness of breath; R68.84 Jaw pain; E11.9 Type 2 diabetes mellitus without complications; Z79.4 Long term (current) use of insulin; E78.5 Hyperlipidemia, unspecified; J44.9 Chronic obstructive pulmonary disease, unspecified; Z79.82 Long term (current) use of aspirin; F17.210 Nicotine dependence, cigarettes, uncomplicated; Z82.49 Family history of ischemic heart disease and other diseases of the circulatory system; Z83.3 Family history of diabetes mellitus
CPT/HCPCS: 36415; 36416; 70450; 70496; 70498; 71045; 71275; 74174; 78452; 80053; 82962; 84439; 84443; 84481; 84484; 85025; 85378; 93005; 96374; 96375; 99285; A9500; G0378; J0280; J1170; J1815; J2785; J3490; Q9967

== ENCOUNTER → 2021-09-13 09:10 | Outpatient (BNVA) | payer MEDICARE, OTHER, SELFPAY | PROVIDERS: PCP Nurse Practitioner Family; Visit Provider Social Worker | DX: F43.12 Post-traumatic stress disorder, chronic (principal); F41.1 Generalized anxiety disorder; F33.2 Major depressive disorder, recurrent severe without psychotic features | CPT/HCPCS: 90837; 90834 ==

== ENCOUNTER → 2021-09-20 09:06 | Outpatient (BNVA) | payer MEDICARE, OTHER, SELFPAY | PROVIDERS: PCP Nurse Practitioner Family; Visit Provider Social Worker | DX: F43.12 Post-traumatic stress disorder, chronic (principal); F33.2 Major depressive disorder, recurrent severe without psychotic features; F41.1 Generalized anxiety disorder | CPT/HCPCS: 90834 ==

== ENCOUNTER → 2021-09-27 08:19 | Outpatient (BNVA) | payer MEDICARE, OTHER, SELFPAY | PROVIDERS: PCP Nurse Practitioner Family; Visit Provider Social Worker | DX: F41.1 Generalized anxiety disorder (principal); F43.12 Post-traumatic stress disorder, chronic; F33.2 Major depressive disorder, recurrent severe without psychotic features | CPT/HCPCS: 90832 ==

== ENCOUNTER → 2021-10-13 09:32 | Outpatient (BNVA) | payer MEDICARE, OTHER, SELFPAY | PROVIDERS: PCP Nurse Practitioner Family; Visit Provider Social Worker | DX: F41.1 Generalized anxiety disorder (principal); F43.12 Post-traumatic stress disorder, chronic; F33.2 Major depressive disorder, recurrent severe without psychotic features | CPT/HCPCS: 90834 ==

== ENCOUNTER → 2021-10-25 10:16 | Outpatient (BNVA) | payer MEDICARE, OTHER, SELFPAY | PROVIDERS: PCP Nurse Practitioner Family; Visit Provider Social Worker | DX: F41.1 Generalized anxiety disorder (principal); F43.12 Post-traumatic stress disorder, chronic; F33.2 Major depressive disorder, recurrent severe without psychotic features | CPT/HCPCS: 90837; 90834 ==

== ENCOUNTER → 2021-11-01 10:28 | Outpatient (BNVA) | payer MEDICARE, OTHER, SELFPAY | PROVIDERS: PCP Nurse Practitioner Family; Visit Provider Social Worker | DX: F41.1 Generalized anxiety disorder (principal); F43.12 Post-traumatic stress disorder, chronic; F33.2 Major depressive disorder, recurrent severe without psychotic features | CPT/HCPCS: 90837; 90834 ==

== ENCOUNTER → 2021-11-08 09:28 | Outpatient (BNVA) | payer MEDICARE, OTHER, SELFPAY | PROVIDERS: PCP Nurse Practitioner Family; Visit Provider Social Worker | DX: F41.1 Generalized anxiety disorder (principal); F43.12 Post-traumatic stress disorder, chronic; F33.2 Major depressive disorder, recurrent severe without psychotic features | CPT/HCPCS: 90837; 90834 ==

== ENCOUNTER → 2021-11-15 07:32 | Outpatient (BNVA) | payer MEDICARE, OTHER, SELFPAY | PROVIDERS: PCP Nurse Practitioner Family; Visit Provider Social Worker | DX: F41.1 Generalized anxiety disorder (principal); F43.12 Post-traumatic stress disorder, chronic; F33.2 Major depressive disorder, recurrent severe without psychotic features | CPT/HCPCS: 90834 ==

== ENCOUNTER → 2021-11-16 09:19 | Outpatient (BNVA) | payer MEDICARE, OTHER, SELFPAY | PROVIDERS: PCP Nurse Practitioner Family; Visit Provider Nurse Practitioner Psychiatric/Mental Health | DX: F33.2 Major depressive disorder, recurrent severe without psychotic features (principal); F41.1 Generalized anxiety disorder; F17.210 Nicotine dependence, cigarettes, uncomplicated | CPT/HCPCS: 99214 ==

== ENCOUNTER → 2021-11-30 09:19 | Outpatient (BNVA) | payer MEDICARE, OTHER, SELFPAY | PROVIDERS: PCP Nurse Practitioner Family; Visit Provider Social Worker | DX: F41.1 Generalized anxiety disorder (principal); F33.2 Major depressive disorder, recurrent severe without psychotic features | CPT/HCPCS: 90834 ==

== ENCOUNTER → 2021-12-13 10:20 | Outpatient (BNVA) | payer MEDICARE, OTHER, SELFPAY | PROVIDERS: PCP Nurse Practitioner Family; Visit Provider Social Worker | DX: F41.1 Generalized anxiety disorder (principal); F33.2 Major depressive disorder, recurrent severe without psychotic features | CPT/HCPCS: 90834 ==

== ENCOUNTER → 2022-06-13 10:04 | Outpatient (BNVA) | payer MEDICARE, OTHER, SELFPAY | PROVIDERS: PCP Nurse Practitioner Family; Visit Provider Internal Medicine Rheumatology | DX: M19.90 Unspecified osteoarthritis, unspecified site (principal); Z79.899 Other long term (current) drug therapy; Z11.59 Encounter for screening for other viral diseases; M25.50 Pain in unspecified joint; Z11.1 Encounter for screening for respiratory tuberculosis; E11.9 Type 2 diabetes mellitus without complications; Z79.4 Long term (current) use of insulin; F17.210 Nicotine dependence, cigarettes, uncomplicated; Z71.6 Tobacco abuse counseling | CPT/HCPCS: 73130; 73630; 80076; 82306; 82565; 85025; 85651; 86140; 86200; 86431; 86480; 86704; 86803; 87340; 99204 ==

== ENCOUNTER → 2022-09-12 13:14 | Outpatient (BNVA) | payer MEDICARE, OTHER, SELFPAY | PROVIDERS: PCP Nurse Practitioner Family; Visit Provider Internal Medicine Rheumatology | DX: Z79.899 Other long term (current) drug therapy (principal); M19.90 Unspecified osteoarthritis, unspecified site; E11.9 Type 2 diabetes mellitus without complications; Z79.4 Long term (current) use of insulin; Z71.6 Tobacco abuse counseling | CPT/HCPCS: 99214 ==

== ENCOUNTER → 2022-12-06 08:53 | Outpatient (BNVA) | payer MEDICARE, OTHER, SELFPAY | PROVIDERS: PCP Nurse Practitioner Family; Referring Provider Anesthesiology Pain Medicine; Visit Provider Orthopaedic Surgery | DX: Z01.818 Encounter for other preprocedural examination (principal); M54.9 Dorsalgia, unspecified; Z79.899 Other long term (current) drug therapy | CPT/HCPCS: 36415; 72070; 72110; 80053; 81003; 83036; 85025; 99204 ==

== ENCOUNTER → 2023-01-10 16:55 | Outpatient (BNVA) | payer OTHER, SELFPAY | PROVIDERS: PCP Nurse Practitioner Family; Visit Provider Dermatology | DX: F43.12 Post-traumatic stress disorder, chronic (principal); Z79.899 Other long term (current) drug therapy | CPT/HCPCS: 80061 ==

== ENCOUNTER → 2023-04-19 13:30 | Outpatient (BNVA) | payer MEDICARE, SELFPAY ==
[2023-02-03 15:45] VITALS: BP 121/70; BMI 33.4
== END ==
PROVIDERS: PCP Nurse Practitioner Family; Visit Provider Internal Medicine Rheumatology
DX: Z79.899 Other long term (current) drug therapy (principal); E11.9 Type 2 diabetes mellitus without complications; Z79.4 Long term (current) use of insulin; Z71.6 Tobacco abuse counseling; M06.041 Rheumatoid arthritis without rheumatoid factor, right hand; M06.042 Rheumatoid arthritis without rheumatoid factor, left hand
CPT/HCPCS: 99214

== ENCOUNTER 2023-06-08 13:03 | Outpatient (CLI) | payer MEDICARE, MEDICAID, SELFPAY ==
[2023-02-03 15:45] VITALS: BP 121/70; BMI 33.4
[2023-06-08 13:37] LABS: Basophils # 0.1 10^3/uL (0.0-0.1); Basophils % 1.1 %; Eosinophils # 0.2 10^3/uL (0.0-0.8); Eosinophils % 1.6 %; Hematocrit 41.9 % (36-47); Lymphocytes # 3.2 10^3/uL (0.8-4.8); Lymphocytes % 31.9 %; Mean Corpuscular HGB Conc 32.5 g/dL (30-55); Mean Corpuscular Hemoglobin 29.4 pg (27-33); Mean Corpuscular Volume 90.5 fl (85-98); Mean Platelet Volume 9.8 fL (7.4-10.4); Monocytes # 0.6 10^3/uL (0.2-0.9); Monocytes % 6.2 %; Neutrophils # 5.93 10^3/uL (1.8-7.7); Neutrophils % 58.8 %; Nucleated Red Blood Cells % 0 %; Platelet Count 344 10^3/cmm (157-399); Red Blood Count 4.63 10^6/uL (3.85-5.65); Red Cell Distribution Width 12.3 % (12.1-15.1); White Blood Count 10.08 10^3/uL (3.29-11.43)
[2023-06-08 13:54] LABS: Alanine Aminotransferase 12 U/L (0-33); Alkaline Phosphatase 138 U/L (35-105); Aspartate Amino Transferase 14 U/L (0-32); C Reactive Protein 7.1 mg/L (0.0-4.9); Globulin 2.6 g/dL (1.3-4.6); Glomerular Filtration Rate 85.1 mL/min (90-130); Total Bilirubin 0.2 mg/dL (0.15-1.2); Total Protein 6.6 g/dL (6.6-8.7)
== END 2023-06-08 13:04 | disposition home or self-care (01) ==
LOC: LAB 13:04
PROVIDERS: PCP Nurse Practitioner Family; Visit Provider Internal Medicine Rheumatology
DX: M06.041 Rheumatoid arthritis without rheumatoid factor, right hand (principal); M06.042 Rheumatoid arthritis without rheumatoid factor, left hand; Z79.899 Other long term (current) drug therapy
CPT/HCPCS: 36415; 80076; 82565; 85025; 86140

== ENCOUNTER → 2023-07-26 14:10 | Outpatient (BNVA) | payer MEDICARE, MEDICAID, SELFPAY ==
[2023-02-03 15:45] VITALS: BP 121/70; BMI 33.4
== END ==
PROVIDERS: PCP Nurse Practitioner Family; Visit Provider Internal Medicine Rheumatology
DX: M06.041 Rheumatoid arthritis without rheumatoid factor, right hand (principal); M06.042 Rheumatoid arthritis without rheumatoid factor, left hand; Z79.899 Other long term (current) drug therapy; E11.9 Type 2 diabetes mellitus without complications; Z79.4 Long term (current) use of insulin; Z71.6 Tobacco abuse counseling; M25.552 Pain in left hip
CPT/HCPCS: 73502; 99214

== ENCOUNTER 2023-09-06 09:28 | Outpatient (CLI) | payer MEDICARE, SELFPAY ==
[2023-02-03 15:45] VITALS: BP 121/70; BMI 33.4
[2023-09-06 10:21] LABS: Basophils # 0.1 10^3/uL (0.0-0.1); Basophils % 0.7 %; Eosinophils # 0.4 10^3/uL (0.0-0.8); Eosinophils % 3.6 %; Hematocrit 39.1 % (36-47); Lymphocytes # 3.3 10^3/uL (0.8-4.8); Lymphocytes % 33.5 %; Mean Corpuscular HGB Conc 32.7 g/dL (30-55); Mean Corpuscular Hemoglobin 29.7 pg (27-33); Mean Corpuscular Volume 90.7 fl (85-98); Mean Platelet Volume 9.8 fL (7.4-10.4); Monocytes # 0.7 10^3/uL (0.2-0.9); Monocytes % 6.8 %; Neutrophils # 5.41 10^3/uL (1.8-7.7); Neutrophils % 55.1 %; Nucleated Red Blood Cells % 0 %; Platelet Count 355 10^3/cmm (157-399); Red Blood Count 4.31 10^6/uL (3.85-5.65); White Blood Count 9.82 10^3/uL (3.29-11.43)
[2023-09-06 10:49] LABS: Alanine Aminotransferase 9 U/L (0-33); Albumin Level 3.6 g/dL (3.5-5.2); Alkaline Phosphatase 127 U/L (35-105); Aspartate Amino Transferase 11 U/L (0-32); C Reactive Protein 9.3 mg/L (0.0-4.9); Globulin 2.7 g/dL (1.3-4.6); Glomerular Filtration Rate 101.6 mL/min (90-130); Total Bilirubin 0.2 mg/dL (0.15-1.2); Total Protein 6.3 g/dL (6.6-8.7)
== END 2023-09-06 09:29 | disposition home or self-care (01) ==
PROVIDERS: PCP Nurse Practitioner Family; Visit Provider Internal Medicine Rheumatology
DX: M06.041 Rheumatoid arthritis without rheumatoid factor, right hand (principal); M06.042 Rheumatoid arthritis without rheumatoid factor, left hand; Z79.899 Other long term (current) drug therapy
CPT/HCPCS: 36415; 80076; 82565; 85025; 86140

== ENCOUNTER → 2023-09-11 10:57 | Outpatient (BNVA) | payer MEDICARE, SELFPAY ==
[2023-02-03 15:45] VITALS: BP 121/70; BMI 33.4
== END ==
PROVIDERS: PCP Nurse Practitioner Family; Visit Provider Podiatrist Foot & Ankle Surgery
DX: L60.3 Nail dystrophy (principal); G62.9 Polyneuropathy, unspecified; Z79.4 Long term (current) use of insulin; E11.42 Type 2 diabetes mellitus with diabetic polyneuropathy
CPT/HCPCS: 11721

== ENCOUNTER 2023-09-15 11:19 | Outpatient (CLI) | payer MEDICARE, SELFPAY ==
[2023-02-03 15:45] VITALS: BP 121/70; BMI 33.4
--- NOTE | 2023-09-15 11:23 | MM_ITS ---
WS: [id number] BILATERAL SCREENING DIGITAL TOMOSYNTHESIS MAMMOGRAM WITH CAD HISTORY: SCREENING COMPARISON: 01/25/2021 and 02/27/2014 Bilateral CC and MLO views with tomosynthesis and synthetic mammography submitted. Computer aided det ection analyzed. Breast composition: There are scattered areas of fibroglandular density. No suspicious masses, microc alcifications or architectural distortion. Benign calcifications. IMPRESSION: MM/[place] [id number] BI-RADS: 2-Benign FOLLOW UP: 1 Year Follow-up
== END 2023-09-15 11:20 | disposition home or self-care (01) ==
LOC: RAD 11:20
PROVIDERS: PCP Nurse Practitioner Family; Visit Provider Nurse Practitioner Family
DX: Z12.31 Encounter for screening mammogram for malignant neoplasm of breast (principal)
CPT/HCPCS: 77063; 77067

== ENCOUNTER 2023-12-21 09:03 | Outpatient (CLI) | payer MEDICARE, SELFPAY ==
[2023-02-03 15:45] VITALS: BP 121/70; BMI 33.4
[2023-12-21 09:44] LABS: Basophils # 0.1 10^3/uL (0.0-0.1); Basophils % 0.9 %; Eosinophils # 0.3 10^3/uL (0.0-0.8); Eosinophils % 2.1 %; Hematocrit 40.8 % (36-47); Lymphocytes # 3.8 10^3/uL (0.8-4.8); Lymphocytes % 31.6 %; Mean Corpuscular HGB Conc 32.6 g/dL (30-55); Mean Corpuscular Hemoglobin 30.3 pg (27-33); Mean Corpuscular Volume 92.9 fl (85-98); Mean Platelet Volume 8.9 fL (7.4-10.4); Monocytes # 0.7 10^3/uL (0.2-0.9); Neutrophils # 6.98 10^3/uL (1.8-7.7); Neutrophils % 58.6 %; Nucleated Red Blood Cells % 0 %; Platelet Count 373 10^3/cmm (157-399); Red Blood Count 4.39 10^6/uL (3.85-5.65); Red Cell Distribution Width 13.1 % (12.1-15.1); White Blood Count 11.92 10^3/uL (3.29-11.43)
[2023-12-21 09:59] LABS: Alanine Aminotransferase 12 U/L (0-33); Alkaline Phosphatase 128 U/L (35-105); Aspartate Amino Transferase 14 U/L (0-32); C Reactive Protein 8.1 mg/L (0.0-4.9); Globulin 2.6 g/dL (1.3-4.6); Glomerular Filtration Rate 101.6 mL/min (90-130); Total Bilirubin 0.2 mg/dL (0.15-1.2); Total Protein 6.6 g/dL (6.6-8.7)
== END 2023-12-21 09:04 | disposition home or self-care (01) ==
LOC: LAB 09:05
PROVIDERS: PCP Nurse Practitioner Family; Visit Provider Internal Medicine Rheumatology
DX: E11.42 Type 2 diabetes mellitus with diabetic polyneuropathy (principal); L84 Corns and callosities; L60.3 Nail dystrophy; M06.041 Rheumatoid arthritis without rheumatoid factor, right hand; M06.042 Rheumatoid arthritis without rheumatoid factor, left hand; Z79.899 Other long term (current) drug therapy; G62.9 Polyneuropathy, unspecified; Z79.4 Long term (current) use of insulin
CPT/HCPCS: 11055; 11721; 36415; 80076; 82565; 85025; 86140

== ENCOUNTER → 2024-01-03 10:54 | Outpatient (BNVA) | payer OTHER, SELFPAY ==
[2023-02-03 15:45] VITALS: BP 121/70; BMI 33.4
== END ==
PROVIDERS: PCP Nurse Practitioner Family; Visit Provider Nurse Practitioner Psychiatric/Mental Health
DX: F41.1 Generalized anxiety disorder (principal); Z79.899 Other long term (current) drug therapy
CPT/HCPCS: 80061; 83036

== ENCOUNTER → 2024-02-06 11:15 | Outpatient (BNVA) | payer MEDICARE, SELFPAY ==
[2024-02-06 10:53] VITALS: BP 134/79; BMI 37.3
== END ==
PROVIDERS: PCP Nurse Practitioner Family; Visit Provider Nurse Practitioner Family
DX: M19.042 Primary osteoarthritis, left hand (principal); S63.042A Subluxation of carpometacarpal joint of left thumb, initial encounter; X58.XXXA Exposure to other specified factors, initial encounter
CPT/HCPCS: 73130

== ENCOUNTER → 2024-02-22 08:42 | Outpatient (BNVA) | payer MEDICARE, SELFPAY ==
[2024-02-06 10:53] VITALS: BP 134/79; BMI 37.3
== END ==
PROVIDERS: PCP Nurse Practitioner Family; Visit Provider Podiatrist Foot & Ankle Surgery
DX: L60.3 Nail dystrophy (principal); G62.9 Polyneuropathy, unspecified; Z79.4 Long term (current) use of insulin; L84 Corns and callosities; E11.42 Type 2 diabetes mellitus with diabetic polyneuropathy
CPT/HCPCS: 11056; 11721

== ENCOUNTER → 2024-07-04 07:42 | Outpatient (BNVA) | payer MEDICARE, SELFPAY ==
[2024-06-28 09:09] VITALS: BP 134/79; BMI 37.3
== END ==
PROVIDERS: PCP Nurse Practitioner Family; Visit Provider Podiatrist Foot & Ankle Surgery
DX: L60.3 Nail dystrophy (principal); G62.9 Polyneuropathy, unspecified; Z79.4 Long term (current) use of insulin; L84 Corns and callosities; E11.42 Type 2 diabetes mellitus with diabetic polyneuropathy
CPT/HCPCS: 11056; 11721

== ENCOUNTER → 2024-08-12 12:52 | Outpatient (BNVA) | payer MEDICARE, SELFPAY ==
[2024-06-28 09:09] VITALS: BP 134/79; BMI 37.3
== END ==
PROVIDERS: PCP Nurse Practitioner Family; Visit Provider Internal Medicine Rheumatology
DX: Z79.899 Other long term (current) drug therapy (principal); E11.9 Type 2 diabetes mellitus without complications; Z79.4 Long term (current) use of insulin; Z71.6 Tobacco abuse counseling; M06.041 Rheumatoid arthritis without rheumatoid factor, right hand; M06.042 Rheumatoid arthritis without rheumatoid factor, left hand
CPT/HCPCS: 36415; 80076; 82565; 85025; 85651; 86140; 99214

== ENCOUNTER 2024-08-29 09:03 | Outpatient (CLI) | payer MEDICARE, MEDICAID, SELFPAY ==
[2024-06-28 09:09] VITALS: BP 134/79; BMI 37.3
--- NOTE | 2024-08-29 09:24 | XR_ITS ---
WS: [id number] Right wrist, 3 views, 08/29/2024 Clinical Data: PAIN IN R WRIST Comparison: Right hand, 06/13/2022 Findings: No fractures or dislocations are seen. There is osteoarthritis of the right CMC joint. The remainder of the carpal bones are unremarkable There is no soft tissue swelling. The distal radius and ulna are not remarkable. XR/XR wrist RT min 3V* [id number] Impression: Osteoarthritis of the right CMC joint.
== END 2024-08-29 09:04 | disposition home or self-care (01) ==
PROVIDERS: PCP Nurse Practitioner Family; Visit Provider Anesthesiology Pain Medicine
DX: M19.031 Primary osteoarthritis, right wrist (principal)
CPT/HCPCS: 73110

== ENCOUNTER 2024-09-18 08:26 | Outpatient (CLI) | payer MEDICARE, SELFPAY ==
[2024-06-28 09:09] VITALS: BP 134/79; BMI 37.3
[2024-09-18 09:50] LABS: Basophils # 0.1 10^3/uL (0.0-0.1); Basophils % 0.9 %; Eosinophils # 0.3 10^3/uL (0.0-0.8); Eosinophils % 2.8 %; Hematocrit 41.6 % (36-47); Lymphocytes # 2.8 10^3/uL (0.8-4.8); Lymphocytes % 27.6 %; Mean Corpuscular HGB Conc 30.5 g/dL (30-55); Mean Corpuscular Hemoglobin 28.1 pg (27-33); Mean Platelet Volume 9.7 fL (7.4-10.4); Monocytes # 0.7 10^3/uL (0.2-0.9); Monocytes % 6.5 %; Neutrophils # 6.31 10^3/uL (1.8-7.7); Nucleated Red Blood Cells % 0 %; Platelet Count 353 10^3/cmm (157-399); Red Blood Count 4.52 10^6/uL (3.85-5.65); Red Cell Distribution Width 13.9 % (12.1-15.1); White Blood Count 10.18 10^3/uL (3.29-11.43)
[2024-09-18 09:59] LABS: Erythrocyte Sedimentation Rate 27 mm/hr (0-15)
[2024-09-18 10:22] LABS: Alanine Aminotransferase 7 U/L (0-33); Albumin Level 3.7 g/dL (3.5-5.2); Alkaline Phosphatase 146 U/L (35-105); Aspartate Amino Transferase 15 U/L (0-32); C Reactive Protein 6.8 mg/L (0.0-4.9); Globulin 2.8 g/dL (1.3-4.6); Glomerular Filtration Rate 101.3 mL/min (90-130); Total Bilirubin 0.2 mg/dL (0.15-1.2); Total Protein 6.5 g/dL (6.6-8.7)
== END 2024-09-18 08:27 | disposition home or self-care (01) ==
LOC: LAB 08:29
PROVIDERS: Internal Medicine Rheumatology; PCP Nurse Practitioner Family; Visit Provider Internal Medicine
DX: M06.041 Rheumatoid arthritis without rheumatoid factor, right hand (principal); M06.042 Rheumatoid arthritis without rheumatoid factor, left hand; Z79.899 Other long term (current) drug therapy
CPT/HCPCS: 36415; 80076; 82565; 85025; 85651; 86140

== ENCOUNTER 2024-10-01 13:00 | Outpatient (CLI) | payer MEDICARE, SELFPAY ==
[2024-06-28 09:09] VITALS: BP 134/79; BMI 37.3
--- NOTE | 2024-10-01 13:05 | CT_ITS ---
WS: [id number] LDCT LUNG CANCER SCREENING TECHNIQUE: Noncontrast CT of the chest with coronal and sagittal reformatted images. CLINICAL INFORMATION: NICOTINE DEPENDENCE, CIGARETTES DLP: 108.01 mGy.cm DIvol: Mean CTDIvol: 2.50 (mGy) All CT scans at [facility] use at least one of these dose optimization techniques: automated exposure control; mA and/or kV adjustment per patient size (includes targeted exams where dose is matched to clinical indication); or iterative reconstruction. FINDINGS: Mild chronic emphysematous changes. 4 mm nodule RIGHT upper lobe anteriorly along the fissure. Subpleural nodule RIGHT lower lobe along the diaphragm measuring 5 mm Aortic calcification. No mediastinal or hilar lymphadenopathy. Normal GE junction. No axillary lymphadenopathy. Cholecystectomy clips. Adrenal glands are normal. Partially visualized hepatic cysts. Hepatomegaly. Nodular thyroid CT/CT lung screening [id number] IMPRESSION: LUNG-RADS: 2-Benign Appearance or Behavior FOLLOW UP: 12 Month: Continue annual screening with LDCT
== END 2024-10-01 13:01 | disposition home or self-care (01) ==
PROVIDERS: PCP Nurse Practitioner Family; Visit Provider Nurse Practitioner Family
DX: Z12.2 Encounter for screening for malignant neoplasm of respiratory organs (principal); F17.210 Nicotine dependence, cigarettes, uncomplicated; J43.8 Other emphysema; R91.8 Other nonspecific abnormal finding of lung field; I70.0 Atherosclerosis of aorta; Z90.49 Acquired absence of other specified parts of digestive tract; K76.89 Other specified diseases of liver; R16.0 Hepatomegaly, not elsewhere classified; E04.1 Nontoxic single thyroid nodule
CPT/HCPCS: 71271

== ENCOUNTER → 2024-11-20 08:07 | Outpatient (BNVA) | payer MEDICARE, SELFPAY ==
[2024-06-28 09:09] VITALS: BP 134/79; BMI 37.3
== END ==
PROVIDERS: PCP Nurse Practitioner Family; Visit Provider Podiatrist Foot & Ankle Surgery
DX: E11.42 Type 2 diabetes mellitus with diabetic polyneuropathy (principal); L60.3 Nail dystrophy; L84 Corns and callosities; G62.9 Polyneuropathy, unspecified; Z79.4 Long term (current) use of insulin; M20.10 Hallux valgus (acquired), unspecified foot
CPT/HCPCS: 11055; 11721; 99213

== ENCOUNTER → 2024-12-04 16:30 | Outpatient (BNVA) | payer MEDICARE, MEDICAID, SELFPAY ==
[2024-06-28 09:09] VITALS: BP 134/79; BMI 37.3
== END ==
PROVIDERS: PCP Nurse Practitioner Family; Visit Provider Emergency Medicine
DX: M24.832 Other specific joint derangements of left wrist, not elsewhere classified (principal)
CPT/HCPCS: 73110

== ENCOUNTER 2025-01-06 14:27 | Outpatient (CLI) | payer MEDICARE, SELFPAY ==
[2024-06-28 09:09] VITALS: BP 134/79; BMI 37.3
[2025-01-06 15:20] LABS: Hematocrit 41.0 % (36-47); Hemoglobin 13.00 g/dL (11.27-16.99); Mean Corpuscular HGB Conc 31.7 g/dL (30-55); Mean Corpuscular Hemoglobin 29.2 pg (27-33); Mean Corpuscular Volume 92.1 fl (85-98); Nucleated Red Blood Cells % 0 %; Platelet Count 513 10^3/cmm (157-399); Red Blood Count 4.45 10^6/uL (3.85-5.65); White Blood Count 10.63 10^3/uL (3.29-11.43)
[2025-01-06 15:41] LABS: Alanine Aminotransferase 11 U/L (0-33); Albumin Level 3.9 g/dL (3.5-5.2); Alkaline Phosphatase 133 U/L (35-105); Aspartate Amino Transferase 14 U/L (0-32); Globulin 2.8 g/dL (1.3-4.6); Total Protein 6.7 g/dL (6.6-8.7)
== END 2025-01-06 14:28 | disposition home or self-care (01) ==
LOC: LAB 14:33
PROVIDERS: PCP Nurse Practitioner Family; Visit Provider Internal Medicine Rheumatology
DX: M06.041 Rheumatoid arthritis without rheumatoid factor, right hand (principal); M06.042 Rheumatoid arthritis without rheumatoid factor, left hand
CPT/HCPCS: 36415; 80076; 82565; 85025; 85651; 86140

== ENCOUNTER → 2025-01-22 08:23 | Outpatient (BNVA) | payer MEDICARE, MEDICAID, SELFPAY ==
[2025-02-07 10:41] VITALS: BP 126/84; BMI 32.2
== END ==
PROVIDERS: PCP Nurse Practitioner Family; Visit Provider Podiatrist Foot & Ankle Surgery
DX: E11.42 Type 2 diabetes mellitus with diabetic polyneuropathy (principal); L60.3 Nail dystrophy; L84 Corns and callosities; Z79.4 Long term (current) use of insulin; G62.9 Polyneuropathy, unspecified; M20.12 Hallux valgus (acquired), left foot; M20.11 Hallux valgus (acquired), right foot
CPT/HCPCS: 11056; 11721

== ENCOUNTER 2025-01-30 15:12 | Outpatient (CLI) | payer MEDICARE, MEDICAID, SELFPAY ==
[2024-06-28 09:09] VITALS: BP 134/79; BMI 37.3
--- NOTE | 2025-01-30 15:21 | XRR_ITS ---
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 Views: 6 or more views. Including flexion and extension views. COMPARISON: CR XR lumbar spine min 4V [id number] 12/06/2022 9:23 AM FINDINGS: Bones/joints: Normal. No acute fracture. Grade 1 anterolisthesis of L5 on S1. No abnormal motion on flexion/extension images. Lower lumbar facet arthropathy. Soft tissues: Unremarkable. XR/XR lumbar spine 6V w f/e [id number] IMPRESSION: No lumbar spine compression fracture. No abnormal motion on flexion/extension images.
== END 2025-01-30 15:13 | disposition home or self-care (01) ==
PROVIDERS: PCP Nurse Practitioner Family; Visit Provider Student in an Organized Health Care Education/Training Program
DX: M47.817 Spondylosis without myelopathy or radiculopathy, lumbosacral region (principal)
CPT/HCPCS: 72114; 80061; 83036

== ENCOUNTER → 2025-02-03 13:35 | Outpatient (BNVA) | payer MEDICARE, SELFPAY ==
[2024-06-28 09:09] VITALS: BP 134/79; BMI 37.3
== END ==
PROVIDERS: PCP Nurse Practitioner Family; Visit Provider Registered Nurse Neonatal Intensive Care
DX: N39.0 Urinary tract infection, site not specified (principal)
CPT/HCPCS: 81000; 87086

== ENCOUNTER 2025-02-06 10:54 | Outpatient (CLI) | payer MEDICARE, SELFPAY ==
[2024-06-28 09:09] VITALS: BP 134/79; BMI 37.3
--- NOTE | 2025-02-06 11:02 | MR_ITS ---
WS: [id number] MRI LUMBAR SPINE NONCONTRAST TECHNIQUE: Sagittal T1, T2 and STIR imaging. Axial T1 and T2 imaging. CLINICAL INFORMATION: SPONDYLOSIS OF LUMBOSACRAL REGION W/O MYELOPATHY COMPARISON: MRI 2018 FINDINGS: Mild lumbar curve. No acute compression. Slight anterolisthesis L4 on L5 and L5 on S1. L1-L2: Normal. L2-L3: Mild facet arthropathy. L3-L4: Mild annular bulging. Narrowing of the RIGHT subarticular recess. Mild facet arthropathy. Spinal canal and foramen are patent. L4-L5: Mild disc bulging with moderate central canal stenosis. Impingement on the traversing LEFT greater than RIGHT L5 nerve roots in the subarticular recess. Moderate facet arthropathy with ligamentum flavum hypertrophy. Small LEFT foraminal protrusion with mild to moderate LEFT foraminal narrowing. This is new compared to previous. Recommend correlation LEFT L4 and bilateral L5 nerve root symptoms. L5-S1: Slight anterolisthesis. Mild disc bulging. Moderate LEFT foraminal narrowing with impingement on the exiting LEFT L5 nerve root. This is progressed compared to previous. LEFT synovial cyst contributes to impingement and is new from previous. Small synovial cyst measures 6 mm. RIGHT foramen is patent. LEFT facet effusion with associated edema. Bilateral facet synovitis with periarticular edema. This is also new compared to previous. This is likely inflammatory or degenerative. This also can be seen with instability. Visualized pelvic bony structures: Normal. Paravertebral soft tissues: Normal. Hepatomegaly. MR/MR lumbar spine wo con* [id number] IMPRESSION: 1. Moderate central canal stenosis L4-5 with impingement on the traversing LEF T greater than RIGHT L5 nerve roots. This appears similar and slightly progress ed compared to previous. 2. LEFT foraminal protrusion L4-5 is new compared to previous with impingement on the exiting LEFT L4 nerve root. 3. Grade 1 anterolisthesis L5 on S1. Moderate LEFT foraminal narrowing impinge s the exiting L5 nerve root with a new calcified 6 mm synovial cyst contributin g to impingement. 4. Bilateral facet synovitis L5-S1 with a LEFT facet effusion described above.
== END 2025-02-06 10:55 | disposition home or self-care (01) ==
LOC: RAD 10:55
PROVIDERS: PCP Nurse Practitioner Family; Visit Provider Student in an Organized Health Care Education/Training Program
DX: M47.817 Spondylosis without myelopathy or radiculopathy, lumbosacral region (principal); M48.061 Spinal stenosis, lumbar region without neurogenic claudication; M51.26 Other intervertebral disc displacement, lumbar region; M43.16 Spondylolisthesis, lumbar region; M99.63 Osseous and subluxation stenosis of intervertebral foramina of lumbar region
CPT/HCPCS: 72148

== ENCOUNTER 2025-03-12 07:03 | Outpatient (CLI) | payer MEDICARE, SELFPAY ==
[2025-02-07 10:41] VITALS: BP 126/84; BMI 32.2
--- NOTE | 2025-03-12 07:12 | MR_ITS ---
WS: [id number] MRI THORACIC SPINE with contrast HISTORY: MID BACK PAIN COMPARISON: None available. TECHNIQUE: Multiplanar sequences are performed in sagittal and axial planes. Mild increase in thoracic kyphosis centered at T6-7. No marrow edema or fracture. No signal abnormality within the cord. No cord compression. Conus tapers normally near L1. T1-2: Normal. T2-3: Mild bilateral facet arthritis and foraminal stenosis. T3-4: Mild bilateral facet arthritis. T4-5: Normal. T5-6: Mild facet arthritis and stenosis. T6-7: Normal. T7-8: Tiny RIGHT paracentral disc protrusion. Very slight contact on the RIGHT lateral thoracic cord and mild foraminal stenosis. T8-9: Normal. T9-10: Mild bilateral foraminal stenosis. T10-11: Mild ligamentum flavum, facet arthritis and foraminal stenosis. T11-12: Mild bilateral facet joint arthritis, RIGHT greater than LEFT. Heterogeneous RIGHT thyroid nodule 1.9 x 2.0 cm. This can be followed by ultrasound. MR/MR thoracic spin wo con* [id number] IMPRESSION: 1. No high-grade central or foraminal stenosis. 2. No acute thoracic spine fractures. 3. Multilevel facet joint arthropathy and mild foraminal stenosis as above. 4. Tiny RIGHT paracentral disc protrusion at T7-8 with mild contact on the RIG HT lateral thoracic cord.
== END 2025-03-12 07:04 | disposition home or self-care (01) ==
LOC: RAD 07:04
PROVIDERS: PCP Nurse Practitioner Family; Visit Provider Student in an Organized Health Care Education/Training Program
DX: M54.12 Radiculopathy, cervical region (principal)
CPT/HCPCS: 72146

== ENCOUNTER → 2025-03-13 14:03 | Outpatient (BNVA) | payer MEDICARE, SELFPAY ==
[2025-02-07 10:41] VITALS: BP 126/84; BMI 32.2
== END ==
PROVIDERS: PCP Nurse Practitioner Family; Visit Provider Internal Medicine Rheumatology
DX: Z79.899 Other long term (current) drug therapy (principal); E11.9 Type 2 diabetes mellitus without complications; Z79.4 Long term (current) use of insulin; M06.041 Rheumatoid arthritis without rheumatoid factor, right hand; M06.042 Rheumatoid arthritis without rheumatoid factor, left hand; Z71.6 Tobacco abuse counseling; M06.09 Rheumatoid arthritis without rheumatoid factor, multiple sites
CPT/HCPCS: 36415; 82306; 86480; 86704; 86803; 87340; 99214

== ENCOUNTER → 2025-03-26 07:36 | Outpatient (BNVA) | payer MEDICARE, SELFPAY ==
[2025-02-07 10:41] VITALS: BP 126/84; BMI 32.2
== END ==
PROVIDERS: PCP Nurse Practitioner Family; Visit Provider Podiatrist Foot & Ankle Surgery
DX: M79.671 Pain in right foot (principal); E11.8 Type 2 diabetes mellitus with unspecified complications; L60.3 Nail dystrophy; G62.9 Polyneuropathy, unspecified; E11.42 Type 2 diabetes mellitus with diabetic polyneuropathy; Z79.4 Long term (current) use of insulin; L84 Corns and callosities; M20.10 Hallux valgus (acquired), unspecified foot
CPT/HCPCS: 11721; 73630; 99213

== ENCOUNTER → 2025-04-03 13:06 | Outpatient (BNVA) | payer MEDICARE, SELFPAY ==
[2025-02-07 10:41] VITALS: BP 126/84; BMI 32.2
== END ==
PROVIDERS: PCP Nurse Practitioner Family; Visit Provider Podiatrist Foot & Ankle Surgery
DX: E11.8 Type 2 diabetes mellitus with unspecified complications (principal); L60.3 Nail dystrophy; G62.9 Polyneuropathy, unspecified; E11.9 Type 2 diabetes mellitus without complications; Z79.4 Long term (current) use of insulin; L84 Corns and callosities; E11.42 Type 2 diabetes mellitus with diabetic polyneuropathy; M20.11 Hallux valgus (acquired), right foot
CPT/HCPCS: 99214

== ENCOUNTER 2025-04-21 05:59 | Day surgery (SDC) | payer MEDICARE, SELFPAY ==
[2025-02-07 10:41] VITALS: BP 126/84; BMI 32.2
--- NOTE | 2025-04-20 16:57 | ANES.PREANE2 ---
Pre-Anesthetic Assessment Height/Weight: Height 5 ft 4 in Preop Diagnosis: Bunion Operation Date: 04/21/25 07:00 Proposed Procedures p Bunionectomy Abel(Right) - Keith Nieves DPM s Donald Bunionectomy(Right) - Keith Nieves DPM Was Beta Danilo taken within 24 hours: N/A Was Clonidine taken within 24 hours: N/A Social Tobacco and No alcohol Exam alert, oriented x 3 and regular rate & rhythm Decreased breath sounds bilaterally Airway Submandibular: within normal limits Cervical ROM: within normal limits Mallampati: Class III Dentition: false Comments: Comments: Poor dentition, denies any loose teeth Anesthetic Plan ASA status: 3 Anesthesia: General Other: No prior issues with anesthesia NPO since yesterday evening History of GERD on Protonix IDDM, will check BS Patient also takes tirzepatide which was last taken 04/09/2025 Patient states that her blood sugar at midnight was 47 so she took glucose tablets Current smoker Prior EKG showing sinus rhythm Plan for general anesthesia with local via surgeon Medications/Allergies Home Medications ?Medication ?Instructions ?Recorded ?Confirmed ?Last Taken ?Type aspirin 81 mg tablet,delayed 81 mg PO BEDTIME 07/08/19 04/17/25 04/07/25 History release hydrocodone 7.5 mg-acetaminophen 1 tab PO QID PRN Pain 07/08/19 04/17/25 04/17/25 History 325 mg tablet loratadine 10 mg tablet (Claritin) 10 mg PO DAILY 07/08/19 04/17/25 04/17/25 History magnesium oxide 400 mg PO BEDTIME 07/08/19 04/17/25 04/17/25 History cholecalciferol (vitamin D3) 25 25 mcg PO BEDTIME 09/03/20 04/17/25 04/17/25 History mcg (1,000 unit) capsule pantoprazole 40 mg tablet,delayed 40 mg PO BID #180 tabs 11/02/20 04/17/25 04/17/25 Rx release (Protonix) atorvastatin 40 mg tablet 40 mg PO BEDTIME SEE PHARMACY 01/30/21 04/17/25 04/17/25 History COMMENTS montelukast 10 mg tablet 10 mg PO DAILY #30 tabs 04/16/21 04/17/25 04/17/25 Rx (Singulair) insulin regular human 100 unit/mL See Rx Instructions .Route .COMPLEX 09/08/21 04/17/25 04/17/25 History (3 mL) subcutaneous pen (Novolin R FlexPen) gpehizqw-fkx-xsjxn ac 400 1 tab PO DAILY 09/10/21 04/17/25 04/17/25 History mcg-calcium carb 500 mg-vit K1 20 mcg tablet (Women's 50 Plus Multivitamin) insulin degludec 100 unit/mL (3 12 unit SUBCUT BID 02/20/23 04/17/25 04/17/25 History mL) subcutaneous pen (Tresiba FlexTouch U-100 insulin) albuterol sulfate 90 mcg/actuation 2 puff inhalation Q6H PRN 04/28/23 04/17/25 04/17/25 Rx aerosol inhaler (Proventil HFA) shortness of breath or wheezing #8.5 grams coenzyme Q10 400 mg capsule (Co 100 mg PO BEDTIME 05/22/23 04/17/25 04/17/25 History Q-10) cyclobenzaprine 10 mg tablet 10 mg PO TID 12/14/23 04/17/25 04/17/25 History diphenhydramine HCl 25 mg tablet 25 mg PO BID 02/27/24 04/17/25 04/17/25 History (Benadryl Allergy) oxybutynin chloride 5 mg 5 mg PO DAILY 09/11/24 04/17/25 04/17/25 History tablet,extended release 24 hr diabetic shoes with 3 inserts #1 ea 09/18/24 04/16/25 Unknown Rx alprazolam 0.5 mg tablet 0.25 mg (1/2 x 0.5 mg) PO BID PRN 09/19/24 04/17/25 04/17/25 Rx anxiety #30 tabs tirzepatide 2.5 mg/0.5 mL 7.5 mg SUBCUT .weekly 12/20/24 04/17/25 04/09/25 History subcutaneous pen injector (Franchesca) citalopram 40 mg tablet (Celexa) 40 mg PO .morning #90 tabs 02/12/25 04/17/25 04/17/25 Rx adalimumab 40 mg/0.4 mL 40 mg (0.4 mL) SUBCUT Q14D #2 ea 03/13/25 04/17/25 Unknown Rx subcutaneous pen kit (Humira(CF) Pen) diclofenac sodium 75 mg 75 mg PO Q12H PRN moderate to 03/13/25 04/17/25 04/17/25 Rx tablet,delayed release severe pain as needed #30 tabs folic acid 1 mg tablet See Rx Instructions .Route 03/13/25 04/17/25 04/17/25 Rx .COMPLEX #90 tabs methotrexate sodium 2.5 mg tablet See Rx Instructions .Route 04/17/25 04/17/25 04/15/25 History .COMPLEX Rheumatoid Arthritis prednisone 10 mg tablet 30 mg PO DAILY PRN Pain, Mild 04/17/25 04/17/25 04/16/25 History prednisone 5 mg tablet 5 mg PO DAILY PRN joint pain flare 04/17/25 04/17/25 Unknown History Allergies Allergy/AdvReac Type Severity Reaction Status Date / Time chlorpheniramine (From Allergy ALGY-Anaphy Verified 04/17/25 09:24 Tussionex) laxis clavulanic acid Allergy ADR-Vomitin Verified 04/17/25 09:24 g erythromycin base Allergy ALGY-Hives Verified 04/17/25 09:24 lisinopril Allergy ADR-Cough Verified 04/17/25 09:24 metformin Allergy ADR-Diarrhe Verified 04/17/25 09:24 a morphine Allergy ALGY-Swell Verified 04/17/25 09:24 Lip/Tongue/Throat omeprazole (From Prilosec) Allergy ADR-Itching Verified 04/17/25 09:24 ondansetron (From Zofran) Allergy ALGY-Anaphy Verified 04/17/25 09:24 laxis Sulfa (Sulfonamide Allergy ALGY-Hives Verified 04/17/25 09:24 Antibiotics) tramadol Allergy ADR-Halluci Verified 04/17/25 09:24 nating Haldol AdvReac Intermediate Itch Uncoded 04/17/25 09:24 PFSH Anesthesia Medical History Bereavement of 38 years on 12/05/23 Seronegative rheumatoid arthritis of both hands Psychiatric care Encounter for smoking cessation counseling High risk medication use Inflammatory arthritis Left otitis media Nicotine dependence, cigarettes, uncomplicated Chronic post-traumatic stress disorder Generalized anxiety disorder Major depressive disorder, recurrent severe without psychotic features Torn rotator cuff Bilateral hand swelling Asthma Encounter for smoking cessation counseling Diastolic dysfunction Nicotine dependence, cigarettes, with unspecified nicotine-induced disorders Type 2 diabetes mellitus, with long-term current use of insulin COPD (chronic obstructive pulmonary disease) PTSD (post-traumatic stress disorder) GERD (gastroesophageal reflux disease) Hyperlipidemia Chest pain Surgical History History of parotid gland removal S/P appendectomy S/P rotator cuff repair H/O section History of mastoidectomy S/P hysterectomy S/P cholecystectomy Family History Other Diabetes Heart disease Hypercholesterolemia Hypertension Osteoporosis Thyroid disease Social History Smoking and tobacco/nicotine status: unknown if used tobacco/nicotine Quit status (tobacco/nicotine): considering quitting Second hand smoke exposure: Yes Alcohol intake: never Substance/Drug Use: never Adopted: No Caregiver/support person: Yes (her son) Lives independently: Yes Household members: family and other Details: 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
[2025-04-21] VITALS (11 sets, daily range): BP systolic 106–147; BP diastolic 56–83; PULSE 72–102; RESP 14–21; TEMP 36.7–37.2; O2SAT 94–97; BMI 28.8
--- NOTE | 2025-04-21 06:54 | W.PM.OPSFHP ---
Same Day Surgery H&P Indication for Procedure/HPI DATE OF PROCEDURE: April 21, 2025 CHIEF COMPLAINT/INDICATIONFOR SURGICAL PROCEDURE: Right bunion PREOP DIAGNOSIS: Bunion PLANNED PROCEDURE: Operation Date: 04/21/25 07:00 Proposed Procedures p Bunionectomy Abel(Right) - Keith Nieves DPM s Donald Bunionectomy(Right) - Keith Nieves DPM Medications/Allergies* Home Medications ?Medication ?Instructions ?Recorded ?Confirmed ?Type aspirin 81 mg tablet,delayed 81 mg PO BEDTIME 07/08/19 04/17/25 History release hydrocodone 7.5 mg-acetaminophen 1 tab PO QID PRN Pain 07/08/19 04/17/25 History 325 mg tablet loratadine 10 mg tablet (Claritin) 10 mg PO DAILY 07/08/19 04/17/25 History magnesium oxide 400 mg PO BEDTIME 07/08/19 04/17/25 History cholecalciferol (vitamin D3) 25 25 mcg PO BEDTIME 09/03/20 04/17/25 History mcg (1,000 unit) capsule atorvastatin 40 mg tablet 40 mg PO BEDTIME SEE PHARMACY 01/30/21 04/17/25 History COMMENTS insulin regular human 100 unit/mL See Rx Instructions .Route .COMPLEX 09/08/21 04/17/25 History (3 mL) subcutaneous pen (Novolin R FlexPen) cxjsapmy-kjx-cxvfa ac 400 1 tab PO DAILY 09/10/21 04/17/25 History mcg-calcium carb 500 mg-vit K1 20 mcg tablet (Women's 50 Plus Multivitamin) insulin degludec 100 unit/mL (3 12 unit SUBCUT BID 02/20/23 04/17/25 History mL) subcutaneous pen (Tresiba FlexTouch U-100 insulin) coenzyme Q10 400 mg capsule (Co 100 mg PO BEDTIME 05/22/23 04/17/25 History Q-10) cyclobenzaprine 10 mg tablet 10 mg PO TID 12/14/23 04/17/25 History diphenhydramine HCl 25 mg tablet 25 mg PO BID 02/27/24 04/17/25 History (Benadryl Allergy) oxybutynin chloride 5 mg 5 mg PO DAILY 09/11/24 04/17/25 History tablet,extended release 24 hr tirzepatide 2.5 mg/0.5 mL 7.5 mg SUBCUT .weekly 12/20/24 04/17/25 History subcutaneous pen injector (Franchesca) methotrexate sodium 2.5 mg tablet See Rx Instructions .Route 04/17/25 04/17/25 History .COMPLEX Rheumatoid Arthritis prednisone 10 mg tablet 30 mg PO DAILY PRN Pain, Mild 04/17/25 04/17/25 History prednisone 5 mg tablet 5 mg PO DAILY PRN joint pain flare 04/17/25 04/17/25 History Allergies/Adverse Reactions Allergy/AdvReac Type Severity Reaction Status Date / Time chlorpheniramine (From Allergy ALGY-Anaphy Verified 04/17/25 09:24 Tussionex) laxis clavulanic acid Allergy ADR-Vomitin Verified 04/17/25 09:24 g erythromycin base Allergy ALGY-Hives Verified 04/17/25 09:24 lisinopril Allergy ADR-Cough Verified 04/17/25 09:24 metformin Allergy ADR-Diarrhe Verified 04/17/25 09:24 a morphine Allergy ALGY-Swell Verified 04/17/25 09:24 Lip/Tongue/Throat omeprazole (From Prilosec) Allergy ADR-Itching Verified 04/17/25 09:24 ondansetron (From Zofran) Allergy ALGY-Anaphy Verified 04/17/25 09:24 laxis Sulfa (Sulfonamide Allergy ALGY-Hives Verified 04/17/25 09:24 Antibiotics) tramadol Allergy ADR-Halluci Verified 04/17/25 09:24 nating Haldol AdvReac Intermediate Itch Uncoded 04/17/25 09:24 Pertinent History/Comorbid Conditions* Medical History (Updated 11/24/24 @ 19:27 by Keith Nieves DPM) Bereavement of 38 years on 12/05/23 Seronegative rheumatoid arthritis of both hands Psychiatric care Encounter for smoking cessation counseling High risk medication use Inflammatory arthritis Left otitis media Nicotine dependence, cigarettes, uncomplicated Chronic post-traumatic stress disorder Generalized anxiety disorder Major depressive disorder, recurrent severe without psychotic features Torn rotator cuff Bilateral hand swelling Asthma Encounter for smoking cessation counseling Diastolic dysfunction Nicotine dependence, cigarettes, with unspecified nicotine-induced disorders Type 2 diabetes mellitus, with long-term current use of insulin COPD (chronic obstructive pulmonary disease) PTSD (post-traumatic stress disorder) GERD (gastroesophageal reflux disease) Hyperlipidemia Chest pain Surgical History (Updated 05/05/21 @ 19:06 by Radha Corley MD) History of parotid gland removal S/P appendectomy S/P rotator cuff repair H/O section History of mastoidectomy S/P hysterectomy S/P cholecystectomy Family History (Updated 01/11/23 @ 07:46 by Linda Ji LPN) Diabetes Osteoporosis Heart disease Hypercholesterolemia Hypertension Thyroid disease Social History Smoking and tobacco/nicotine status: unknown if used tobacco/nicotine Quit status (tobacco/nicotine): considering quitting Second hand smoke exposure: Yes Alcohol intake: never Substance/Drug Use: never Adopted: No Caregiver/support person: Yes (her son) Lives independently: Yes Household members: family and other Details: [facility] Housing: House Marital status: / Number of children: 3 Number of grandchildren: 14 Highest education level completed: Associate Degree: Academic Program 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 Current occupational status: disabled Current occupational exposures/hazards: No Pets and animals: Yes Pets & animals: cat(s) and dog(s) Leisure activites: other Leisure activities details: no free time Sexually active: No Do you think of yourself as: Straight/Heterosexual Current gender identity: Female Tori/Worship: Anabaptist Agree to transfusion: Yes Pertinent Exam Findings alert, oriented x 3, clear to auscultation bilaterally, regular rate & rhythm, operative site marked and procedure specific exam findings BELOW IS A FOCUSED LOWER EXTREMITY EXAM GENERAL: A&O x 3 VASCULAR: DP/PT pulses diminished with delayed capillary refill DERMATOLOGICAL: Diffuse plantar xerosis to bilateral feet. Clean, dry interspaces bilaterally. Thickened, elongated, dystrophic, discolored nails x10 with subungual debris. Digital hair is absent. Distal digits are cool to touch. Distal skin is thin and shiny with ruborous appearance/ callus right great toe. callus x2 MUSCULOSKELETAL: Pain with palpation of the medial eminence of the right first metatarsal head. No pain with range of motion of the first metatarsophalangeal joint. Increased hallux abduction deformity noted. Left foot alignment within normal limits. 5/5 muscle strength in all four quadrants when tested against resistance. NEUROLOGICAL: Neurological sensation to the affected foot and ankle is diminished through L4-S1 dermatomes via 10g SWMF, diminished sensation extends proximally to the level of the midfoot IMAGIN-view x-rays of the right foot were taken at today?s visit and independently interpreted by me. These show an increased 1?2 intermetatarsal angle measuring 19 degrees and an increased hallux valgus angle measuring 34 degrees, consistent with a moderate hallux valgus deformity. No fracture or dislocation noted. Recommendations Surgery/Procedure today Coding Level of Care Code Acute Code for g Fwd
[2025-04-21] MEDS: BUPivacaine 0.5% INJ 30 mL INJECTION (07:30)
[2025-04-21] MEDS: ceFAZolin 2,000 mg SDV 2000 MG IVP (07:30)
--- NOTE | 2025-04-21 08:17 | P.OP_ITS ---
Operative Report Date of procedure: April 21, 2025 Surgeon: Keith Nieves DPM Procedure: Date of procedure: 04/21/2025 Pre-op diagnosis: Right hallux valgus Post-op diagnosis: Same Post-op findings: Right hallux valgus Procedure done: Right foot Abel bunionectomy CPT 97484 Implants: 4.0 and 3.5 CHAVEZ screws from [employer] Specimens removed: None Surgeon: Dr. Keith Nieves DPM Residence Hall Director: See intraoperative Estimated blood loss: 10 cc Tourniquet time: No tourniquet used Complications: None Patient is a 64-year-old female that has a history of right hallux valgus deformity. The patient has had the aforementioned chief complaint for some time. Conservative treatment measures have been attempted and the patient has opted for surgical intervention at this time. A lengthy discussion regarding the procedure, including risks and complications has been had with the patient and is noted in the recent clinic note. Written and verbal consent have been obtained. All patient questions have been answered to the patient?s sati sfaction. No written or verbal guarantees have been given or implied. The patient has been NPO since midnight. The history has been reviewed and the history and physical is current. The signed consent was confirmed and placed in the patient chart. Patient imaging has been reviewed and is consistent with the diagnosis. Under mild sedation, the patient was brought into the operating room and placed on the table in the supine position. IV antibiotics were given by the anesthesia team as preoperative surgical prophylaxis. General sedation was then performed by the anesthesiateam. A pneumatic tourniquet was then placed about the right calf. The operative extremity was then prepped and draped in the usual fashion. The following procedure was then performed Attention was directed to the right foot where under fluoroscopic visualization 2 guidewires were driven from proximal medial to distal lateral across first metatarsal. Stab incision was made to medial aspect first metatarsal head with #15 blade. Kaylee bur was introduced into the incision. Distal metatarsal osteotomy was made using Kaylee bur. Capital fragment was then translated laterally in the transverse plane to reduce the 1?2 metatarsal angle. The guidewires were then advanced into the capital fragment. Cannulated drill was used to overdrilled the wires across the osteotomy site. A 4.0 and 3.5 screw from [employer] were then placed over the wires to maintain permanent fixation. It was determined that Prowers osteotomy would not be appropriate at this time. Sites were irrigated with sterile saline before incisions were closed using 4-0 nylon. Incisions were dressed using Xeroform, 4 x 4 gauze, Kerlix, Tad. The patient tolerated the procedure and anesthesia well and without complication. The patient was transported from the operating room to the recovery room with vital signs stable and vascular status intact to all digits of the right foot. The patient was given both written and verbal instructions to remain weightbearing as tolerated in postop shoe to the operative extremity, to keep dressings/splint clean, dry and intact and to take pain medication as directed. The patient will follow-up in the outpatient setting at their scheduled appointment. The patient was discharged with my personal number and was instructed to call if any questions or issues should arise. They were discharged home once anesthesia criteria was met.
[2025-04-21] MEDS: metoclopramide 5 mg/mL SDV 2 mL 10 MG IVP (08:47)
--- NOTE | 2025-04-21 09:48 | ANE.PACU2 ---
Inpatient post-anesthesia follow up: Airway intact: Yes Vital signs: Temperature 98.1 F Pulse Rate 72 Respiratory Rate 17 Blood Pressure 126/63 Pulse Oximetry 94 Oxygen Delivery Me thod Room Air Oxygen Flow Rate Fraction of Inspir ed Oxygen Hydration adequate: Yes Nausea and vomiting: No Pain level: 1 Mental status: Baseline
== END 2025-04-21 09:48 | disposition home or self-care (01) ==
PROVIDERS: PCP Nurse Practitioner Family; Visit Provider Podiatrist Foot & Ankle Surgery
PROC: (CPT 28296; principal; 2025-04-21 07:00)
PROC: (CPT 28298; 2025-04-21 07:00)
DX: M20.11 Hallux valgus (acquired), right foot (principal); E78.5 Hyperlipidemia, unspecified; E11.9 Type 2 diabetes mellitus without complications; J44.9 Chronic obstructive pulmonary disease, unspecified; F43.10 Post-traumatic stress disorder, unspecified; F32.9 Major depressive disorder, single episode, unspecified; F17.210 Nicotine dependence, cigarettes, uncomplicated; Z79.82 Long term (current) use of aspirin; Z79.891 Long term (current) use of opiate analgesic; Z79.4 Long term (current) use of insulin
CPT/HCPCS: 28296; 36416; 82962; C1713 ×2; J0690; J1100; J1885; J2405; J2704; J2765; J3010; J3490; J7030; J9999

== ENCOUNTER → 2025-04-29 11:10 | Outpatient (BNVA) | payer MEDICARE, SELFPAY ==
[2025-02-07 10:41] VITALS: BP 126/84; BMI 32.2
== END ==
PROVIDERS: PCP Nurse Practitioner Family; Visit Provider Podiatrist Foot & Ankle Surgery
DX: Z98.890 Other specified postprocedural states (principal); E11.42 Type 2 diabetes mellitus with diabetic polyneuropathy; L60.3 Nail dystrophy; L84 Corns and callosities; E11.8 Type 2 diabetes mellitus with unspecified complications; G62.9 Polyneuropathy, unspecified; Z79.4 Long term (current) use of insulin; M20.11 Hallux valgus (acquired), right foot
CPT/HCPCS: 73630; 99024

== ENCOUNTER → 2025-05-05 12:53 | Outpatient (BNVA) | payer MEDICARE, SELFPAY ==
[2025-02-07 10:41] VITALS: BP 126/84; BMI 32.2
== END ==
PROVIDERS: PCP Nurse Practitioner Family; Visit Provider Podiatrist Foot & Ankle Surgery
DX: E11.8 Type 2 diabetes mellitus with unspecified complications (principal); L60.3 Nail dystrophy; G62.9 Polyneuropathy, unspecified; Z79.4 Long term (current) use of insulin; L84 Corns and callosities; E11.42 Type 2 diabetes mellitus with diabetic polyneuropathy
CPT/HCPCS: 99024

== ENCOUNTER → 2025-05-19 14:30 | Outpatient (BNVA) | payer MEDICARE, MEDICAID, SELFPAY ==
[2025-02-07 10:41] VITALS: BP 126/84; BMI 32.2
== END ==
PROVIDERS: PCP Nurse Practitioner Family; Visit Provider Podiatrist Foot & Ankle Surgery
DX: Z98.890 Other specified postprocedural states (principal); E11.42 Type 2 diabetes mellitus with diabetic polyneuropathy; L60.3 Nail dystrophy; E11.8 Type 2 diabetes mellitus with unspecified complications; G62.9 Polyneuropathy, unspecified; Z79.4 Long term (current) use of insulin; L84 Corns and callosities; M20.11 Hallux valgus (acquired), right foot
CPT/HCPCS: 73630; 99024

== ENCOUNTER → 2025-06-02 12:49 | Outpatient (BNVA) | payer MEDICARE, SELFPAY ==
[2025-02-07 10:41] VITALS: BP 126/84; BMI 32.2
== END ==
PROVIDERS: PCP Nurse Practitioner Family; Visit Provider Podiatrist Foot & Ankle Surgery
DX: E11.8 Type 2 diabetes mellitus with unspecified complications (principal); L60.3 Nail dystrophy; G62.9 Polyneuropathy, unspecified; Z79.4 Long term (current) use of insulin; L84 Corns and callosities; M20.10 Hallux valgus (acquired), unspecified foot; E11.42 Type 2 diabetes mellitus with diabetic polyneuropathy; M20.11 Hallux valgus (acquired), right foot
CPT/HCPCS: 99024